=== PATIENT | male | born 1935 | race Caucasian/White ===

== ENCOUNTER → 2016-09-04 | Outpatient (CLI) | payer MEDICARE, BC ==
[2016-09-04 10:19] LABS: ALT 24 U/L (21-72); AST 21 U/L (17-59); Alkaline Phosphatase 86 U/L (38-126); Anion Gap 11 mmol/L; Blood Urea Nitrogen 22 mg/dL (9-20); Calcium 9.4 mg/dL (8.4-10.2); Carbon Dioxide 26 mmol/L (22-30); Chloride 104 mmol/L (98-107); Cholesterol 163 mg/dL (<200); Glucose 108 mg/dL (74-99); HDL Cholesterol 60 mg/dL (40-60); Non-African American GFR(MDRD) >60 (>60 ml/min/1.73 sqM); Sodium 141 mmol/L (137-145); Total Bilirubin 0.8 mg/dL (0.2-1.3); Triglycerides 82 mg/dL (<150)
== END | disposition home or self-care (01) ==
LOC: LABWHC1 09:41
PROVIDERS: ATTEND Internal Medicine Cardiovascular Disease
DX: I25.10 Atherosclerotic heart disease of native coronary artery without angina pectoris (principal); E78.5 Hyperlipidemia, unspecified
CPT/HCPCS: 36415; 80053; 80061

== ENCOUNTER → 2017-04-21 | Outpatient (CLI) | payer MEDICARE, BC ==
--- NOTE | 2017-04-21 15:05 | US ---
EXAMINATION TYPE: US duplex aorta DATE OF EXAM: 04/21/2017 COMPARISON: NONE CLINICAL HISTORY: Z87.891 HX OF NICOTINE USE,Z13.9 SCREENING. EXAM MEASUREMENTS: Abdominal Aorta: Proximal: 2.6cm Transverse Mid: 2.3cm Transverse Distal: 2.1cm Transverse Bifurcation: 1.4cm Transverse Right TARAN, and 1.4cm Transverse Left TARAN Exam is somewhat limitedly by overlying bowel gas at upper and mid aorta. Proximal abdominal aorta measures 2.4 x 2.6 cm transversely. Mid abdominal aorta measures 2.2 x 2.3 c m transversely. Distal abdominal aorta measures 2.1 x 2.1 cm transversely. Aorta is seen through comm on iliac bifurcation. IMPRESSION: Visualized portion of aorta shows no greater than 3 cm aneurysmal change on images saved.
== END | disposition home or self-care (01) ==
LOC: RADUSWWP 13:02
PROVIDERS: ATTEND Family Medicine
DX: Z09 Encounter for follow-up examination after completed treatment for conditions other than malignant neoplasm (principal); I71.4 Abdominal aortic aneurysm, without rupture; Z87.891 Personal history of nicotine dependence
CPT/HCPCS: 93979

== ENCOUNTER → 2017-06-30 | Outpatient (CLI) | payer MEDICARE, BC ==
[2017-06-30 15:56] LABS: HCT 40.3 % (39.0-53.0); HGB 12.8 gm/dL (13.0-17.5); MCH 30.2 pg (25.0-35.0); MCHC 31.9 g/dL (31.0-37.0); MCV 94.7 fL (80.0-100.0); Mean Platelet Volume 7.3; Platelet Count 176 k/uL (150-450); RBC 4.26 m/uL (4.30-5.90); WBC 6.3 k/uL (3.8-10.6)
[2017-06-30 16:07] LABS: Anion Gap 7 mmol/L; Blood Urea Nitrogen 30 mg/dL (9-20); Carbon Dioxide 27 mmol/L (22-30); Chloride 105 mmol/L (98-107); Potassium 4.8 mmol/L (3.5-5.1); Sodium 139 mmol/L (137-145)
== END | disposition home or self-care (01) ==
LOC: LABPAT 15:04
PROVIDERS: ATTEND Internal Medicine Cardiovascular Disease
DX: Z01.812 Encounter for preprocedural laboratory examination (principal); R00.1 Bradycardia, unspecified
CPT/HCPCS: 36415; 80051; 82565; 84520; 85027

== ENCOUNTER 2017-07-06 09:28 | Day surgery (SDC) | payer BC, MEDICARE ==
[2017-07-01 11:56] VITALS: BMI 28.7
[~2017-07-06 09:28] MED LIST: ceFAZolin 1,000 MG in SODIUM CHLORIDE 0.9% IRRIGATIO 250 ML IRRIGATION ONE; ceFAZolin IN SWFI 2 GM/20 ML SYRINGE IVP ONE
[2017-07-06] MEDS ORDERED: CITALOPRAM HYDROBROMIDE 20 MG TAB PO STA (09:55)
[2017-07-06] MEDS: SODIUM CHLORIDE 0.9% 1,000 ML IV SCH (09:55)
[2017-07-06 10:00] LABS: Glucose,Whole Blood 101 mg/dL (75-99)
[2017-07-06] MEDS ORDERED: SODIUM CHLORIDE 0.9% 250 ML IV ONE (11:51)
[2017-07-06] MEDS ORDERED: IOHEXOL 350 MG/ML 50ML BOTTLE INJ ONE (12:11)
[2017-07-06] MEDS ORDERED: MIDAZOLAM 2 MG/2 ML VIAL IVP ONE ×2 (12:15→12:26)
[2017-07-06] MEDS ORDERED: fentaNYL (PF) 50 MCG/ML 2 ML AMP IVP ONE (12:15)
[2017-07-06] MEDS ORDERED: ceFAZolin IN SWFI 2 GM/20 ML SYRINGE IVP ONE (12:15)
[2017-07-06] MEDS ORDERED: fentaNYL (PF) 50 MCG/ML 2 ML AMP ONE (12:19)
[2017-07-06] MEDS ORDERED: MIDAZOLAM 2 MG/2 ML VIAL ONE (12:19)
[2017-07-06] MEDS ORDERED: LIDOCAINE 2% INJ 20 MG/ML SQ ONE (12:25)
[2017-07-06] MEDS ORDERED: HYDROcodone/APAP 5-325MG 1 EACH TAB PO PRN (13:04)
[2017-07-06] MEDS ORDERED: ACETAMINOPHEN TAB 325 MG TAB PO PRN (13:04)
--- NOTE | 2017-07-06 13:12 | P.PCN ---
Date of Procedure: 07/06/17 Preoperative Diagnosis: Sick sinus syndrome, atrial fibrillation with a severe bradycardia and concomitant coronary artery disease Postoperative Diagnosis: The same Procedure(s) Performed: Single-chamber permanent pacemaker implantation, axillary venography Description of Procedure: HISTORY: This is a 82-year-old gentleman with history of ischemic heart disease and chronic atrial fibrillation. Patient has been having episodes of dizziness and severe bradycardia in spite of stopping beta blockers. Because of persistent bradycardia and need for beta adrian therapy, patient is advised to have permanent pacemaker implantation. CONSENT:I have discussed the risks, benefits and alternative therapies for the above-mentioned procedure and for both sedation/analgesia as well as necessary blood product administration, if indicated, as they pertain to this patient. The patient has indicated understanding and acceptance of the risks and procedures discussed. PROCEDURE: Patient was brought to the lab in a fasting state. Patient was prepped and draped in the usual fashion. Patient was given IV sedation with fentanyl and Versed. The skin below the right clavicle was infiltrated with lidocaine. An incision was made parallel to deltopectoral groove was deepened until the pectoral fascia was exposed. A pocket was created by blunt dissection and cautery. Axillary venography was performed to delineate the course of the axillary vein. 1 sticks was performed into extrathoracic portion of the axillary vein and one sheath was now he cannot walk sedation advanced over the guidewires and left in subclavian vein. Conscious Sedation: Versed 1 mg Fentanyl 50 g Duration 41 minutes LEADS: VENTRICULAR: This is manufactured by [employer]. Model number is [id number]. Serial number is [id number]. The ventricular lead is maneuvered l with help of a straight and curved stylets into the left ventricle apical region. Satisfactory position was obtained and threshold measurements were made. THRESHOLDS: VENTRICLE: The minimal patient threshold was 0.6 V at pulse width of 0.5 ms with impedance of 8 and 64 ohms R-wave:. 18 mV The leads and pulse generator remained in the pocket after it was washed with antibiotics. Pocket was closed in the usual fashion. The fascia was closed with 2-0 Prolene ,the subcutaneous tissue was closed with 3-0 Prolene and the skin was closed with 4-0 Prolene. PROGRAMMING: MODE: VVIR RATE: 60- 120 OUTPUT: Ventricle: 3.5 V at 0.5 ms FINAL IMPRESSION: #1. Successful implantation of single-chamber pacemaker #2. Axillary venography COMPLICATIONS: None PLAN: Patient will be monitored on the telemetry unit. Prophylactic antibiotic be continued. Chest x-ray will obtain tomorrow. If patient is stable, he'll be discharged home tomorrow morning.
[2017-07-06 17:25] LABS: Glucose,Whole Blood 137 mg/dL (75-99)
[2017-07-06 19:40] VITALS: RESP 18
[2017-07-06 20:25] LABS: Glucose,Whole Blood 135 mg/dL (75-99)
[2017-07-06] MEDS: ceFAZolin IN SWFI 2 GM/20 ML SYRINGE IVP SCH (21:41)
[2017-07-07] MEDS: ceFAZolin IN SWFI 2 GM/20 ML SYRINGE IVP SCH ×3 (03:40→16:24)
[2017-07-07] MEDS: SODIUM CHLORIDE 0.9% 1,000 ML IV SCH (05:45)
[2017-07-07 06:55] LABS: Glucose,Whole Blood 125 mg/dL (75-99)
[2017-07-07] MEDS ORDERED: CHOLECALCIFEROL 1,000 UNIT TAB PO SCH (09:00)
[2017-07-07] MEDS ORDERED: CITALOPRAM HYDROBROMIDE 20 MG TAB PO SCH (09:00)
--- NOTE | 2017-07-07 09:39 | P.DS ---
Providers Date of admission: 07/06/2017 Attending physician: Oscar Galo Primary care physician: Jw Ruby - Discharge Diagnosis(es) (1) Atrial fibrillation Current Visit: Yes Status: Acute (2) Symptomatic bradycardia Current Visit: Yes Status: Acute (3) CAD (coronary artery disease) Current Visit: Yes Status: Acute Hospital Course: This 82-year-old gentleman with history of coronary artery disease and chronic atrial fibrillation, has been having symptoms of fatigue and dizziness associated with severe bradycardia. Patient was taken off his beta adrian but continued to have severe bradycardia. Because of symptomatic bradycardia and also need for beta adrian therapy, patient is advised to have permanent pacemaker implantation. Patient was brought in for the procedure Yesterday, and a single-chamber pacemaker was inserted from the right subclavian vein approach. Patient tolerated the procedure well. He remained stable overnight. Pacemaker seems to function normally. Patient is feeling much better. His site looks normal without any hematoma. Patient complains of minimal discomfort. Chest x-ray showed proper lead position without any complications. Patient will be discharged home after the completion of the antibiotics and device check. Follow-up in the office in one week Patient Condition at Discharge: Good Plan - Discharge Summary Discharge Rx Participant: No New Discharge Prescriptions: New Cephalexin [Keflex] 500 mg PO Q8HR #10 cap HYDROcodone/APAP 5-325MG [[place] 5-325] 1 - 2 tab PO Q6HR PRN #10 tab PRN Reason: Pain Scale 1 To 5 No Action Citalopram Hydrobromide [CeleXA] 40 mg PO DAILY Apixaban [Eliquis] 5 mg PO BID Aspirin 325 mg PO DAILY metFORMIN HCL [Glucophage] 500 mg PO DAILY Cholecalciferol [Vitamin D3] 1,000 unit PO DAILY Discharge Medication List Citalopram Hydrobromide [CeleXA] 40 mg PO DAILY 03/14/16 [History] Apixaban [Eliquis] 5 mg PO BID 07/01/17 [History] Aspirin 325 mg PO DAILY 07/01/17 [History] Cholecalciferol [Vitamin D3] 1,000 unit PO DAILY 07/06/17 [History] metFORMIN HCL [Glucophage] 500 mg PO DAILY 07/06/17 [History] Cephalexin [Keflex] 500 mg PO Q8HR #10 cap 07/07/17 [Rx] HYDROcodone/APAP 5-325MG [[place] 5-325] 1 - 2 tab PO Q6HR PRN #10 tab 07/07/17 [ Rx] Follow up Appointment(s)/Referral(s): Oscar Galo MD [STAFF PHYSICIAN] - 1 Week
--- NOTE | 2017-07-07 11:12 | XR ---
EXAMINATION TYPE: XR chest 2V DATE OF EXAM: 07/07/2017 COMPARISON: Prior chest x-ray 03/14/2016 HISTORY: Lead placement check TECHNIQUE: Frontal and lateral views of the chest are obtained. FINDINGS: Interval placement of a generator in the right pectoral region, lead is present within the right ventricle. There is no focal air space opacity, pleural effusion, or pneumothorax seen. The c ardiac silhouette size is within normal limits. The osseous structures are intact. IMPRESSION: No acute cardiopulmonary process. No evident complication status post pacemaker placemen t.
[2017-07-07 12:01] LABS: Glucose,Whole Blood 106 mg/dL (75-99)
[2017-07-07 16:08] VITALS: BP 129/75; PULSE 63; TEMP 98.7
== END 2017-07-07 18:27 | disposition home or self-care (01) ==
LOC: CATHEP 09:28 → 3OBS 16:19 → CATHEP 07-07 18:27
PROVIDERS: ATTEND Internal Medicine Cardiovascular Disease
DX: I49.5 Sick sinus syndrome (principal); Z95.5 Presence of coronary angioplasty implant and graft; I48.2 Chronic atrial fibrillation; Z79.01 Long term (current) use of anticoagulants; I25.10 Atherosclerotic heart disease of native coronary artery without angina pectoris; I10 Essential (primary) hypertension; E78.5 Hyperlipidemia, unspecified; E11.9 Type 2 diabetes mellitus without complications; Z79.82 Long term (current) use of aspirin; Z87.891 Personal history of nicotine dependence; I25.2 Old myocardial infarction; Z79.84 Long term (current) use of oral hypoglycemic drugs; Z79.899 Other long term (current) drug therapy
CPT/HCPCS: 33207; 71046; C1786; C1898; J2001; J2250; J0690 ×3; J3010; Q9967

== ENCOUNTER 2018-01-05 12:35 | Inpatient (IN) | payer MEDICARE ==
[2018-01-05] MEDS ORDERED: ASPIRIN 81 MG PO STA (12:44)
[2018-01-05] MEDS ORDERED: NITROGLYCERIN OINT 1 INCH/GM PACKET TOPICAL STA (12:44)
--- NOTE | 2018-01-05 12:49 | ED ---
General Adult HPI - General Chief complaint: Shortness of Breath Stated complaint: Dyspnea Time Seen by Provider: 01/05/18 12:38 Source: patient, EMS, RN notes reviewed Mode of arrival: EMS Limitations: no limitations - History of Present Illness Initial comments: Patient is a pleasant 82-year-old male presenting to the emergency Department with chest discomfort. Patient states he did not actually have chest discomfort and was more shortness of breath. Patient does admit that his symptoms did resolve with 2 nitroglycerin. Patient states symptoms lasted less than an hour and a half. Patient was very sweaty with symptoms. No nausea. No history of similar symptoms previously. Patient states that this time he is near symptom-free. - Related Data Home Medications Medication Instructions Recorded Confirmed Citalopram Hydrobromide [CeleXA] 40 mg PO DAILY 03/14/16 01/05/18 Apixaban [Eliquis] 5 mg PO DAILY 07/01/17 01/05/18 Aspirin 325 mg PO DAILY 07/01/17 01/05/18 Cholecalciferol [Vitamin D3] 1,000 unit PO DAILY 07/06/17 01/05/18 metFORMIN HCL [Glucophage] 500 mg PO DAILY 07/06/17 01/05/18 Allergies Allergy/AdvReac Type Severity Reaction Status Date / Time codeine AdvReac Nausea & Verified 01/05/18 12:53 Vomiting Milk Containing Products AdvReac GI upset Verified 01/05/18 12:53 [Dairy] Review of Systems ROS Statement: Those systems with pertinent positive or pertinent negative responses have been documented in the HPI. ROS Other: All systems not noted in ROS Statement are negative. Constitutional: Denies: fever Eyes: Denies: eye pain ENT: Denies: ear pain Respiratory: Reports: dyspnea. Denies: cough Cardiovascular: Denies: palpitations Endocrine: Denies: fatigue Gastrointestinal: Denies: abdominal pain Genitourinary: Denies: dysuria Musculoskeletal: Denies: back pain Skin: Denies: rash Neurological: Denies: weakness Psychiatric: Reports: anxiety, depression Past Medical History Past Medical History: Diabetes Mellitus, Eye Disorder, Hypertension, Myocardial Infarction (MS) Additional Past Medical History / Comment(s): See Dr Galo's H&P. hx CATARACT rt eye, vertigo, diabetes-diet controlled, irregular heart rate Last Myocardial Infarction Date:: 2010 History of Any Multi-Drug Resistant Organisms: None Reported Past Surgical History: Heart Catheterization With Stent, Orthopedic Surgery Additional Past Surgical History / Comment(s): lt eye lens implant, rt shoulder rotator cuff repair Past Anesthesia/Blood Transfusion Reactions: Motion Sickness Date of Last Stent Placement:: 2010 Past Psychological History: Depression Smoking Status: Never smoker Past Alcohol Use History: Occasional, Rare Past Drug Use History: None Reported - Past Family History Father Family Medical History: Cancer Mother Family Medical History: Cancer Brother(s) Family Medical History: Cancer Sister(s) Family Medical History: Cancer General Exam Limitations: no limitations General appearance: alert, in no apparent distress Head exam: Present: atraumatic Eye exam: Present: normal appearance, PERRL ENT exam: Present: normal oropharynx Neck exam: Present: normal inspection Respiratory exam: Present: normal lung sounds bilaterally Cardiovascular Exam: Present: regular rate, normal rhythm Expanded Peripheral pulses: 2+: Radial (R), Radial (L), Posterior Tibialis (R), Posterior Tibialis (L) GI/Abdominal exam: Present: soft. Absent: tenderness Extremities exam: Present: normal inspection. Absent: pedal edema, calf tenderness Neurological exam: Present: alert Psychiatric exam: Present: normal affect, normal mood Skin exam: Present: normal color Course Vital Signs 01/05/18 12:38 Temperature 98 F Pulse Rate 57 L Respiratory 16 Rate Blood Pressure 128/70 O2 Sat by Pulse 99 Oximetry EKG Findings - EKG Comments: EKG Findings:: Ventricular paced rhythm with a rate of 60. QRS 152. QT 502. QTC 502. Left axis. Wide-complex QRS. Nonspecific ST-T. Medical Decision Making - Medical Decision Making Patient reevaluated and resting comfortably in bed. Patient and family updated on results and plan. Case was discussed with practitioner Ivanna, who will admit for Dr. Ruby. - Lab Data Result diagrams: 01/05/18 12:48 01/05/18 12:48 Lab Results 01/05/18 01/05/18 01/05/18 Range/Units 12:48 12:48 12:48 WBC 6.1 (3.8-10.6) k/uL RBC 4.13 L (4.30-5.90) m/uL Hgb 12.9 L (13.0-17.5) gm/dL Hct 38.0 L (39.0-53.0) % MCV 92.0 (80.0-100.0) fL MCH 31.3 (25.0-35.0) pg MCHC 34.1 (31.0-37.0) g/dL RDW 13.6 (11.5-15.5) % Plt Count 175 (150-450) k/uL Neutrophils % 74 % Lymphocytes % 17 % Monocytes % 6 % Eosinophils % 2 % Basophils % 0 % Neutrophils # 4.5 (1.3-7.7) k/uL Lymphocytes # 1.0 (1.0-4.8) k/uL Monocytes # 0.3 (0-1.0) k/uL Eosinophils # 0.1 (0-0.7) k/uL Basophils # 0.0 (0-0.2) k/uL PT (9.0-12.0) sec INR (<1.2) APTT (22.0-30.0) sec D-Dimer (<0.60) mg/L FEU Sodium 137 (137-145) mmol/L Potassium 5.4 H (3.5-5.1) mmol/L Chloride 106 (98-107) mmol/L Carbon Dioxide 23 (22-30) mmol/L Anion Gap 8 mmol/L BUN 20 (9-20) mg/dL Creatinine 1.00 (0.66-1.25) mg/dL Est GFR (CKD-EPI)AfAm 82 (>60 ml/min/1.73 sqM) Est GFR (CKD-EPI)NonAf 71 (>60 ml/min/1.73 sqM) Glucose 124 H (74-99) mg/dL Calcium 9.1 (8.4-10.2) mg/dL Magnesium 1.9 (1.6-2.3) mg/dL Total Bilirubin 0.7 (0.2-1.3) mg/dL AST 18 (17-59) U/L ALT 23 (21-72) U/L Alkaline Phosphatase 60 (38-126) U/L Total Creatine Kinase 41 L (55-170) U/L CK-MB (CK-2) 0.4 (0.0-2.4) ng/mL CK-MB (CK-2) Rel Index 1.0 Troponin I <0.012 (0.000-0.034) ng/mL NT-Pro-B Natriuret Pep pg/mL Total Protein 6.4 (6.3-8.2) g/dL Albumin 3.8 (3.5-5.0) g/dL 01/05/18 01/05/18 Range/Units 12:48 12:48 WBC (3.8-10.6) k/uL RBC (4.30-5.90) m/uL Hgb (13.0-17.5) gm/dL Hct (39.0-53.0) % MCV (80.0-100.0) fL MCH (25.0-35.0) pg MCHC (31.0-37.0) g/dL RDW (11.5-15.5) % Plt Count (150-450) k/uL Neutrophils % % Lymphocytes % % Monocytes % % Eosinophils % % Basophils % % Neutrophils # (1.3-7.7) k/uL Lymphocytes # (1.0-4.8) k/uL Monocytes # (0-1.0) k/uL Eosinophils # (0-0.7) k/uL Basophils # (0-0.2) k/uL PT 10.2 (9.0-12.0) sec INR 1.0 (<1.2) APTT 23.0 (22.0-30.0) sec D-Dimer 0.51 (<0.60) mg/L FEU Sodium (137-145) mmol/L Potassium (3.5-5.1) mmol/L Chloride (98-107) mmol/L Carbon Dioxide (22-30) mmol/L Anion Gap mmol/L BUN (9-20) mg/dL Creatinine (0.66-1.25) mg/dL Est GFR (CKD-EPI)AfAm (>60 ml/min/1.73 sqM) Est GFR (CKD-EPI)NonAf (>60 ml/min/1.73 sqM) Glucose (74-99) mg/dL Calcium (8.4-10.2) mg/dL Magnesium (1.6-2.3) mg/dL Total Bilirubin (0.2-1.3) mg/dL AST (17-59) U/L ALT (21-72) U/L Alkaline Phosphatase (38-126) U/L Total Creatine Kinase (55-170) U/L CK-MB (CK-2) (0.0-2.4) ng/mL CK-MB (CK-2) Rel Index Troponin I (0.000-0.034) ng/mL NT-Pro-B Natriuret Pep 919 pg/mL Total Protein (6.3-8.2) g/dL Albumin (3.5-5.0) g/dL - Radiology Data Radiology results: image reviewed (Chest x-ray shows no acute process) Disposition Clinical Impression: Dyspnea Disposition: ADMITTED IP TO THIS HOSP Is patient prescribed a controlled substance at d/c from ED?: No Referrals: Jw Ruby MD [Primary Care Provider] - 1-2 days Decision Time: 14:23
[2018-01-05 13:03] LABS: Basophils % (A) 0 %; Eosinophils # (A) 0.1 k/uL (0-0.7); Eosinophils % (A) 2 %; HGB 12.9 gm/dL (13.0-17.5); Lymphocytes % (A) 17 %; MCH 31.3 pg (25.0-35.0); MCHC 34.1 g/dL (31.0-37.0); Mean Platelet Volume 6.4; Monocytes # (A) 0.3 k/uL (0-1.0); Monocytes % (A) 6 %; Neutrophils # (A) 4.5 k/uL (1.3-7.7); Neutrophils % (A) 74 %; Platelet Count 175 k/uL (150-450); RBC 4.13 m/uL (4.30-5.90); RDW 13.6 % (11.5-15.5); WBC 6.1 k/uL (3.8-10.6)
--- NOTE | 2018-01-05 13:10 | XR ---
EXAMINATION TYPE: XR chest 2V DATE OF EXAM: 01/05/2018 COMPARISON: 07/07/2017 HISTORY: Chest pain and shortness of breath TECHNIQUE: Frontal and lateral views of the chest are obtained. FINDINGS: There is chronic right hemidiaphragm elevation and eventration. Chronic interstitial promi nence is also seen. Cardiac silhouette is again upper limits of normal with single lead right-sided c ardiac device. Postsurgical changes or posterior matter changes of the right acromioclavicular joint are seen with joint space widening. There is no new focal consolidation, pleural effusion or pneumoth orax. Multilevel moderate degenerative changes of the spine are noted. IMPRESSION: Chronic changes with no acute cardiopulmonary process.
[2018-01-05 13:16] LABS: Albumin 3.8 g/dL (3.5-5.0); Calcium 9.1 mg/dL (8.4-10.2); D-Dimer 0.51 mg/L FEU (<0.60); Magnesium 1.9 mg/dL (1.6-2.3); Potassium 5.4 mmol/L (3.5-5.1); Prothrombin Time 10.2 sec (9.0-12.0); Total Bilirubin 0.7 mg/dL (0.2-1.3); Total Protein 6.4 g/dL (6.3-8.2)
[2018-01-05 13:31] LABS: Creatine Kinase 41 U/L (55-170)
[2018-01-05 13:44] LABS: Creatine Kinase MB 0.4 ng/mL (0.0-2.4); Troponin I <0.012 ng/mL (0.000-0.034)
[2018-01-05] MEDS ORDERED: NITROGLYCERIN SL TABS 0.4 MG TAB SUBLINGUAL PRN (14:23)
[2018-01-05] MEDS: NITROGLYCERIN OINT 1 INCH/GM PACKET TOPICAL SCH ×2 (19:24→23:12)
[2018-01-05 20:02] LABS: Creatine Kinase 37 U/L (55-170)
[2018-01-05 20:16] LABS: Creatine Kinase MB 0.4 ng/mL (0.0-2.4); Troponin I <0.012 ng/mL (0.000-0.034)
[2018-01-05] MEDS ORDERED: ALPRAZolam 0.25 MG TAB PO PRN (21:58)
[2018-01-05] MEDS ORDERED: ACETAMINOPHEN TAB 500 MG TAB PO PRN (21:58)
--- NOTE | 2018-01-05 23:03 | HP ---
HISTORY AND PHYSICAL DATE OF SERVICE: 01/05/2018 I am covering for Dr. Ruby. CHIEF COMPLAINTS: Shortness of breath and light-headedness and dizziness. HISTORY OF PRESENT ILLNESS: This 82-year-old gentleman with a past medical history of multiple medical problems, including history of CAD, diabetes mellitus, hypertension, myocardial infarction, history of CAD, stent, history of pacemaker being followed by Dr. Jw Ruby and Dr. Galo in the outpatient setting, apparently felt sudden onset of shortness of breath, dizzy and some headache today and the patient came to [facility], admitted for further evaluation and treatment. The patient also had some chest pain per the records which resolved with 2 sublingual nitro. There is no history of any fever, rigors or chills at this time. PAST MEDICAL HISTORY: CAD, diabetes mellitus, hypertension, myocardial infarction, history of atrial fibrillation, CAD, stent. MEDICATIONS PRIOR TO ADMISSION: Home medications are: 1. Eliquis 5 mg p.o. daily. 2. Glucophage 500 mg daily. 3. Celexa 40 mg daily. 4. Vitamin D3 1000 daily. 5. Aspirin 320 mg daily. ALLERGIES: None. FAMILY HISTORY: History of cancer in the family. SOCIAL HISTORY: Previous history of smoking. No history of current smoking or alcohol intake. REVIEW OF SYSTEMS: ENT: No diminished hearing, diminished vision. CARDIOVASCULAR: As mentioned earlier. RESPIRATORY: As mentioned earlier. GI: No nausea or vomiting. : No dysuria. NERVOUS: No numbness or weakness. ALLERGY/IMMUNOLOGY: No asthma or hay fever. MUSCULOSKELETAL: As mentioned earlier. HEMATOLOGY/ONCOLOGY: No history of anemia. ENDOCRINE: As mentioned earlier. CONSTITUTIONAL: As mentioned earlier. DERMATOLOGY: Negative. RHEUMATOLOGY: Negative. PSYCHIATRY: As mentioned earlier. PHYSICAL EXAMINATION: The patient is alert and oriented x3. Pulse 61, blood pressure 136/75, respirations 18, temperature 98.4, pulse ox 98% on room air. HEENT: Conjunctivae normal. Oral mucosa moist. NECK: No jugular venous distention. No carotid bruits. No lymph node enlargement. CARDIOVASCULAR: S1, S2 muffled. RESPIRATORY: Breath sounds diminished in the bases. No rhonchi. No crackles. ABDOMEN: Soft, nontender. No mass palpable. LEGS: No edema. No swelling. NERVOUS SYSTEM: Higher functions as mentioned earlier. Moves all 4 limbs. No focal motor or sensory deficits. LYMPHATIC: No lymphadenopathy in neck or axillae. SKIN: No ulcer, rash or bleeding. LABS: WBC 6.2, hemoglobin is 12.9. Sodium 139, potassium 5.4. ASSESSMENT: 1. Light-headedness, dizziness and presyncope, rule out cardiac arrhythmia. 2. History of recent pacemaker implantation. 3. Coronary artery disease. 4. Diabetes mellitus type 2. 5. Hypertension. 6. History of myocardial infarction next. 7. History of coronary artery disease, stent. 8. History of depression. RECOMMENDATION AND DISCUSSION: In this 82-year-old gentleman who presented with multiple complex medical issues, will monitor the patient closely, continue the current medical management and symptomatic treatment. At this time, I recommend a cardiology consultation, orthostatic vitals, rule out myocardial infarction, resume the home medications, repeat labs. Guarded prognosis because of multiple complex medical issues. Further recommendations to follow. A copy of this dictation will be forwarded to Dr. Jw Ruby, who is the primary physician. MMADRY / HARRISN: [id number] /
[2018-01-06 01:35] LABS: Creatine Kinase 36 U/L (55-170)
[2018-01-06 01:49] LABS: Creatine Kinase MB 0.4 ng/mL (0.0-2.4); Troponin I <0.012 ng/mL (0.000-0.034)
[2018-01-06] MEDS: NITROGLYCERIN OINT 1 INCH/GM PACKET TOPICAL SCH ×3 (05:20→20:01)
[2018-01-06 07:03] LABS: Basophils % (A) 0 %; Eosinophils # (A) 0.1 k/uL (0-0.7); Eosinophils % (A) 3 %; HCT 36.9 % (39.0-53.0); HGB 12.3 gm/dL (13.0-17.5); Lymphocytes # (A) 1.3 k/uL (1.0-4.8); Lymphocytes % (A) 24 %; MCH 30.8 pg (25.0-35.0); MCHC 33.2 g/dL (31.0-37.0); MCV 92.8 fL (80.0-100.0); Mean Platelet Volume 6.9; Monocytes # (A) 0.3 k/uL (0-1.0); Monocytes % (A) 6 %; Neutrophils # (A) 3.5 k/uL (1.3-7.7); Neutrophils % (A) 65 %; Platelet Count 154 k/uL (150-450); RBC 3.98 m/uL (4.30-5.90); RDW 13.5 % (11.5-15.5); WBC 5.5 k/uL (3.8-10.6)
[2018-01-06 07:20] LABS: Glucose,Whole Blood 100 mg/dL (75-99)
[2018-01-06 07:32] LABS: Potassium 4.8 mmol/L (3.5-5.1)
[2018-01-06] MEDS ORDERED: metFORMIN 500 MG TAB PO SCH (09:00)
[2018-01-06] MEDS ORDERED: APIXABAN 5 MG TAB PO SCH (09:00)
[2018-01-06] MEDS ORDERED: ATORVASTATIN 80 MG TAB PO STA (09:49)
[2018-01-06] MEDS ORDERED: SODIUM CHLORIDE 0.9% 1,000 ML in EMPTY BAG 1 BAG IV ONE (09:49)
[2018-01-06] MEDS: INSULIN ASPART 100 UNIT/ML 1 ML 10 ML VIAL SQ SCH ×4 (10:21→20:07)
[2018-01-06] MEDS: ASPIRIN 325 MG TAB PO SCH (10:22)
[2018-01-06] MEDS: CHOLECALCIFEROL 1,000 UNIT TAB PO SCH (10:23)
[2018-01-06] MEDS: CITALOPRAM HYDROBROMIDE 20 MG TAB PO SCH (10:23)
--- NOTE | 2018-01-06 11:06 | ECHOF ---
Referral Reason:sob MEASUREMENTS -------- HEIGHT: 162.6 cm WEIGHT: 92.1 kg BP: 115/71 RVIDd: 2.9 cm (< 3.3) IVSd: 1.3 cm (0.6 - 1.1) LVIDd: 5.1 cm (3.9 - 5.3) LVPWd: 1.1 cm (0.6 - 1.1) IVSs: 1.5 cm LVIDs: 4.2 cm LVPWs: 1.7 cm LA Diam: 4.4 cm (2.7 - 3.8) LAESV Index (A-L): 50.04 ml/m Ao Diam: 3.4 cm (2.0 - 3.7) AV Cusp: 2.0 cm (1.5 - 2.6) LA Diam: 4.6 cm (2.7 - 3.8) MV EXCURSION: 18.807 mm (> 18.000) MV EF SLOPE: 108 mm/s (70 - 150) EPSS: 1.4 cm MV E Tacos: 0.73 m/s MV DecT: 194 ms MV A Tacos: 0.20 m/s MV E/A Ratio: 3.68 RAP: 5.00 mmHg RVSP: 25.11 mmHg FINDINGS -------- Paced rhythm. This was a technically adequate study. The left ventricular size is normal. There is mild concentric left ventricular hypertrophy. Overa ll left ventricular systolic function is low-normal with, an EF between 50 - 55 %. The right ventricle is normal in size. The left atrium is moderately dilated. LA is severely dilated >40 ml/m2 The right atrial size is normal. Trace to mild aortic regurgitation. Mild mitral annular calcification present. Mild mitral regurgitation is present. Mild tricuspid regurgitation present. There is no evidence of pulmonary hypertension. The right v entricular systolic pressure, as measured by Doppler, is 25.11mmHg. There is no pulmonic regurgitation present. The aortic root size is normal. Echo free space represents a pericardial fat pad. CONCLUSIONS -------- 1. The left ventricular size is normal. 2. There is mild concentric left ventricular hypertrophy. 3. Overall left ventricular systolic function is low-normal with, an EF between 50 - 55 %. 4. The right ventricle is normal in size. 5. The left atrium is moderately dilated. 6. LA is severely dilated >40 ml/m2 7. The right atrial size is normal. 8. Trace to mild aortic regurgitation. 9. Mild mitral annular calcification present. 10. Mild mitral regurgitation is present. 11. Mild tricuspid regurgitation present. 12. There is no evidence of pulmonary hypertension. 13. The right ventricular systolic pressure, as measured by Doppler, is 25.11mmHg. 14. There is no pulmonic regurgitation present. 15. The aortic root size is normal. 16. Echo free space represents a pericardial fat pad. [employer] EXECUTIVE: Baylee Son RDCS
--- NOTE | 2018-01-06 11:55 | P.CRDCN ---
History of Present Illness History of present illness: Mr. Ramirez is a pleasant 82-year-old male past medical history significant for coronary artery disease status post angioplasty of the mid LAD in 2013, hypertension, dyslipidemia, diabetes mellitus, chronic persistent atrial fibrillation on long-term anticoagulation and status post permanent pacemaker implantation. He follows with Dr. Galo in the office. We have been asked to see him in consultation for symptoms of shortness of breath. Patient states he was up yesterday morning and went out to let his chickens out in the yard and he started feeling short of breath. He said by the time he was done with his normal routine with his chickens lasting around 10 minutes he could barely make it back to the house he was so short of breath. He went in the house to sit down and shortness of breath seemed to get a little bit better but was still there. He proceeded to make breakfast for himself and his and shortness of breath again came back and became very intense. He was unable to complete making breakfast. He decided to take a sublingual nitroglycerin which had no effect on his symptoms. He took a second nitroglycerin and his symptoms started to decrease lower still mildly evident. He denies associated chest pain. He did feel lightheaded and diaphoretic. He denies nausea or vomiting. EKG reveals atrial fibrillation with controlled ventricular response. Heart rate 60. Incomplete intraventricular block. Chest x-ray negative for an acute cardiopulmonary process. Laboratory data reviewed, hemoglobin 12.3, platelets 154, d-dimer 0.51, sodium 138, potassium 4.8, creatinine 1.04, magnesium 1.9, cardiac enzymes negative 3 , LDL 81 and HDL 47. Current cardiac medications includes Eliquis 5 mg daily and aspirin 325 mg daily. He also takes Glucophage, Celexa and vitamin D. Review of Systems At the time of my exam: CONSTITUTIONAL: Denies fever. Denies chills. EYES: Denies blurred vision. Denies vision changes. Denies eye pain. EARS, NOSE, MOUTH & THROAT: Denies headache. Denies sore throat. Denies ear pain. CARDIOVASCULAR: Denies chest pain. Denies shortness of breath. Denies orthopnea. Denies PND. Denies palpitations. RESPIRATORY: Denies cough. GASTROINTESTINAL: Denies abdominal pain. Denies diarrhea. Denies constipation. Denies nausea. Denies vomiting. MUSCULOSKELETAL: Denies myalgias. INTEGUMENTARY: Denies pruitis. Denies rash. NEUROLOGIC: Denies numbness. Denies tingling. Denies weakness. PSYCHIATRIC: Denies anxiety. Denies depression. ENDOCRINE: Denies fatigue. Denies weight change. Denies polydipsia. Denies polyurina. GENITOURINARY: Denies burning, hematuria or urgency with micturation. HEMATOLOGIC: Denies history of anemia. Denies bleeding. Past Medical History Past Medical History: Coronary Artery Disease (CAD), Diabetes Mellitus, Eye Disorder, Hypertension, Myocardial Infarction ([place]) Additional Past Medical History / Comment(s): See Dr Galo's H&P. past cataracts, vertigo/balance issues. 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 Last Myocardial Infarction Date:: 2010 History of Any Multi-Drug Resistant Organisms: None Reported Past Surgical History: Heart Catheterization With Stent, Orthopedic Surgery, Pacemaker Additional Past Surgical History / Comment(s): lt eye lens implant, laser eye sx rt eye,rt shoulder rotator cuff repair Past Anesthesia/Blood Transfusion Reactions: Motion Sickness Date of Last Stent Placement:: 2010 Type of Cardiac Device: Permanent Pacemaker Device Placement Date:: 2017 Smoking Status: Former smoker - Past Family History Father Family Medical History: Cancer Mother Family Medical History: Cancer Brother(s) Family Medical History: Cancer Sister(s) Family Medical History: Cancer Medications and Allergies Home Medications Medication Instructions Recorded Confirmed Type Citalopram Hydrobromide [CeleXA] 40 mg PO DAILY 03/14/16 01/05/18 History Apixaban [Eliquis] 5 mg PO DAILY 07/01/17 01/05/18 History Aspirin 325 mg PO DAILY 07/01/17 01/05/18 History Cholecalciferol [Vitamin D3] 1,000 unit PO DAILY 07/06/17 01/05/18 History metFORMIN HCL [Glucophage] 500 mg PO DAILY 07/06/17 01/05/18 History Allergies Allergy/AdvReac Type Severity Reaction Status Date / Time No Known Allergies Allergy Verified 01/05/18 19:41 Physical Exam Vitals: Vital Signs Temp Pulse Pulse Pulse Pulse Pulse Resp 01/06/18 04:00 97.8 F 60 18 01/06/18 00:00 98.4 F 58 L 18 01/05/18 20:47 61 83 63 01/05/18 20:00 18 01/05/18 19:15 98.4 F 61 18 01/05/18 18:37 62 16 01/05/18 16:21 61 18 01/05/18 14:52 98 F 71 16 01/05/18 12:38 98 F 57 L 16 BP BP BP BP BP Pulse Ox 01/06/18 04:00 115/71 98 01/06/18 00:00 126/82 96 01/05/18 20:47 136/75 115/75 124/76 97 01/05/18 20:00 01/05/18 19:15 125/78 98 01/05/18 18:37 119/63 99 01/05/18 16:21 103/59 98 01/05/18 14:52 115/77 99 01/05/18 12:38 128/70 99 Intake and Output 01/05/18 01/06/18 01/06/18 22:59 06:59 14:59 Intake Total 100 Balance 100 Intake: Oral 100 Other: # Voids 1 Weight 92.4 kg Blood pressure 115/71 heart rate 60 afebrile maintaining oxygen saturation on room air GENERAL: This is a 82-year-old in no apparent distress at the time of my examination. HEENT: Head is atraumatic, normocephalic. Pupils are equal, round. Sclerae anicteric. Conjunctivae are clear. Mucous membranes of the mouth are moist. Neck is supple. There is no jugular venous distention. No carotid bruit is heard. LUNGS: Clear to auscultation no wheezes, rales or rhonchi. No chest wall tenderness is noted on palpation or with deep breathing. HEART: Irregular rate and rhythm without murmurs, rubs or gallops. S1 and S2 heard. ABDOMEN: Soft, nontender. Bowel sounds are heard. No organomegaly noted. EXTREMITIES: No evidence of peripheral edema and no calf tenderness noted. VASCULAR: Radial and dorsalis pedis pulses palpated, no evidence of clubbing. NEUROLOGIC: Patient is awake, alert and oriented x3. Results 01/06/18 06:23 01/06/18 06:23 Cardiac Enzymes 01/05/18 01/05/1818 Range/Units 12:48 12:48 19:25 AST 18 (17-59) U/L CK-MB (CK-2) 0.4 0.4 (0.0-2.4) ng/mL Troponin I <0.012 <0.012 (0.000-0.034) ng/mL 01/06/18 Range/Units 00:41 AST (17-59) U/L CK-MB (CK-2) 0.4 (0.0-2.4) ng/mL Troponin I <0.012 (0.000-0.034) ng/mL Coagulation 01/05/18 Range/Units 12:48 PT 10.2 (9.0-12.0) sec APTT 23.0 (22.0-30.0) sec Lipids 01/06/18 Range/Units 06:23 Triglycerides 77 (<150) mg/dL Cholesterol 143 (<200) mg/dL HDL Cholesterol 47 (40-60) mg/dL CBC 01/05/18 01/06/18 Range/Units 12:48 06:23 WBC 6.1 5.5 (3.8-10.6) k/uL RBC 4.13 L 3.98 L (4.30-5.90) m/uL Hgb 12.9 L 12.3 L (13.0-17.5) gm/dL Hct 38.0 L 36.9 L (39.0-53.0) % Plt Count 175 154 (150-450) k/uL Comprehensive Metabolic Panel 01/05/18 01/06/18 Range/Units 12:48 06:23 Sodium 137 138 (137-145) mmol/L Potassium 5.4 H 4.8 (3.5-5.1) mmol/L Chloride 106 106 (98-107) mmol/L Carbon Dioxide 23 26 (22-30) mmol/L BUN 20 22 H (9-20) mg/dL Creatinine 1.00 1.04 (0.66-1.25) mg/dL Glucose 124 H 95 (74-99) mg/dL Calcium 9.1 9.0 (8.4-10.2) mg/dL AST 18 (17-59) U/L ALT 23 (21-72) U/L Alkaline Phosphatase 60 (38-126) U/L Total Protein 6.4 (6.3-8.2) g/dL Albumin 3.8 (3.5-5.0) g/dL Current Medications Generic Name Dose Route Start Last Admin Trade Name Freq PRN Reason Stop Dose Admin Acetaminophen 500 mg 01/05/18 21:58 Tylenol Tab PO Q6HR PRN Fever and/ or Pain Alprazolam 0.25 mg 01/05/18 21:58 Xanax PO TID PRN Anxiety Apixaban 5 mg 01/06/18 09:00 Eliquis PO DAILY [facility] Aspirin 325 mg 01/06/18 09:00 Aspirin PO DAILY [facility] Cholecalciferol 1,000 unit 01/06/18 09:00 Vitamin D3 PO DAILY [facility] Citalopram Hydrobromide 40 mg 01/06/18 09:00 Celexa PO DAILY [facility] Insulin Aspart 0 unit 01/06/18 07:30 Novolog SQ ACHS [facility] Protocol Melatonin 3 mg 01/06/18 21:00 Melatonin PO HS [facility] Metformin HCl 500 mg 01/06/18 09:00 Glucophage PO DAILY [facility] Nitroglycerin 1 inch 01/05/18 18:00 01/06/18 05:20 Nitro-Bid Oint TOPICAL Not Given Q6HR [facility] Nitroglycerin 0.4 mg 01/05/18 14:23 Nitrostat SUBLINGUAL Q5M PRN Chest Pain Sodium Chloride 10 ml 01/05/18 21:00 01/05/18 23:11 Saline Flush IV 10 ml BID [facility] Administration Intake and Output 01/05/18 01/06/18 01/06/18 22:59 06:59 14:59 Intake Total 100 Balance 100 Intake: Oral 100 Other: # Voids 1 Weight 92.4 kg 01/06/18 06:23 01/06/18 06:23 Assessment and Plan Assessment: ASSESSMENT Unstable angina History of coronary artery disease s/p angioplasty mid-LAD 2012 Chronic permanent atrial fibrillation on custodial anticoagulation with eliquis Sick sinus syndrome s/p permanent pacemaker implantation Diabetes mellitus PLAN Obtain 2D echocardiogram and doppler study to assess cardiac structure and function. Symptoms are indicative of unstable angina and we recommend cardiac catheterization per his primary home service technician Dr. Galo. I have discussed the risks, benefits and alternative therapies for the above-mentioned procedure and for both sedation/analgesia as well as necessary blood product administration, if indicated, as they pertain to this patient. The patient has indicated understanding and acceptance of the risks and procedures discussed. He is agreeable to move forward with above stated procedure. Last dose of Eliquis was yesterday morning. We will continue to hold and hold metformin as well. Procedure scheduled for tomorrow morning. Thank you kindly for this consultation. The above impression and plan of care have been discussed and directed by the signing physician. Dana Rizvi, nurse practitioner, acting as scribe for signing physician.
[2018-01-06 12:11] LABS: Glucose,Whole Blood 93 mg/dL (75-99)
[2018-01-06 13:47] LABS: Hemoglobin A1C 5.2 % (4.0-6.0)
--- NOTE | 2018-01-06 15:52 | PN ---
PROGRESS NOTE DATE OF SERVICE: 01/06/2018 I am covering for Dr. Ruby. This 82-year-old gentleman who was admitted with light headedness, dizziness and some chest pains, was evaluated by Cardiology at this time. Cardiology is planning cardiac catheterization. No chest pain. No palpitations. No fever. PHYSICAL EXAM: Alert and oriented x3. Pulse is 64. Blood pressure 120/88, respirations 16, temperature 97.8, pulse ox 97% on room air. HEENT: Conjunctivae normal. Oral mucosa moist. Neck is no jugular venous distention. No carotid bruit. No lymph node enlargement. CARDIOVASCULAR: S1, S2 muffled. Respiratory: Breath sounds diminished in the bases. No rhonchi. No crackles. ABDOMEN: Soft, nontender. Legs: No edema. No swelling. Central nervous system: No focal deficits. LAB STUDIES: WBC 5.7, hemoglobin 12.3. Otherwise 2D echo showed ejection fraction about 50-55%. ASSESSMENT: 1. Lightheadedness, dizziness and chest pain. Presyncope, rule out coronary artery disease. 2. History of recent pacemaker implantation. 3. History of coronary artery disease. 4. Diabetes type 2. 5. Hypertension. 6. History of myocardial infarction. 7. History of coronary artery disease/stent. 8. History of depression. RECOMMENDATIONS AND DISCUSSION: Recommend to continue current medications, management and symptomatic treatment. Otherwise, repeat labs. Closely follow with Cardiology, cardiac cath. See orders for further details. Further recommendations to follow. MMODL / IJN: [id number] /
[2018-01-06 17:10] LABS: Glucose,Whole Blood 131 mg/dL (75-99)
[2018-01-06 20:07] LABS: Glucose,Whole Blood 110 mg/dL (75-99)
[2018-01-06] MEDS: MELATONIN 3 MG TABLET PO SCH (20:09)
[2018-01-07] MEDS: NITROGLYCERIN OINT 1 INCH/GM PACKET TOPICAL SCH ×2 (01:59→02:00)
[2018-01-07] MEDS: CITALOPRAM HYDROBROMIDE 20 MG TAB PO SCH (06:23)
[2018-01-07] MEDS: ASPIRIN 325 MG TAB PO SCH (06:23)
[2018-01-07] MEDS: CHOLECALCIFEROL 1,000 UNIT TAB PO SCH (06:23)
[2018-01-07 06:56] LABS: Glucose,Whole Blood 105 mg/dL (75-99)
[2018-01-07] MEDS ORDERED: IV FLUID CONTINUATION 1,000 ML IV ONE (07:20)
[2018-01-07] MEDS ORDERED: LIDOCAINE 1% INJ 10MG/ML (20 ML MDV) ONE (07:23)
[2018-01-07] MEDS ORDERED: fentaNYL (PF) 50 MCG/ML 2 ML AMP ONE (07:23)
[2018-01-07] MEDS ORDERED: MIDAZOLAM 2 MG/2 ML VIAL ONE (07:23)
[2018-01-07] MEDS ORDERED: MIDAZOLAM 2 MG/2 ML VIAL IV ONE (07:25)
[2018-01-07] MEDS: fentaNYL (PF) 50 MCG/ML 2 ML AMP IV ONE ×2 (07:25→08:15)
[2018-01-07] MEDS ORDERED: LIDOCAINE 1% INJ 10MG/ML (20 ML MDV) SQ ONE (07:29)
[2018-01-07 07:41] LABS: Basophils % (A) 0 %; Eosinophils # (A) 0.2 k/uL (0-0.7); Eosinophils % (A) 3 %; HCT 39.2 % (39.0-53.0); HGB 12.7 gm/dL (13.0-17.5); Lymphocytes # (A) 1.3 k/uL (1.0-4.8); Lymphocytes % (A) 22 %; MCH 30.4 pg (25.0-35.0); MCHC 32.4 g/dL (31.0-37.0); MCV 93.8 fL (80.0-100.0); Mean Platelet Volume 6.8; Monocytes # (A) 0.3 k/uL (0-1.0); Monocytes % (A) 6 %; Neutrophils # (A) 4.1 k/uL (1.3-7.7); Neutrophils % (A) 68 %; Platelet Count 168 k/uL (150-450); RBC 4.18 m/uL (4.30-5.90); RDW 13.4 % (11.5-15.5)
[2018-01-07] MEDS ORDERED: BIVALIRUDIN BOLUS 250 MG/50 ML IV ONE (07:50)
[2018-01-07] MEDS ORDERED: CLOPIDOGREL 75 MG TAB ONE (07:51)
[2018-01-07] MEDS ORDERED: BIVALIRUDIN 250 MG in SODIUM CHLORIDE 0.9% 50 ML IV ONE ×4 (07:53)
[2018-01-07 07:55] LABS: Calcium 9.3 mg/dL (8.4-10.2)
[2018-01-07] MEDS ORDERED: CLOPIDOGREL 75 MG TAB PO ONE (07:55)
--- NOTE | 2018-01-07 08:00 | P.CARDCATH ---
Date of Procedure: 01/07/18 Preoperative Diagnosis: Unstable angina.This is a 82-year-old gentleman with history of previous stent placement of the left anterior descending coronary artery who was admitted to the hospital with symptoms sized unstable angina. Patient is advised to have a cardiac catheterization for definitive diagnosis. Postoperative Diagnosis: The same Procedure(s) Performed: Left heart catheterization without left ventriculography Description of Procedure: HISTORY: This 82-year-old gentleman with history of previous stent placement of the LAD in the setting of acute myocardial infarction done about 5 years ago. He is admitted to the hospital with symptoms of unstable angina. Patient is advised to have cardiac catheterization. CONSENT:I have discussed the risks, benefits and alternative therapies for the above-mentioned procedure and for both sedation/analgesia as well as necessary blood product administration, if indicated, as they pertain to this patient. The patient has indicated understanding and acceptance of the risks and procedures discussed. [] PROCEDURE: Patient was brought to the lab in a fasting state. Patient was given some IV sedation. The right groin is infiltrated with lidocaine and right femoral artery was entered using Seldinger technique. A 6-Hebrew catheter was left in place and selective coronary arteriography was performed. Patient tolerated the procedure well. No immediate complications were noted . Patient was found to have critical lesion involving the mid LAD within the stented area. Patient is going to have stent placement by Dr. Garcia. Conscious Sedation: Versed 1mg Fentanyl 25 g Duration 15minutes HEMODYNAMICS: [] SELECTIVE CORONARY ARTERIOGRAPHY: LEFT MAIN: Long and patent. THE LEFT ANTERIOR DESCENDING CORONARY ARTERY: This is a good caliber vessel in the proximal portion with mild diffuse plaque. There is heavy calcification of the proximal LAD. There is a in-stent stenosis in the morning mid LAD with about 80-90% stenosis. The vessel appears is small in caliber in the distal distribution. There were 2 diagonal branches with mild to moderate disease. THE LEFT CIRCUMFLEX AND IS CORONARY ARTERY: This is a good caliber vessel, mainly consisting of OM branch. Free of any occlusive disease THE RIGHT CORONARY ARTERY: This is a dominant vessel giving rise to PDA and PLV branches. The large in caliber proximally but the distal vessels appeared to be small. There is mild plaque in the RCA without any significant focal lesions. LEFT VENTRICULOGRAPHY: Not performed FINAL IMPRESSION: There is critical stenosis of the mid LAD within the stented area. Rest of the vessel so calcification and diffuse plaque without any focal lesions. PLAN:Repeat Stent placement of the LAD PROGNOSIS: Fair
[2018-01-07] MEDS ORDERED: IOPAMIDOL-370 125ML BTL INJ ONE (08:10)
[2018-01-07] MEDS ORDERED: IOPAMIDOL-370 100ML BTL INJ ONE (08:19)
[2018-01-07] MEDS ORDERED: ONDANSETRON 4 MG/2 ML VIAL ONE (08:24)
[2018-01-07] MEDS ORDERED: ONDANSETRON 4 MG/2 ML VIAL IVP ONE (08:25)
[2018-01-07] MEDS ORDERED: ZOLPIDEM 5 MG TAB PO PRN (08:28)
[2018-01-07] MEDS ORDERED: MAG HYDROX/AL HYDROX/SIMETH 30 ML CUP PO PRN (08:28)
[2018-01-07] MEDS ORDERED: RX INFO: IV CONTRAST WAS GIVEN 1 EACH MISC MISCELLANE PRN (08:28)
[2018-01-07] MEDS ORDERED: NITROGLYCERIN SL TABS 0.4 MG TAB SUBLINGUAL PRN (08:28)
[2018-01-07] MEDS ORDERED: ATROPINE SULFATE 0.1 MG/ML 10ML SYRINGE IV PRN (08:28)
[2018-01-07] MEDS ORDERED: SODIUM CHLORIDE 0.9% 1,000 ML IV SCH (08:30)
--- NOTE | 2018-01-07 08:56 | PTCA ---
PERCUTANEOUSTRANS CORORONARY ANGIOGRAPHY Mr. Ramirez is an 82-year-old male with a known history of coronary artery disease, history of persistent chronic atrial fibrillation who presented with symptoms of unstable angina, underwent cardiac catheterization by Dr. Galo, was found to have significant stenosis involving the mid LAD with in-stent restenoses that was placed 5 years ago. In view of that, recommendation made regarding coronary angioplasty and stenting. The procedures, risks and complications were discussed with the patient who is in full understanding and agreement. PROCEDURE: A 6-Ukrainian FR4 guiding catheter introduced into the system, after cannulating the left main, a 0.014 balanced medium weight J-wire was advanced across the lesion, positioned distally. Then a 2.25 x 12 mm Trek balloon was advanced, one inflation at 10 atmospheres was done. Following that, the balloon was removed and a 2.25 x 18 mm Xience Alpine stent was deployed, postdilated at 16 atmospheres. After the last inflation, after appropriate wait, the balloon and the guidewire were withdrawn back in the guiding catheter. Images were obtained, repeated. Those images reveal stable successful stenting. At that point, the guiding catheter, the balloon and the guidewire were removed. The sheath was removed. Hemostasis was obtained with deployment of an Angio-Seal. There was no immediate complication. Patient is returned to his room in stable condition. Of note, patient had no chest discomfort or EKG changes with the inflations. He received Angiomax per protocol as well as oral loading dose of clopidogrel. RESULTS: Successful stenting of the mid LAD with reduction of stenosis from 80% to 0% in a heavily calcified vessel. RECOMMENDATION: Patient will be continued on aspirin, Plavix and statin. I will continue the aspirin for 6 weeks, then we will stop the aspirin. Continue on the Eliquis and the Plavix. Those findings and recommendation were discussed with the patient and his family who is in full understanding and agreement. Duration of the procedure is 20 minutes. MMODL / IJN: [id number] /
[2018-01-07 08:59] LABS: Glucose,Whole Blood 104 mg/dL (75-99)
[2018-01-07] MEDS: INSULIN ASPART 100 UNIT/ML 1 ML 10 ML VIAL SQ SCH ×4 (08:59→22:20)
[2018-01-07 10:50] VITALS: BMI 28.4
[2018-01-07 11:49] LABS: Glucose,Whole Blood 114 mg/dL (75-99)
[2018-01-07] MEDS: LISINOPRIL 5 MG TAB PO SCH (12:19)
[2018-01-07] MEDS: glipiZIDE 5 MG TAB PO SCH (12:19)
[2018-01-07] MEDS: ATORVASTATIN 40 MG TAB PO SCH (12:20)
--- NOTE | 2018-01-07 16:26 | PN ---
PROGRESS NOTE DATE OF SERVICE: 01/07/2018 I am covering for Dr. Ruby. This 82-year-old gentleman was admitted with multiple medical problems dizziness and chest pain, had a cardiac catheterization and LAD stenting today. No chest pain. No palpitations. No fever. EXAM: Alert and oriented x3. The pulse is 60, blood pressure is 120/82, respiration 20, temperature is normal, pulse ox 98% on room air. HEENT: Conjunctivae normal. NECK: No jugular venous distention. CARDIOVASCULAR: S1, S2. RESPIRATORY: Breath sounds diminished in the bases. No rhonchi, no crackles. ABDOMEN: Soft, nontender. LEGS: No edema. No swelling. NERVOUS SYSTEM: No focal deficits. LABS: WBC 6, hemoglobin 12.7. ASSESSMENT: 1. Coronary artery disease, status post cardiac catheterization and LAD stenting. 2. History of recent pacemaker implantation. 3. History of coronary artery disease. 4. Diabetes mellitus type 2. 5. Hypertension. 6. History of myocardial infarction. 7. History of depression. RECOMMENDATIONS AND DISCUSSION: I recommend to continue current management and symptomatic treatment. Continue with antiplatelet agents. Continue the rest of medications closely. Beta blockers. Closely follow with Cardiology. Further recommendations to follow. MMODL / IJN: [id number] /
[2018-01-07 16:49] LABS: Glucose,Whole Blood 87 mg/dL (75-99)
[2018-01-07] MEDS: MELATONIN 3 MG TABLET PO SCH (21:00)
[2018-01-07 21:09] LABS: Glucose,Whole Blood 96 mg/dL (75-99)
[2018-01-08 05:52] LABS: Glucose,Whole Blood 128 mg/dL (75-99)
[2018-01-08] MEDS: INSULIN ASPART 100 UNIT/ML 1 ML 10 ML VIAL SQ SCH ×2 (06:16→12:06)
[2018-01-08] MEDS: glipiZIDE 5 MG TAB PO SCH (06:29)
[2018-01-08 06:53] LABS: Basophils % (A) 0 %; Eosinophils # (A) 0.1 k/uL (0-0.7); Eosinophils % (A) 1 %; HCT 37.4 % (39.0-53.0); HGB 12.3 gm/dL (13.0-17.5); Lymphocytes # (A) 1.1 k/uL (1.0-4.8); Lymphocytes % (A) 14 %; MCH 30.5 pg (25.0-35.0); MCHC 32.9 g/dL (31.0-37.0); MCV 92.5 fL (80.0-100.0); Mean Platelet Volume 8.3; Monocytes # (A) 0.4 k/uL (0-1.0); Monocytes % (A) 5 %; Neutrophils # (A) 5.9 k/uL (1.3-7.7); Neutrophils % (A) 78 %; Platelet Count 155 k/uL (150-450); RBC 4.04 m/uL (4.30-5.90); RDW 13.2 % (11.5-15.5); WBC 7.5 k/uL (3.8-10.6)
[2018-01-08 07:13] LABS: Potassium 4.9 mmol/L (3.5-5.1)
[2018-01-08] MEDS: CHOLECALCIFEROL 1,000 UNIT TAB PO SCH (08:26)
[2018-01-08] MEDS: LISINOPRIL 5 MG TAB PO SCH (08:26)
[2018-01-08] MEDS: ATORVASTATIN 40 MG TAB PO SCH (08:26)
[2018-01-08] MEDS: CITALOPRAM HYDROBROMIDE 20 MG TAB PO SCH (08:26)
[2018-01-08] MEDS ORDERED: CLOPIDOGREL 75 MG TAB PO SCH (08:30)
[2018-01-08] MEDS ORDERED: ASPIRIN 81 MG PO SCH (09:00)
[2018-01-08 09:01] VITALS: RESP 20
--- NOTE | 2018-01-08 10:24 | PN ---
PROGRESS NOTE Mr. Ramirez is an 82-year-old male who presented with symptoms of chest pain, underwent cardiac catheterization, was found to have tight stenosis in the LAD, underwent stenting of that vessel. He is doing well this morning. He denies any chest pain. No dizziness. No palpitation. He is ambulating without difficulty. He continues to be on aspirin once a day, Plavix 75 mg daily, Lipitor 40 mg daily, glipizide, lisinopril 5 mg daily and . PHYSICAL EXAMINATION: Blood pressure 107/60 with a heart rate in the 60s. LUNGS: Clear. Heart irregularly irregular S1, S2. No S3. No rub. ABDOMEN: Soft, nontender. Right groin no hematoma. EKG revealed atrial fibrillation with paced rhythm. LAB DATA: BUN and creatinine 21 and 1. Hemoglobin of 12.3. IMPRESSION: 1. Status post stenting of the left anterior descending coronary artery. 2. Persistent atrial fibrillation with pacemaker. 3. Hypertension. 4. Hyperlipidemia. 5. Diabetes mellitus. RECOMMENDATIONS: Patient will be discharged home today. We will resume his Eliquis. I would recommend continue the aspirin for 4 weeks and then stop the aspirin. Continue Eliquis and Plavix. He will resume his metformin in 48 hours and follow up as an outpatient with Dr. Galo. MMODL / IJN: [id number] /
[2018-01-08 11:32] VITALS: BP 97/60; PULSE 62; TEMP 97.3
[2018-01-08 11:42] LABS: Glucose,Whole Blood 73 mg/dL (75-99)
--- NOTE | 2018-01-08 21:06 | DS ---
DISCHARGE SUMMARY DATE OF SERVICE: 01/09/2008 I am covering for Dr. Ruby. FINAL DIAGNOSES: 1. Coronary artery disease, status post cardiac catheterization/left anterior descending coronary artery stenting. 2. History of recent pacemaker implantation. 3. History of coronary artery disease. 4. Diabetes type 2. 5. Hypertension. 6. History of myocardial infarction. 7. History of depression. DISCHARGE DISPOSITION: The patient is being discharged in stable condition with guarded prognosis. HISTORY OF PRESENT ILLNESS: This 82-year-old gentleman with a past medical history of multiple medical problems as mentioned earlier, being followed by Dr. Ruby in the outpatient setting was admitted with chest pain. The patient had myocardial infarction ruled out. The patient underwent cardiac catheterization and LAD stenting by Cardiology. Patient improved significantly. Patient will be discharged in stable condition with guarded prognosis with the following advice and medications: DISCHARGE ADVICE AND MEDICATIONS: 1. Diet is cardiac diet. 2. Activity limited until followup. 3. Follow up with Dr. Jw Ruby. 4. Follow with the paint maker as advised. MEDICATIONS: Medications will be as follows: 1. Vitamin D 3000 daily. 2. Celexa 40 mg p.o. daily. 3. Metformin 500 mg p.o. daily per protocol, follow for protocol. 4. Eliquis 5 mg p.o. b.i.d. 5. Aspirin 81 mg p.o. daily. 6. Lipitor 40 mg p.o. daily. 7. Plavix 75 mg p.o. daily. 8. Zestril 5 mg p.o. daily. 9. Nitro 0.4 mg sublingual p.r.n. Once again, the patient is being discharged in stable condition with guarded prognosis. MMODL / IJN: [id number] /
== END 2018-01-08 12:33 | disposition home or self-care (01) | DRG 247 ==
LOC: EC 12:35 → INTOOBSV 14:42 → OBSVTOIN 14:42 → UNDOADMIN 14:42 → 3OBS 14:42 → 3SUR 01-06 18:52 → 3OBS 01-06 18:52 → 3SUR 01-06 18:59 → 6SEL 01-07 08:22 → UNDODISIN 01-08 12:33
PROVIDERS: ADMIT Family Medicine; ATTEND Family Medicine
PROC: B2111ZZ Fluoroscopy of Multiple Coronary Arteries using Low Osmolar Contrast (ICD-10-PCS; principal; 2018-01-07 07:30)
PROC: 4A023N7 Measurement of Cardiac Sampling and Pressure, Left Heart, Percutaneous Approach (ICD-10-PCS; principal; 2018-01-07 07:30)
PROC: 027034Z Dilation of Coronary Artery, One Artery with Drug-eluting Intraluminal Device, Percutaneous Approach (ICD-10-PCS; 2018-01-07 07:30)
DX: I25.110 Atherosclerotic heart disease of native coronary artery with unstable angina pectoris (principal); F33.9 Major depressive disorder, recurrent, unspecified; T82.855A Stenosis of coronary artery stent, initial encounter; E11.9 Type 2 diabetes mellitus without complications; E78.5 Hyperlipidemia, unspecified; I10 Essential (primary) hypertension; I25.2 Old myocardial infarction; I45.4 Nonspecific intraventricular block; I48.2 Chronic atrial fibrillation; Z79.01 Long term (current) use of anticoagulants; Z79.02 Long term (current) use of antithrombotics/antiplatelets; Z79.82 Long term (current) use of aspirin; Z79.84 Long term (current) use of oral hypoglycemic drugs; Z79.899 Other long term (current) drug therapy; Z80.9 Family history of malignant neoplasm, unspecified; Z87.891 Personal history of nicotine dependence; Z95.0 Presence of cardiac pacemaker; Z98.42 Cataract extraction status, left eye; Z96.1 Presence of intraocular lens; I25.84 Coronary atherosclerosis due to calcified coronary lesion
CPT/HCPCS: 36415; 71046; 80048; 80053; 80061; 82550; 82553; 83036; 83735; 83880; 84484; 85025; 85347; 85379; 85610; 85730; 93005; 93306; 93458; 99285

== ENCOUNTER 2018-01-27 12:28 | Observation (INO) | payer MEDICARE ==
--- NOTE | 2018-01-27 13:18 | XR ---
EXAMINATION TYPE: XR chest 2V DATE OF EXAM: 01/27/2018 COMPARISON: 01/05/2018 TECHNIQUE: PA and lateral views submitted. HISTORY: Difficulty breathing FINDINGS: The lungs are clear and there is no pneumothorax, pleural effusion, or focal pneumonia. Cardiac dev ice noted. Heart size stable. Atherosclerotic change aorta. Diffuse osteopenia and arthropathy of the shoulders. No overt failure. Hypertrophic and degenerative change of the spine. IMPRESSION: 1. No acute process.
--- NOTE | 2018-01-27 13:19 | ED ---
General Adult HPI - General Chief complaint: Shortness of Breath Stated complaint: ADDISON Time Seen by Provider: 01/27/18 12:48 Source: patient, RN notes reviewed, old records reviewed Mode of arrival: wheelchair Limitations: no limitations - History of Present Illness Initial comments: This is an 83-year-old male to the ER for evaluation. This male presents today for evaluation regarding chest pain or shortness of breath. Patient is calm. Medical recent medical history including heart catheterization stent placement. Patient coming in the ER for evaluation of continued fatigue weakness and shortness of breath. Patient states he was a little is activity causes of shortness of breath. He has history of pacemaker and again history of recent stent placement. No fevers no cough or congestion recent travel history no known sick contacts - Related Data Home Medications Medication Instructions Recorded Confirmed Citalopram Hydrobromide [CeleXA] 40 mg PO DAILY 03/14/16 01/27/18 Cholecalciferol [Vitamin D3] 2,000 unit PO DAILY 07/06/17 01/27/18 metFORMIN HCL [Glucophage] 500 mg PO DAILY 07/06/17 01/27/18 Calcium Carbonate [Calcium] 600 mg PO DAILY 01/27/18 01/27/18 Clopidogrel [Plavix] 75 mg PO BID 01/27/18 01/27/18 Glucosamine Sulfate 500 mg PO DAILY 01/27/18 01/27/18 Naproxen Sodium [Aleve] 440 mg PO Q12HR PRN 01/27/18 01/27/18 Previous Rx's Medication Instructions Recorded Apixaban [Eliquis] 5 mg PO BID #0 01/08/18 Aspirin 81 mg PO DAILY #0 01/08/18 Atorvastatin [Lipitor] 40 mg PO DAILY #90 tab 01/08/18 Lisinopril [Zestril] 5 mg PO DAILY #90 tab 01/08/18 Nitroglycerin Sl Tabs [Nitrostat] 0.4 mg SUBLINGUAL Q5M PRN #25 tab 01/08/18 Allergies Allergy/AdvReac Type Severity Reaction Status Date / Time No Known Allergies Allergy Verified 01/27/18 12:40 Review of Systems ROS Statement: Those systems with pertinent positive or pertinent negative responses have been documented in the HPI. ROS Other: All systems not noted in ROS Statement are negative. Past Medical History Past Medical History: Coronary Artery Disease (CAD), Diabetes Mellitus, Eye Disorder, Hypertension, Myocardial Infarction ([place]) Additional Past Medical History / Comment(s): See Dr Galo's H&P. past cataracts, vertigo/balance issues. 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 Last Myocardial Infarction Date:: 2010 History of Any Multi-Drug Resistant Organisms: None Reported Past Surgical History: Heart Catheterization With Stent, Orthopedic Surgery, Pacemaker Additional Past Surgical History / Comment(s): lt eye lens implant, laser eye sx rt eye,rt shoulder rotator cuff repair Past Anesthesia/Blood Transfusion Reactions: Motion Sickness Date of Last Stent Placement:: 2010 Type of Cardiac Device: Permanent Pacemaker Device Placement Date:: 2017 Past Psychological History: Depression Smoking Status: Former smoker Past Alcohol Use History: None Reported Past Drug Use History: None Reported - Past Family History Father Family Medical History: Cancer Mother Family Medical History: Cancer Brother(s) Family Medical History: Cancer Sister(s) Family Medical History: Cancer General Exam Limitations: no limitations General appearance: alert, anxious, in distress Head exam: Present: atraumatic, normocephalic, normal inspection Eye exam: Present: normal appearance, PERRL, EOMI. Absent: scleral icterus, conjunctival injection, periorbital swelling ENT exam: Present: normal exam, mucous membranes moist Neck exam: Present: normal inspection. Absent: tenderness, meningismus, lymphadenopathy Respiratory exam: Present: respiratory distress, accessory muscle use, decreased breath sounds, prolonged expiratory. Absent: wheezes, rales, rhonchi , stridor Cardiovascular Exam: Present: regular rate, normal rhythm, normal heart sounds. Absent: systolic murmur, diastolic murmur, rubs, gallop, clicks GI/Abdominal exam: Present: soft, normal bowel sounds. Absent: distended, tenderness, guarding, rebound, rigid Extremities exam: Present: normal inspection, full ROM, normal capillary refill. Absent: tenderness, pedal edema, joint swelling, calf tenderness Back exam: Present: normal inspection Neurological exam: Present: alert, oriented X3, CN II-XII intact Psychiatric exam: Present: normal affect, normal mood Skin exam: Present: warm, dry, intact, normal color. Absent: rash Course Vital Signs 01/27/18 01/27/18 01/27/18 12:38 13:27 14:49 Temperature 97.6 F Pulse Rate 62 61 59 L Respiratory 32 H 18 18 Rate Blood Pressure 100/65 104/73 120/75 O2 Sat by Pulse 100 100 100 Oximetry - Reevaluation(s) Reevaluation #1: 01/27/18 15:09 Medical record including prior heart catheterization is reviewed Reevaluation #2: 01/27/18 15:09 Patient has no significant chest pain currently EKG Findings - EKG Comments: EKG Findings:: EKG shows paced rhythm rate of 60, QRS 162, QTc 508 Medical Decision Making - Medical Decision Making 83 male the ER for evaluation. Patient resents today for evaluation regarding chest pain. Shortness of breath. Patient has worsening shortness of breath since heart surgery. Patient be admitted for cardiac observation - Lab Data Result diagrams: 01/27/18 13:07 01/27/18 13:07 Lab Results 01/27/18 01/27/18 01/27/18 Range/Units 13:07 13:07 13:07 WBC 6.3 (3.8-10.6) k/uL RBC 4.24 L (4.30-5.90) m/uL Hgb 13.2 (13.0-17.5) gm/dL Hct 37.7 L (39.0-53.0) % MCV 89.0 (80.0-100.0) fL MCH 31.1 (25.0-35.0) pg MCHC 35.0 (31.0-37.0) g/dL RDW 13.1 (11.5-15.5) % Plt Count 185 (150-450) k/uL Neutrophils % 69 % Lymphocytes % 22 % Monocytes % 5 % Eosinophils % 3 % Basophils % 0 % Neutrophils # 4.3 (1.3-7.7) k/uL Lymphocytes # 1.4 (1.0-4.8) k/uL Monocytes # 0.3 (0-1.0) k/uL Eosinophils # 0.2 (0-0.7) k/uL Basophils # 0.0 (0-0.2) k/uL PT (9.0-12.0) sec INR (<1.2) APTT (22.0-30.0) sec D-Dimer (<0.60) mg/L FEU Sodium 137 (137-145) mmol/L Potassium 4.8 (3.5-5.1) mmol/L Chloride 107 (98-107) mmol/L Carbon Dioxide 20 L (22-30) mmol/L Anion Gap 10 mmol/L BUN 25 H (9-20) mg/dL Creatinine 1.00 (0.66-1.25) mg/dL Est GFR (CKD-EPI)AfAm 81 (>60 ml/min/1.73 sqM) Est GFR (CKD-EPI)NonAf 70 (>60 ml/min/1.73 sqM) Glucose 97 (74-99) mg/dL Calcium 9.4 (8.4-10.2) mg/dL Magnesium 1.6 (1.6-2.3) mg/dL Total Bilirubin 1.1 (0.2-1.3) mg/dL AST 19 (17-59) U/L ALT 26 (21-72) U/L Alkaline Phosphatase 82 (38-126) U/L Total Creatine Kinase 46 L (55-170) U/L CK-MB (CK-2) 0.6 (0.0-2.4) ng/mL CK-MB (CK-2) Rel Index 1.3 Troponin I <0.012 (0.000-0.034) ng/mL NT-Pro-B Natriuret Pep pg/mL Total Protein 6.7 (6.3-8.2) g/dL Albumin 3.9 (3.5-5.0) g/dL 01/27/18 01/27/18 Range/Units 13:07 13:07 WBC (3.8-10.6) k/uL RBC (4.30-5.90) m/uL Hgb (13.0-17.5) gm/dL Hct (39.0-53.0) % MCV (80.0-100.0) fL MCH (25.0-35.0) pg MCHC (31.0-37.0) g/dL RDW (11.5-15.5) % Plt Count (150-450) k/uL Neutrophils % % Lymphocytes % % Monocytes % % Eosinophils % % Basophils % % Neutrophils # (1.3-7.7) k/uL Lymphocytes # (1.0-4.8) k/uL Monocytes # (0-1.0) k/uL Eosinophils # (0-0.7) k/uL Basophils # (0-0.2) k/uL PT 10.1 (9.0-12.0) sec INR 1.0 (<1.2) APTT 24.0 (22.0-30.0) sec D-Dimer 0.47 (<0.60) mg/L FEU Sodium (137-145) mmol/L Potassium (3.5-5.1) mmol/L Chloride (98-107) mmol/L Carbon Dioxide (22-30) mmol/L Anion Gap mmol/L BUN (9-20) mg/dL Creatinine (0.66-1.25) mg/dL Est GFR (CKD-EPI)AfAm (>60 ml/min/1.73 sqM) Est GFR (CKD-EPI)NonAf (>60 ml/min/1.73 sqM) Glucose (74-99) mg/dL Calcium (8.4-10.2) mg/dL Magnesium (1.6-2.3) mg/dL Total Bilirubin (0.2-1.3) mg/dL AST (17-59) U/L ALT (21-72) U/L Alkaline Phosphatase (38-126) U/L Total Creatine Kinase (55-170) U/L CK-MB (CK-2) (0.0-2.4) ng/mL CK-MB (CK-2) Rel Index Troponin I (0.000-0.034) ng/mL NT-Pro-B Natriuret Pep 1340 pg/mL Total Protein (6.3-8.2) g/dL Albumin (3.5-5.0) g/dL - Radiology Data Radiology results: report reviewed (Chest x-rays negative for acute disease), image reviewed Disposition Clinical Impression: Atrial fibrillation, Symptomatic bradycardia, Dyspnea Disposition: ADMITTED IP TO THIS HOSP Condition: Undetermined Is patient prescribed a controlled substance at d/c from ED?: No Referrals: Jw Ruby MD [Primary Care Provider] - 1-2 days
[2018-01-27 13:21] LABS: Basophils % (A) 0 %; Eosinophils # (A) 0.2 k/uL (0-0.7); Eosinophils % (A) 3 %; HCT 37.7 % (39.0-53.0); HGB 13.2 gm/dL (13.0-17.5); Lymphocytes # (A) 1.4 k/uL (1.0-4.8); Lymphocytes % (A) 22 %; MCH 31.1 pg (25.0-35.0); Mean Platelet Volume 6.9; Monocytes # (A) 0.3 k/uL (0-1.0); Monocytes % (A) 5 %; Neutrophils # (A) 4.3 k/uL (1.3-7.7); Neutrophils % (A) 69 %; Platelet Count 185 k/uL (150-450); RBC 4.24 m/uL (4.30-5.90); RDW 13.1 % (11.5-15.5); WBC 6.3 k/uL (3.8-10.6)
[2018-01-27 13:30] LABS: D-Dimer 0.47 mg/L FEU (<0.60); Prothrombin Time 10.1 sec (9.0-12.0)
[2018-01-27 13:33] LABS: Albumin 3.9 g/dL (3.5-5.0); Calcium 9.4 mg/dL (8.4-10.2); Magnesium 1.6 mg/dL (1.6-2.3); Potassium 4.8 mmol/L (3.5-5.1); Total Bilirubin 1.1 mg/dL (0.2-1.3); Total Protein 6.7 g/dL (6.3-8.2)
[2018-01-27 13:41] LABS: Creatine Kinase 46 U/L (55-170)
[2018-01-27 13:54] LABS: Creatine Kinase MB 0.6 ng/mL (0.0-2.4); Troponin I <0.012 ng/mL (0.000-0.034)
[2018-01-27] MEDS ORDERED: NITROGLYCERIN SL TABS 0.4 MG TAB SUBLINGUAL PRN (15:05)
[2018-01-27 17:31] LABS: Glucose,Whole Blood 127 mg/dL (75-99)
[2018-01-27] MEDS: NITROGLYCERIN OINT 1 INCH/GM PACKET TOPICAL SCH (18:26)
[2018-01-27 19:56] LABS: Creatine Kinase 46 U/L (55-170)
[2018-01-27 20:10] LABS: Creatine Kinase MB 0.7 ng/mL (0.0-2.4); Troponin I <0.012 ng/mL (0.000-0.034)
[2018-01-27 20:36] LABS: Glucose,Whole Blood 106 mg/dL (75-99)
[2018-01-28] MEDS ORDERED: NITROGLYCERIN SL TABS 0.4 MG TAB SUBLINGUAL PRN (00:30)
[2018-01-28] MEDS ORDERED: NAPROXEN 250 MG TAB PO PRN (00:30)
--- NOTE | 2018-01-28 00:34 | P.HPIM ---
History of Present Illness H&P Date: 01/27/18 Chief Complaint: Generalized weakness and shortness of breath and chest pain Patient is a 83-year-old male with a known history of coronary artery disease status post cardiac Catheterization and stent placement about 3 weeks ago, diabetes type 2, hypertension, atrial fibrillation on anticoagulation with eliquis came to ER with complaints of chest pain and shortness of breath.. Patient does have recent cardiac catheterization. Patient states that since he was discharged from the hospital, has been having shortness of breath and tired and not able to do anything at home. 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 Patient does have exertional shortness of breath. No orthopnea or PND otherwise. Patient does have a history of pacemaker placement due to bradycardia. Otherwise no cough or sputum production. No fever no chills. No sick contacts at home. No headache or dizziness or lightheadedness. EKG showed ventricular pacer rhythm Chest x-ray showed no acute cardio pulmonary process Troponin 1 negative Review of Systems Constitutional: Patient denies any fever or chills . Patient does have generalized weakness fatigue and tired. Abdomen: Patient denied nausea vomiting and diarrhea and abdominal pain. Cardiovascular: Patient denies any chest pain or short of breath no palpitations. Respiratory: patient denied any cough is from production. No shortness of breath Neurologic: Patient denied any numbness or tingling headache. Musculoskeletal: Patient denies any complaints of joint swelling or deformity. Skin: Negative Psychiatric: Negative Endocrine: No heat or cold intolerance. No recent weight gain. Genitourinary: No dysuria or hematuria. All other 14 point ROS negative except the above Past Medical History Past Medical History: Coronary Artery Disease (CAD), Diabetes Mellitus, Eye Disorder, Hypertension, Myocardial Infarction ([place]) Additional Past Medical History / Comment(s): See Dr Galo's H&P. past cataracts, vertigo/balance issues. 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 Last Myocardial Infarction Date:: 2010 History of Any Multi-Drug Resistant Organisms: None Reported Past Surgical History: Heart Catheterization With Stent, Orthopedic Surgery, Pacemaker Additional Past Surgical History / Comment(s): lt eye lens implant, laser eye sx rt eye,rt shoulder rotator cuff repair Past Anesthesia/Blood Transfusion Reactions: Motion Sickness Date of Last Stent Placement:: 2010 Type of Cardiac Device: Permanent Pacemaker Device Placement Date:: 2017 Past Psychological History: Depression Smoking Status: Former smoker Past Alcohol Use History: None Reported Past Drug Use History: None Reported - Past Family History Father Family Medical History: Cancer Mother Family Medical History: Cancer Brother(s) Family Medical History: Cancer Sister(s) Family Medical History: Cancer Medications and Allergies Home Medications Medication Instructions Recorded Confirmed Type Citalopram Hydrobromide [CeleXA] 40 mg PO DAILY 03/14/16 01/27/18 History Cholecalciferol [Vitamin D3] 2,000 unit PO DAILY 07/06/17 01/27/18 History metFORMIN HCL [Glucophage] 500 mg PO DAILY 07/06/17 01/27/18 History Apixaban [Eliquis] 5 mg PO BID #0 01/08/18 01/27/18 Rx Aspirin 81 mg PO DAILY #0 01/08/18 01/27/18 Rx Atorvastatin [Lipitor] 40 mg PO DAILY #90 tab 01/08/18 01/27/18 Rx Lisinopril [Zestril] 5 mg PO DAILY #90 tab 01/08/18 01/27/18 Rx Nitroglycerin Sl Tabs [Nitrostat] 0.4 mg SUBLINGUAL Q5M PRN #25 tab 01/08/18 Rx Calcium Carbonate [Calcium] 600 mg PO DAILY 01/27/18 01/27/18 History Clopidogrel [Plavix] 75 mg PO BID 01/27/18 01/27/18 History Glucosamine Sulfate 500 mg PO DAILY 01/27/18 01/27/18 History Naproxen Sodium [Aleve] 440 mg PO Q12HR PRN 01/27/18 01/27/18 History Allergies Allergy/AdvReac Type Severity Reaction Status Date / Time No Known Allergies Allergy Verified 01/27/18 12:40 Physical Exam Vitals: Vital Signs Temp Pulse Pulse Resp BP BP Pulse Ox 01/27/18 16:16 97.6 F 60 18 123/79 100 01/27/18 15:34 98.8 F 61 18 117/76 100 01/27/18 14:49 59 L 18 120/75 100 01/27/18 13:27 61 18 104/73 100 01/27/18 12:38 97.6 F 62 32 H 100/65 100 Intake and Output 01/27/18 01/27/18 01/27/18 06:59 14:59 22:59 Other: Weight 91.626 kg 91 kg PHYSICAL EXAMINATION: Patient is lying in the bed comfortably, no acute distress, awake alert and oriented.. HEENT: Normocephalic. Neck is supple. Pupils reactive. Nostrils clear. Oral cavity is moist. Ears reveal no drainage. Neck reveals no JVD, carotid bruits, or thyromegaly. CHEST EXAMINATION: Trachea is central. Symmetrical expansion. Lung muñoz clear to auscultation and percussion. CARDIAC: Normal S1, S2 with no gallops. No murmurs ABDOMEN: Soft. Bowel sounds normal. No organomegaly. No abdominal bruits. Extremities: reveal no edema. No clubbing or cyanosis Neurologically awake, alert, oriented x3 with well-coordinated movements. No focal deficits noted Skin: No rash or skin lesions. Psychiatric: Coperative. Nonsuicidal Musculoskeletal: No joint swelling or deformity. Normal range of motion. Results CBC & Chem 7: 01/27/18 13:07 01/27/18 13:07 Labs: Abnormal Lab Results - Last 24 Hours (Table) 01/27/18 01/27/18 01/27/18 Range/Units 13:07 13:07 13:07 RBC 4.24 L (4.30-5.90) m/uL Hct 37.7 L (39.0-53.0) % Carbon Dioxide 20 L (22-30) mmol/L BUN 25 H (9-20) mg/dL Total Creatine Kinase 46 L (55-170) U/L Assessment and Plan Assessment: Atypical chest pain with recent history of cardiac Catheterization stent placement Coronary artery disease with history of stent placement 3 weeks ago Diabetes type 2. [id number] Hypertension. Currently patient is hypotensive History of [place] Atrial fibrillation on anticoagulation Bradycardia status post pacemaker placement Depression Previous history of smoking Plan: Patient will be continued on telemetry monitoring. Initial EKG and troponins negative. Continue with aspirin Plavix statins and follow up closely. Cardiology was consulted and further recommendations based on the clinical course. Time with Patient: Greater than 30
[2018-01-28] MEDS: NITROGLYCERIN OINT 1 INCH/GM PACKET TOPICAL SCH ×5 (01:18→19:22)
[2018-01-28 02:07] LABS: Creatine Kinase 60 U/L (55-170)
[2018-01-28 02:20] LABS: Creatine Kinase MB 0.9 ng/mL (0.0-2.4); Troponin I <0.012 ng/mL (0.000-0.034)
[2018-01-28 02:48] LABS: Cholesterol 98 mg/dL (<200); HDL Cholesterol 42 mg/dL (40-60); LDL Cholesterol,Calculated 41 mg/dL (0-99); Triglycerides 75 mg/dL (<150)
[2018-01-28 07:47] LABS: Glucose,Whole Blood 107 mg/dL (75-99)
[2018-01-28] MEDS ORDERED: ASPIRIN 325 MG TAB PO SCH (09:00)
[2018-01-28] MEDS ORDERED: ENOXAPARIN 40 MG/0.4 ML SYRINGE SQ SCH (09:00)
[2018-01-28] MEDS ORDERED: APIXABAN 5 MG TAB PO SCH (09:00)
--- NOTE | 2018-01-28 09:05 | P.CRDCN ---
History of Present Illness Consult date: 01/28/18 History of present illness: This is a 83-year-old gentleman with history of ischemic heart disease status post stent placement of the mid LAD for in-stent stenosis done about 3 weeks ago. Patient presented at the time chest pain and shortness of breath. Patient comes back now with complaints of exertional shortness of breath. Activities like walking to the mailbox, We'll make him short of breath and also stress and make him short of breath. No orthopnea or paroxysmal nocturnal dyspnea. No pedal swelling. EKG did not reveal any acute changes. Cardiac enzymes are negative. The etiology of his symptoms are not clear. I'm going to get an echocardiogram and pulmonary evaluation. If no specific etiology is found, we'll may end up having cardiac catheterization to rule out any in-stent stenosis. Review of Systems REVIEW OF SYSTEMS: CONSTITUTIONAL:. Patient is doing well. No complaints of fever or chills EYES: Denies diplopia, blurring of vision EARS, NOSE, MOUTH, THROAT: Denies headaches, denies sore throat. CARDIOVASCULAR: As per HPI RESPIRATORY: Denies shortness of breath, denies cough. GASTROINTESTINAL: Denies change in appetite, denies abdominal pain, denies diarrhea GENITOURINARY: Denies hematuria, denies infections. MUSKULOSKELETAL: Denies pain, denies swelling. Denies any cramps or claudication INTEGUMENTARY: Denies rash, denies eczema. NEUROLOGICAL: Denies focal weakness, or visual disturbance. Denies any dizziness or syncope PSYCHIATRIC: Denies anxiety, denies depression. HEMATOLOGIC/LYMPHATIC: Denies any bleeding, denies enlarged lymph nodes. Past Medical History Past Medical History: Coronary Artery Disease (CAD), Diabetes Mellitus, Eye Disorder, Hypertension, Myocardial Infarction ([place]) Additional Past Medical History / Comment(s): See Dr Galo's H&P. past cataracts, vertigo/balance issues. 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 Last Myocardial Infarction Date:: 2010 History of Any Multi-Drug Resistant Organisms: None Reported Past Surgical History: Heart Catheterization With Stent, Orthopedic Surgery, Pacemaker Additional Past Surgical History / Comment(s): lt eye lens implant, laser eye sx rt eye,rt shoulder rotator cuff repair Past Anesthesia/Blood Transfusion Reactions: Motion Sickness Date of Last Stent Placement:: 2010 Type of Cardiac Device: Permanent Pacemaker Device Placement Date:: 2017 Past Psychological History: Depression Smoking Status: Former smoker Past Alcohol Use History: None Reported Past Drug Use History: None Reported - Past Family History Father Family Medical History: Cancer Mother Family Medical History: Cancer Brother(s) Family Medical History: Cancer Sister(s) Family Medical History: Cancer Medications and Allergies Home Medications Medication Instructions Recorded Confirmed Type Citalopram Hydrobromide [CeleXA] 40 mg PO DAILY 03/14/16 01/27/18 History Cholecalciferol [Vitamin D3] 2,000 unit PO DAILY 07/06/17 01/27/18 History metFORMIN HCL [Glucophage] 500 mg PO DAILY 07/06/17 01/27/18 History Apixaban [Eliquis] 5 mg PO BID #0 01/08/18 01/27/18 Rx Aspirin 81 mg PO DAILY #0 01/08/18 01/27/18 Rx Atorvastatin [Lipitor] 40 mg PO DAILY #90 tab 01/08/18 01/27/18 Rx Lisinopril [Zestril] 5 mg PO DAILY #90 tab 01/08/18 01/27/18 Rx Nitroglycerin Sl Tabs [Nitrostat] 0.4 mg SUBLINGUAL Q5M PRN #25 tab 01/08/18 Rx Calcium Carbonate [Calcium] 600 mg PO DAILY 01/27/18 01/27/18 History Clopidogrel [Plavix] 75 mg PO BID 01/27/18 01/27/18 History Glucosamine Sulfate 500 mg PO DAILY 01/27/18 01/27/18 History Naproxen Sodium [Aleve] 440 mg PO Q12HR PRN 01/27/18 01/27/18 History Allergies Allergy/AdvReac Type Severity Reaction Status Date / Time No Known Allergies Allergy Verified 01/27/18 12:40 Physical Exam Vitals: Vital Signs Temp Pulse Pulse Resp BP BP Pulse Ox 01/28/18 07:42 98.1 F 56 L 18 94/62 99 01/28/18 04:00 98.3 F 57 L 18 94/60 97 01/28/18 00:00 98.7 F 60 18 101/67 98 01/27/18 20:00 18 01/27/18 19:52 98.1 F 60 18 106/66 98 01/27/18 16:52 18 01/27/18 16:16 97.6 F 60 18 123/79 100 01/27/18 15:34 98.8 F 61 18 117/76 100 01/27/18 14:49 59 L 18 120/75 100 01/27/18 13:27 61 18 104/73 100 01/27/18 12:38 97.6 F 62 32 H 100/65 100 Intake and Output 01/27/18 01/28/18 01/28/18 22:59 06:59 14:59 Intake Total 420 Balance 420 Intake: Oral 420 Other: Voiding Method Toilet Toilet # Voids 1 Weight 91 kg GENERAL EXAM: Patient is alert and oriented and doesn't appear to be in any acute distress HEENT: Normocephalic. Normal reaction of pupils, equal size, normal range of extraocular motion. No erythema or exudates in the throat. NECK: No masses, no nuchal rigidity. CHEST: No chest wall deformity. LUNGS: Equal air entry with no crackles or wheeze. HEART: S1 and S2 normal with no audible mumurs or gallops. Regular rhythm, femorals equal on both sides.. ABDOMEN: No hepatosplenomegaly, normal bowel sounds, no guarding or rigidity. SKIN: No rashes CENTRAL NERVOUS SYSTEM: No focal deficits. EXTREMITIES: No cyanosis, clubbing or edema. Results 01/27/18 13:07 01/27/18 13:07 Cardiac Enzymes 01/27/18 01/27/18 01/27/18 Range/Units 13:07 13:07 19:09 AST 19 (17-59) U/L CK-MB (CK-2) 0.6 0.7 (0.0-2.4) ng/mL Troponin I <0.012 <0.012 (0.000-0.034) ng/mL 01/28/18 Range/Units 01:12 AST (17-59) U/L CK-MB (CK-2) 0.9 (0.0-2.4) ng/mL Troponin I <0.012 (0.000-0.034) ng/mL Coagulation 01/27/18 Range/Units 13:07 PT 10.1 (9.0-12.0) sec APTT 24.0 (22.0-30.0) sec Lipids 01/27/18 Range/Units 13:07 Triglycerides 75 (<150) mg/dL Cholesterol 98 (<200) mg/dL HDL Cholesterol 42 (40-60) mg/dL CBC 01/27/18 Range/Units 13:07 WBC 6.3 (3.8-10.6) k/uL RBC 4.24 L (4.30-5.90) m/uL Hgb 13.2 (13.0-17.5) gm/dL Hct 37.7 L (39.0-53.0) % Plt Count 185 (150-450) k/uL Comprehensive Metabolic Panel 01/27/18 Range/Units 13:07 Sodium 137 (137-145) mmol/L Potassium 4.8 (3.5-5.1) mmol/L Chloride 107 (98-107) mmol/L Carbon Dioxide 20 L (22-30) mmol/L BUN 25 H (9-20) mg/dL Creatinine 1.00 (0.66-1.25) mg/dL Glucose 97 (74-99) mg/dL Calcium 9.4 (8.4-10.2) mg/dL AST 19 (17-59) U/L ALT 26 (21-72) U/L Alkaline Phosphatase 82 (38-126) U/L Total Protein 6.7 (6.3-8.2) g/dL Albumin 3.9 (3.5-5.0) g/dL Current Medications Generic Name Dose Route Start Last Admin Trade Name Freq PRN Reason Stop Dose Admin Apixaban 5 mg 01/28/18 09:00 Eliquis PO BID [facility] Aspirin 81 mg 01/28/18 09:00 Aspirin PO DAILY [facility] Atorvastatin Calcium 40 mg 01/28/18 09:00 Lipitor PO DAILY [facility] Calcium Carbonate/Glycine 500 mg 01/28/18 12:00 Tums PO DAILY@1200 [facility] Cholecalciferol 2,000 unit 01/28/18 09:00 Vitamin D3 PO DAILY [facility] Citalopram Hydrobromide 40 mg 01/28/18 09:00 Celexa PO DAILY [facility] Clopidogrel Bisulfate 75 mg 01/28/18 09:00 Plavix PO BID [facility] Lisinopril 5 mg 01/28/18 09:00 Zestril PO DAILY [facility] Metformin HCl 500 mg 01/28/18 07:30 Glucophage PO W/BRKFST LEIF Naproxen 500 mg 01/28/18 00:30 Naprosyn PO Q12HR PRN Pain Nitroglycerin 1 inch 01/27/18 18:00 01/28/18 07:52 Nitro-Bid Oint TOPICAL Not Given Q6HR [facility] Nitroglycerin 0.4 mg 01/28/18 00:30 Nitrostat SUBLINGUAL Q5M PRN Chest Pain Non-Formulary Medication 500 mg 01/28/18 09:00 Glucosamine Sulfate PO DAILY LE[facility] Intake and Output 01/27/18 01/28/18 01/28/18 22:59 06:59 14:59 Intake Total 420 Balance 420 Intake: Oral 420 Other: Voiding Method Toilet Toilet # Voids 1 Weight 91 kg 01/27/18 13:07 01/27/18 13:07 EKG Interpretations (text) EKG did not show any acute changes Assessment and Plan (1) History of pacemaker Current Visit: Yes Status: Acute Code(s): Z95.0 - PRESENCE OF CARDIAC PACEMAKER SNOMED Code(s): 352625225 (2) Atrial fibrillation Current Visit: Yes Status: Acute Code(s): I48.91 - UNSPECIFIED ATRIAL FIBRILLATION SNOMED Code(s): 36202421 (3) Dyspnea Current Visit: Yes Status: Acute Code(s): R06.00 - DYSPNEA, UNSPECIFIED SNOMED Code(s): 782455095 (4) CAD (coronary artery disease) Current Visit: No Status: Acute Code(s): I25.10 - ATHSCL HEART DISEASE OF [place] CORONARY ARTERY W/O ANG PCTRS SNOMED Code(s): 13308846 Plan: We will hold [employer]. Get an echocardiogram and pulmonary evaluation. Possible cardiac catheterization within next 24-48 hours.
[2018-01-28] MEDS: metFORMIN 500 MG TAB PO SCH (10:40)
[2018-01-28] MEDS: CHOLECALCIFEROL 1,000 UNIT TAB PO SCH (10:44)
[2018-01-28] MEDS: CLOPIDOGREL 75 MG TAB PO SCH (10:44)
[2018-01-28] MEDS: ASPIRIN 81 MG PO SCH (10:45)
[2018-01-28] MEDS: LISINOPRIL 5 MG TAB PO SCH (10:45)
[2018-01-28] MEDS: ATORVASTATIN 40 MG TAB PO SCH (10:45)
[2018-01-28] MEDS: CITALOPRAM HYDROBROMIDE 20 MG TAB PO SCH (10:45)
--- NOTE | 2018-01-28 11:00 | P.CNPUL ---
History of Present Illness Consult date: 01/28/18 Reason for consult: dyspnea Chief complaint: Shortness of breath on exertion History of present illness: Pulmonary consult dated 01/28/2018 83-year-old male who states for the last 3 weeks or so, he's developed shortness of breath on exertion. He does not have shortness of breath at rest. He states that he recently had a cardiac catheterization with stent placement and never since that time, he's been short of breath with exertion. Again he denies any previous history of shortness of breath and denies any history of any lung disease. Specifically he denies emphysema chronic bronchitis asthma or any other pulmonary disease. He's essentially lifelong nonsmoker. Again he states that since he had the stent placement, he's been having any shortness of breath on exertion. He was seen in the emergency room and was known to have atrial fibrillation bradycardia and shortness of breath. He denies any cough wheezing phlegm production. Denies any hemoptysis. He denies any chest pain or pressure. His past medical history includes CAD diabetes hypertension myocardial infarction cataracts or vertigo atrial fibrillation status post pacemaker insertion previous cardiac catheterization with stent placement and some other minor surgical procedures. Review of Systems A 14 point review of system is positive for shortness of breath on exertion. He states that this was his only complaint coming into the emergency department on the . He denies any respiratory complaints including coughing wheezing phlegm production. Denies any chest pain or pressure. He does not get short of breath at rest. Past Medical History Past Medical History: Coronary Artery Disease (CAD), Diabetes Mellitus, Eye Disorder, Hypertension, Myocardial Infarction ([place]) Additional Past Medical History / Comment(s): See Dr Galo's H&P. past cataracts, vertigo/balance issues. 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 Last Myocardial Infarction Date:: 2010 History of Any Multi-Drug Resistant Organisms: None Reported Past Surgical History: Heart Catheterization With Stent, Orthopedic Surgery, Pacemaker Additional Past Surgical History / Comment(s): lt eye lens implant, laser eye sx rt eye,rt shoulder rotator cuff repair Past Anesthesia/Blood Transfusion Reactions: Motion Sickness Date of Last Stent Placement:: 2010 Type of Cardiac Device: Permanent Pacemaker Device Placement Date:: 2017 Past Psychological History: Depression Smoking Status: Former smoker Past Alcohol Use History: None Reported Past Drug Use History: None Reported - Past Family History Father Family Medical History: Cancer Mother Family Medical History: Cancer Brother(s) Family Medical History: Cancer Sister(s) Family Medical History: Cancer Medications and Allergies Home Medications Medication Instructions Recorded Confirmed Type Citalopram Hydrobromide [CeleXA] 40 mg PO DAILY 03/14/16 01/27/18 History Cholecalciferol [Vitamin D3] 2,000 unit PO DAILY 07/06/17 01/27/18 History metFORMIN HCL [Glucophage] 500 mg PO DAILY 07/06/17 01/27/18 History Apixaban [Eliquis] 5 mg PO BID #0 01/08/18 01/27/18 Rx Aspirin 81 mg PO DAILY #0 01/08/18 01/27/18 Rx Atorvastatin [Lipitor] 40 mg PO DAILY #90 tab 01/08/18 01/27/18 Rx Lisinopril [Zestril] 5 mg PO DAILY #90 tab 01/08/18 01/27/18 Rx Nitroglycerin Sl Tabs [Nitrostat] 0.4 mg SUBLINGUAL Q5M PRN #25 tab 01/08/18 Rx Calcium Carbonate [Calcium] 600 mg PO DAILY 01/27/18 01/27/18 History Clopidogrel [Plavix] 75 mg PO DAILY 01/27/18 01/28/18 History Glucosamine Sulfate 500 mg PO DAILY 01/27/18 01/27/18 History Naproxen Sodium [Aleve] 440 mg PO Q12HR PRN 01/27/18 01/27/18 History Allergies Allergy/AdvReac Type Severity Reaction Status Date / Time No Known Allergies Allergy Verified 01/27/18 12:40 Physical Exam Osteopathic Statement: *. No significant issues noted on an osteopathic structural exam other than those noted in the History and Physical/Consult. Vitals: Vital Signs Temp Pulse Pulse Resp BP BP Pulse Ox 01/28/18 07:42 98.1 F 56 L 18 94/62 99 01/28/18 04:00 98.3 F 57 L 18 94/60 97 01/28/18 00:00 98.7 F 60 18 101/67 98 01/27/18 20:00 18 08/17/18 19:52 98.1 F 60 18 106/66 98 01/27/18 16:52 18 01/27/18 16:16 97.6 F 60 18 123/79 100 01/27/18 15:34 98.8 F 61 18 117/76 100 01/27/18 14:49 59 L 18 120/75 100 01/27/18 13:27 61 18 104/73 100 01/27/18 12:38 97.6 F 62 32 H 100/65 100 Intake and Output 01/27/18 01/28/18 01/28/18 22:59 06:59 14:59 Intake Total 420 Balance 420 Intake: Oral 420 Other: Voiding Method Toilet Toilet # Voids 1 Weight 91 kg No acute distress, oriented 3. No supplemental oxygen noted HEENT examination is grossly unremarkable. Mucous membranes are moist. No oral lesions. Neck supple. Full range of motion. No adenopathy thyromegaly or neck vein distention. Cardiovascular examination reveals regular rhythm rate. S1-S2 normal. No S3 or S4. No discernible murmur noted. Lungs reveal clear breath sounds. Her sounds are equal bilaterally. No adventitious lung sounds including wheezes rhonchi or crackles. Abdomen soft bowel sounds are heard. No masses or tenderness. Extremities are intact. No cyanosis clubbing or edema. Skin is without rash or lesion. Neurologic examination is brief but nonfocal. Results - Laboratory Findings CBC and BMP: 01/27/18 13:07 01/27/18 13:07 PT/INR, D-dimer PT 10.1 sec (9.0-12.0) 01/27/18 13:07 INR 1.0 (<1.2) 01/27/18 13:07 D-Dimer 0.47 mg/L FEU (<0.60) 01/27/18 13:07 Abnormal lab findings: Abnormal Labs 01/27/18 01/27/18 01/27/18 13:07 13:07 13:07 RBC 4.24 L Hct 37.7 L Carbon Dioxide 20 L BUN 25 H POC Glucose (mg/dL) Total Creatine Kinase 46 L 01/27/18 01/27/18 01/27/18 17:16 19:09 20:12 RBC Hct Carbon Dioxide BUN POC Glucose (mg/dL) 127 H 106 H Total Creatine Kinase 46 L 01/28/18 07:29 RBC Hct Carbon Dioxide BUN POC Glucose (mg/dL) 107 H Total Creatine Kinase - Diagnostic Findings Chest x-ray: report reviewed (Chest x-ray labs and medications are reviewed), image reviewed Assessment and Plan Assessment: Assessment Dyspnea on exertion of unclear etiology, only present about 3 weeks. The patient does not appear to have intrinsic pulmonary disease. He is a lifelong nonsmoker denies COPD emphysema chronic bronchitis or asthma. History of CAD with previous stent placement History of diabetes mellitus History of cataracts History of hypertension Previous history of myocardial infarction History of atrial fibrillation, status post pacemaker insertion History of vertigo Plan: Plan dated 01/28/2018 The patient does not appear to have intrinsic pulmonary disease. He's only been short of breath on exertion for about 3 weeks. He seems to think that's the insertion of the recent stent have something to do with his dyspnea on exertion. The patient will need outpatient evaluation including a primary function test and/or methacholine challenge test and the pulmonary office. In addition, the patient be scheduled for a CT angiogram to rule out PE. Additional recommendations and suggestions are forthcoming. He should be evaluated for home oxygen prior to discharge. Time with Patient: Greater than 30
[2018-01-28] MEDS: NON-FORMULARY DRUG (Glucosamine Sulfate 500 MG) PO SCH (11:49)
[2018-01-28 12:01] LABS: Glucose,Whole Blood 155 mg/dL (75-99)
--- NOTE | 2018-01-28 12:13 | CT ---
EXAMINATION TYPE: CT angio chest DATE OF EXAM: 01/28/2018 12:04 PM COMPARISON: HISTORY: SOB, Chest pain CT DLP: 444.5 mGycm Automated exposure control for dose reduction was used. CONTRAST: CTA scan of the thorax is performed with IV Contrast, patient injected with 100 mL of Isovue 300, pul monary embolism protocol. . FINDINGS: There is focal bronchiectasis in the anterior portion of the left lower lobe. The lungs are otherwise clear. There is some shotty mediastinal adenopathy. There is no evidence of pulmonary embolus. The aorta is normal in caliber. There is no pleural or pericardial fluid. The heart is not enlarged. Within the abdomen, the gallbladder is been removed. There is evidence of old granulomatous disease i n the spleen. Both adrenal glands are normal. There is a 7.8 mm, partially calcified cyst in the mid polar region of the right kidney. Visualized p ortions of the left kidney are unremarkable. Pancreas is somewhat atrophic. There is hypertrophic spondylosis within the spine. IMPRESSION: 1. THIS EXAMINATION IS NEGATIVE FOR PULMONARY EMBOLUS. 2. FOCAL BRONCHIECTASIS IN THE ANTERIOR ASPECT OF THE LEFT LOWER LOBE. 3. PARTIALLY CALCIFIED 8 MM CYST IN THE MID POLAR REGION OF THE RIGHT KIDNEY.
[2018-01-28] MEDS: CALCIUM CARBONATE 500 MG CHEWABLE PO SCH (13:07)
[2018-01-28 17:09] LABS: Glucose,Whole Blood 124 mg/dL (75-99)
[2018-01-29] MEDS: NITROGLYCERIN OINT 1 INCH/GM PACKET TOPICAL SCH ×3 (05:49→17:25)
[2018-01-29 07:22] LABS: Glucose,Whole Blood 119 mg/dL (75-99)
[2018-01-29] MEDS: metFORMIN 500 MG TAB PO SCH (08:18)
--- NOTE | 2018-01-29 09:24 | ECHOF ---
Referral Reason:Chest pain and cardiomyopathy MEASUREMENTS -------- HEIGHT: 180.3 cm WEIGHT: 90.7 kg BP: 94/62 RVIDd: 3.3 cm (< 3.3) IVSd: 1.2 cm (0.6 - 1.1) LVIDd: 4.9 cm (3.9 - 5.3) LVPWd: 1.1 cm (0.6 - 1.1) IVSs: 1.6 cm LVIDs: 4.2 cm LVPWs: 1.6 cm LAESV Index (A-L): 62.40 ml/m Ao Diam: 3.3 cm (2.0 - 3.7) AV Cusp: 2.0 cm (1.5 - 2.6) LA Diam: 4.5 cm (2.7 - 3.8) MV E Tacos: 0.84 m/s MV DecT: 238 ms MV A Tacos: 0.01 m/s MV E/A Ratio: 102.71 RAP: 5.00 mmHg RVSP: 27.15 mmHg FINDINGS -------- Paced rhythm. This was a technically adequate study. The left ventricular size is normal. There is mild concentric left ventricular hypertrophy. Overa ll left ventricular systolic function is low-normal with, an EF between 50 - 55 %. The right ventricle is mildly enlarged. LA is severely dilated >40 ml/m2 The right atrium is markedly enlarged. Aortic valve is trileaflet and is mildly thickened. Trace to mild aortic regurgitation. There is no evidence of aortic stenosis. The mitral valve leaflets are mildly thickened. [id number] mitral regurgitation is present. Mild tricuspid regurgitation present. Right ventricular systolic pressure is normal at < 35 mmHg. There is no evidence of pulmonary hypertension. The pulmonic valve was not well visualized. The aortic root size is normal. Normal inferior vena cava with normal inspiratory collapse consistent with estimated right atrial pre ssure of 5 mmHg. There is no pericardial effusion. CONCLUSIONS -------- 1. Paced rhythm. 2. This was a technically adequate study. 3. The left ventricular size is normal. 4. There is mild concentric left ventricular hypertrophy. 5. Overall left ventricular systolic function is low-normal with, an EF between 50 - 55 %. 6. The right ventricle is mildly enlarged. 7. LA is severely dilated >40 ml/m2 8. The right atrium is markedly enlarged. 9. Aortic valve is trileaflet and is mildly thickened. 10. Trace to mild aortic regurgitation. 11. The mitral valve leaflets are mildly thickened. 12. [id number]-[id number] mitral regurgitation is present. 13. Mild tricuspid regurgitation present. 14. Right ventricular systolic pressure is normal at < 35 mmHg. 15. There is no evidence of pulmonary hypertension. 16. The pulmonic valve was not well visualized. 17. The aortic root size is normal. 18. There is no pericardial effusion. CORRAL BOSS: Gabriel Apodaca RDCS
[2018-01-29] MEDS: CLOPIDOGREL 75 MG TAB PO SCH (10:00)
[2018-01-29] MEDS: CHOLECALCIFEROL 1,000 UNIT TAB PO SCH (10:00)
[2018-01-29] MEDS: CITALOPRAM HYDROBROMIDE 20 MG TAB PO SCH (10:00)
[2018-01-29] MEDS: LISINOPRIL 5 MG TAB PO SCH (10:00)
[2018-01-29] MEDS ORDERED: ASPIRIN 325 MG TAB PO STA (11:13)
[2018-01-29] MEDS ORDERED: SODIUM CHLORIDE 0.9% 1,000 ML in EMPTY BAG 1 BAG IV ONE (11:13)
[2018-01-29] MEDS ORDERED: ALPRAZolam 0.5 MG TAB PO PRN (11:13)
[2018-01-29] MEDS ORDERED: ALPRAZolam 0.25 MG TAB PO PRN (11:13)
[2018-01-29] MEDS: ATORVASTATIN 40 MG TAB PO SCH (11:30)
[2018-01-29] MEDS: ASPIRIN 81 MG PO SCH (11:31)
[2018-01-29] MEDS: NON-FORMULARY DRUG (Glucosamine Sulfate 500 MG) PO SCH (11:32)
[2018-01-29] MEDS ORDERED: LIDOCAINE 1% INJ 10MG/ML (20 ML MDV) ONE (11:39)
--- NOTE | 2018-01-29 11:51 | P.PN ---
Subjective Progress Note Date: 01/29/18 Principal diagnosis: Dyspnea on exertion Progress note dated 01/29/2018 83-year-old male with complaints of shortness of breath on exertion for about 3 weeks. His shortness of breath seemed to develop occur for the first time right around the time he got a cardiac stent. He's going back to the catheterization laboratory today apparently according to his medical lead. Walking down the hallway makes him short of breath even getting up to use the bathroom makes him short of breath. He appears not to have any intrinsic pulmonary disease. He denies emphysema chronic bronchitis asthma or any other pulmonary problems. He has a history of CAD with recent stent placement diabetes hypertension myocardial infarction cataracts vertigo atrial fibrillation status post pacemaker insertion and some other minor medical problems. Objective - Vital Signs Vital signs: Vital Signs Temp 97.6 F 01/29/18 08:00 Pulse 58 L 01/29/18 08:00 Resp 16 01/29/18 08:00 BP 106/66 01/29/18 08:00 Pulse Ox 99 01/29/18 08:00 Intake & Output 01/28/18 01/29/18 01/29/18 18:59 06:59 18:59 Intake Total 800 Balance 800 Intake: Oral 600 Other 200 Other: Voiding Method Toilet Toilet Toilet # Voids 1 - Exam No acute distress, oriented 3. No supplemental oxygen noted HEENT examination is grossly unremarkable. Mucous membranes are moist. No oral lesions. Neck supple. Full range of motion. No adenopathy thyromegaly or neck vein distention. Cardiovascular examination reveals regular rhythm rate. S1-S2 normal. No S3 or S4. No discernible murmur noted. Lungs reveal clear breath sounds. Her sounds are equal bilaterally. No adventitious lung sounds including wheezes rhonchi or crackles. Abdomen soft bowel sounds are heard. No masses or tenderness. Extremities are intact. No cyanosis clubbing or edema. Skin is without rash or lesion. Neurologic examination is brief but nonfocal. - Labs CBC & Chem 7: 01/27/18 13:07 01/27/18 13:07 Labs: Abnormal Lab Results - Last 24 Hours (Table) 01/28/18 01/28/18 01/29/18 Range/Units 11:58 17:06 07:20 POC Glucose (mg/dL) 155 H 124 H 119 H (75-99) mg/dL Assessment and Plan Assessment: Assessment Dyspnea on exertion of unclear etiology, only present about 3 weeks. The patient does not appear to have intrinsic pulmonary disease. He is a lifelong nonsmoker denies COPD emphysema chronic bronchitis or asthma. History of CAD with previous stent placement History of diabetes mellitus History of cataracts History of hypertension Previous history of myocardial infarction History of atrial fibrillation, status post pacemaker insertion History of vertigo Plan: Plan dated 01/28/2018 The patient does not appear to have intrinsic pulmonary disease. He's only been short of breath on exertion for about 3 weeks. He seems to think that's the insertion of the recent stent have something to do with his dyspnea on exertion. The patient will need outpatient evaluation including a primary function test and/or methacholine challenge test and the pulmonary office. In addition, the patient be scheduled for a CT angiogram to rule out PE. Additional recommendations and suggestions are forthcoming. He should be evaluated for home oxygen prior to discharge. Plan dated 01/29/2018 The patient does not appear to have intrinsic pulmonary disease. He is a lifelong nonsmoker. He apparently is going back to the catheterization laboratory for evaluation. The CT angiogram was negative for pulmonary embolism. There was a cyst in the right kidney. There is some localized bronchiectasis in the anterior aspect of the left lower lobe, which is unlikely is causing his complaints at this time. Additional recommendations suggestions are forthcoming. She catheterization sheet turner okay, I would think a methacholine challenge test to rule out asthma would be appropriate. It is certainly possible that he has exercise-induced asthma developing recently. Time with Patient: Less than 30
[2018-01-29] MEDS ORDERED: IV FLUID CONTINUATION 925 ML IV ONE (11:56)
[2018-01-29] MEDS ORDERED: MIDAZOLAM 2 MG/2 ML VIAL ONE (12:05)
[2018-01-29] MEDS ORDERED: MIDAZOLAM 2 MG/2 ML VIAL IV ONE (12:08)
[2018-01-29] MEDS ORDERED: LIDOCAINE 1% INJ 10MG/ML (20 ML MDV) SQ ONE (12:12)
[2018-01-29] MEDS ORDERED: IOPAMIDOL-370 125ML BTL INJ ONE (12:23)
[2018-01-29] MEDS ORDERED: RX INFO: IV CONTRAST WAS GIVEN 1 EACH MISC MISCELLANE PRN (12:34)
--- NOTE | 2018-01-29 12:40 | P.PCN ---
Date of Procedure: 01/29/18 Preoperative Diagnosis: Recurrent episodes of shortness of breath, unexplained. History of recent stent placement of the LAD Postoperative Diagnosis: Patent stent in the LAD. Normal end-diastolic pressures of the left ventricle Description of Procedure: HISTORY: This is a 83-year-old gentleman with history of ischemic heart disease with multiple stent placement. Recently patient was admitted to the hospital with unstable angina and was found to have in-stent stenosis involving mid LAD. Patient had repeat stenting. Patient is admitted to the hospital now with increasing exertional shortness of breath and which are intermittent. As there is no explanation for these symptoms, patient is advised to have a cardiac cath to rule out any progression of ischemic heart disease especially in the restenosis of the stent. CONSENT:I have discussed the risks, benefits and alternative therapies for the above-mentioned procedure and for both sedation/analgesia as well as necessary blood product administration, if indicated, as they pertain to this patient. The patient has indicated understanding and acceptance of the risks and procedures discussed. PROCEDURE: Patient was brought to the lab in a fasting state. Patient was given some IV sedation. The right groin is infiltrated with lidocaine and left femoral artery was entered using Seldinger technique. A 6-Occitan catheter was left in place and selective coronary arteriography was performed. Patient tolerated the procedure well. Femoral angiogram was performed and Angio-Seal was applied for hemostasis. No immediate complications were noted and patient was transferred to [facility] in a stable condition Conscious Sedation: Versed 0.5mg Fentanyl 0 g Duration 14minutes HEMODYNAMICS: The aortic pressure was about 110/70. Left ventricular end- diastolic pressure is about 8-10. There was no gradient across the aortic valve SELECTIVE CORONARY ARTERIOGRAPHY: LEFT MAIN: Normal length and patent THE LEFT ANTERIOR DESCENDING CORONARY ARTERY: This is a good caliber vessel with patent stent in the proximal and also midportion. The diagonal branch. Circumflex and septal branch are patent. There is mild diffuse plaque in the LAD system without any significant focal lesion. THE LEFT CIRCUMFLEX AND IS CORONARY ARTERY: This is a good caliber vessel giving rise to good-sized OM branch. The circumflex coronary artery and branches are free of occlusive disease THE RIGHT CORONARY ARTERY: This is a moderate caliber vessel with mild diffuse disease and distally without any focal Sigmund occlusive disease LEFT VENTRICULOGRAPHY: Not performed .Left ventricle end-diastolic pressure was within normal limits FINAL IMPRESSION: Stable coronary artery disease with patent stents in the proximal and mid LAD. PLAN: Maximum medical therapy PROGNOSIS: Guarded
[2018-01-29 12:50] LABS: Glucose,Whole Blood 116 mg/dL (75-99)
[2018-01-29] MEDS: SODIUM CHLORIDE 0.9% 1,000 ML IV SCH (12:55)
[2018-01-29] MEDS: CALCIUM CARBONATE 500 MG CHEWABLE PO SCH (13:27)
[2018-01-29 15:46] VITALS: RESP 16
[2018-01-29 17:12] LABS: Glucose,Whole Blood 131 mg/dL (75-99)
[2018-01-29 20:52] LABS: Glucose,Whole Blood 170 mg/dL (75-99)
--- NOTE | 2018-01-29 22:32 | P.PN ---
Subjective Progress Note Date: 01/28/18 Principal diagnosis: Dyspnea Patient is a 83-year-old male with a known history of coronary artery disease status post cardiac Catheterization and stent placement about 3 weeks ago, diabetes type 2, hypertension, atrial fibrillation on anticoagulation with eliquis came to ER with complaints of chest pain and shortness of breath.. Patient does have recent cardiac catheterization. Patient states that since he was discharged from the hospital, has been having shortness of breath and tired and not able to do anything at home. Patient says that he went to [facility] mail from the [facility] for [facility], he could not make it and came back. Patient does have exertional shortness of breath. No orthopnea or PND otherwise. Patient does have a history of pacemaker placement due to bradycardia. Otherwise no cough or sputum production. No fever no chills. No sick contacts at home. No headache or dizziness or lightheadedness. EKG showed ventricular pacer rhythm Chest x-ray showed no acute cardio pulmonary process Troponin 1 negative 01/28/2018 Patient is still complaining of shortness of breath. Today patient went to take shower and had a panic attacks which made her pretty much worse. Otherwise patient is comfortable lying in the bed. Pulmonary was consulted for further evaluation of dyspnea for 3 weeks. Recommended outpatient workup with for asthma. Cardiology is planning for cardiac catheterization tomorrow. No commerce of chest pain. No fever no chills. No nausea vomiting or abdominal pain. No other acute overnight issues. Current medications reviewed Objective - Vital Signs Vital signs: Vital Signs Temp 98.2 F 01/28/18 11:20 Pulse 52 L 01/28/18 11:20 Resp 18 01/28/18 11:20 BP 109/71 01/28/18 11:20 Pulse Ox 97 01/28/18 11:20 Intake & Output 01/27/18 01/28/18 01/28/18 18:59 06:59 18:59 Intake Total 420 360 Balance 420 360 Weight 91 kg Intake: Oral 420 360 Other: Voiding Method Toilet Toilet # Voids 1 - Exam PHYSICAL EXAMINATION: Patient is lying in the bed comfortably, no acute distress, awake alert and oriented.. HEENT: Normocephalic. Neck is supple. Pupils reactive. Nostrils clear. Oral cavity is moist. Ears reveal no drainage. Neck reveals no JVD, carotid bruits, or thyromegaly. CHEST EXAMINATION: Trachea is central. Symmetrical expansion. Lung muñoz clear to auscultation and percussion. CARDIAC: Normal S1, S2 with no gallops. No murmurs ABDOMEN: Soft. Bowel sounds normal. No organomegaly. No abdominal bruits. Extremities: reveal no edema. No clubbing or cyanosis Neurologically awake, alert, oriented x3 with well-coordinated movements. No focal deficits noted Skin: No rash or skin lesions. Psychiatric: Coperative. Nonsuicidal Musculoskeletal: No joint swelling or deformity. Normal range of motion. - Labs CBC & Chem 7: 01/27/18 13:07 01/27/18 13:07 Labs: Abnormal Lab Results - Last 24 Hours (Table) 01/27/18 01/27/18 01/27/18 Range/Units 13:07 13:07 17:16 Carbon Dioxide 20 L (22-30) mmol/L BUN 25 H (9-20) mg/dL POC Glucose (mg/dL) 127 H (75-99) mg/dL Total Creatine Kinase 46 L (55-170) U/L 01/27/18 01/27/18 01/28/18 Range/Units 19:09 20:12 07:29 Carbon Dioxide (22-30) mmol/L BUN (9-20) mg/dL POC Glucose (mg/dL) 106 H 107 H (75-99) mg/dL Total Creatine Kinase 46 L (55-170) U/L 01/28/18 Range/Units 11:58 Carbon Dioxide (22-30) mmol/L BUN (9-20) mg/dL POC Glucose (mg/dL) 155 H (75-99) mg/dL Total Creatine Kinase (55-170) U/L Assessment and Plan Assessment: Atypical chest pain with recent history of cardiac Catheterization stent placement Dyspnea with unclear etiology. Further evaluation by pulmonary as an outpatient. Coronary artery disease with history of stent placement 3 weeks ago Diabetes type 2. [id number] Hypertension. Currently patient is hypotensive History of CA Atrial fibrillation on anticoagulation Bradycardia status post pacemaker placement Depression Previous history of smoking Plan: Patient will be continued on telemetry monitoring. Initial EKG and troponins negative. Continue with aspirin Plavix statins and follow up closely. Cardiology is planning for cardiac catheterization. Time with Patient: Greater than 30
--- NOTE | 2018-01-29 22:34 | P.PN ---
Subjective Progress Note Date: 01/29/18 Principal diagnosis: Dyspnea Patient is a 83-year-old male with a known history of coronary artery disease status post cardiac Catheterization and stent placement about 3 weeks ago, diabetes type 2, hypertension, atrial fibrillation on anticoagulation with eliquis came to ER with complaints of chest pain and shortness of breath.. Patient does have recent cardiac catheterization. Patient states that since he was discharged from the hospital, has been having shortness of breath and tired and not able to do anything at home. Patient says that he went to pickling solution maker mail from the box for intermediate, he could not make it and came back. Patient does have exertional shortness of breath. No orthopnea or PND otherwise. Patient does have a history of pacemaker placement due to bradycardia. Otherwise no cough or sputum production. No fever no chills. No sick contacts at home. No headache or dizziness or lightheadedness. EKG showed ventricular pacer rhythm Chest x-ray showed no acute cardio pulmonary process Troponin 1 negative 01/28/2018 Patient is still complaining of shortness of breath. Today patient went to take shower and had a panic attacks which made her pretty much worse. Otherwise patient is comfortable lying in the bed. Pulmonary was consulted for further evaluation of dyspnea for 3 weeks. Recommended outpatient workup with for asthma. Cardiology is planning for cardiac catheterization tomorrow. No commerce of chest pain. No fever no chills. No nausea vomiting or abdominal pain. No other acute overnight issues. 01/29/2018 Patient had cardiac catheterization today which showed patent stents. Otherwise patient denied any shortness of breath when lying in the bed. No chest pain. No other acute overnight issues. Continue the telemetry monitoring and outpatient follow up with pulmonary clinic for asthma evaluation. 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 All other review of systems negative except the above. Anticipate discharged tomorrow. Current medications reviewed Objective - Vital Signs Vital signs: Vital Signs Temp 97.6 F 01/29/18 16:00 Pulse 60 01/29/18 16:00 Resp 16 01/29/18 16:00 BP 107/68 01/29/18 16:00 Pulse Ox 98 01/29/18 16:00 Intake & Output 01/29/18 01/29/18 01/30/18 06:59 18:59 06:59 Intake Total 125 Balance 125 Intake: IV 125 Other: Voiding Method Toilet Toilet Urinal # Voids 1 - Exam PHYSICAL EXAMINATION: Patient is lying in the bed comfortably, no acute distress, awake alert and oriented.. HEENT: Normocephalic. Neck is supple. Pupils reactive. Nostrils clear. Oral cavity is moist. Ears reveal no drainage. Neck reveals no JVD, carotid bruits, or thyromegaly. CHEST EXAMINATION: Trachea is central. Symmetrical expansion. Lung muñoz clear to auscultation and percussion. CARDIAC: Normal S1, S2 with no gallops. No murmurs ABDOMEN: Soft. Bowel sounds normal. No organomegaly. No abdominal bruits. Extremities: reveal no edema. No clubbing or cyanosis Neurologically awake, alert, oriented x3 with well-coordinated movements. No focal deficits noted Skin: No rash or skin lesions. Psychiatric: Coperative. Nonsuicidal Musculoskeletal: No joint swelling or deformity. Normal range of motion. - Labs CBC & Chem 7: 01/27/18 13:07 01/27/18 13:07 Labs: Abnormal Lab Results - Last 24 Hours (Table) 01/29/18 01/29/18 01/29/18 Range/Units 07:20 12:48 17:10 POC Glucose (mg/dL) 119 H 116 H 131 H (75-99) mg/dL Assessment and Plan Assessment: Atypical chest pain with recent history of cardiac Catheterization stent placement Dyspnea with unclear etiology. Further evaluation by pulmonary as an outpatient. Coronary artery disease with history of stent placement 3 weeks ago Diabetes type 2. [id number] Hypertension. Currently patient is hypotensive History of RI Atrial fibrillation on anticoagulation Bradycardia status post pacemaker placement Depression Previous history of smoking Plan: Patient will be continued on telemetry monitoring. Initial EKG and troponins negative. Continue with aspirin Plavix statins and follow up closely. Patient is status post cardiac catheterization. Discussed with the patient and his at bedside in detail. Time with Patient: Greater than 30
[2018-01-30] MEDS: NITROGLYCERIN OINT 1 INCH/GM PACKET TOPICAL SCH ×3 (01:01→12:53)
[2018-01-30 06:40] LABS: Glucose,Whole Blood 120 mg/dL (75-99)
[2018-01-30] MEDS: SODIUM CHLORIDE 0.9% 1,000 ML IV SCH (07:03)
[2018-01-30] MEDS: metFORMIN 500 MG TAB PO SCH (08:49)
[2018-01-30] MEDS: LISINOPRIL 5 MG TAB PO SCH (10:03)
[2018-01-30] MEDS: CITALOPRAM HYDROBROMIDE 20 MG TAB PO SCH (10:03)
[2018-01-30] MEDS: ASPIRIN 81 MG PO SCH (10:03)
[2018-01-30] MEDS: ATORVASTATIN 40 MG TAB PO SCH (10:03)
[2018-01-30] MEDS: CHOLECALCIFEROL 1,000 UNIT TAB PO SCH (10:03)
[2018-01-30] MEDS: CLOPIDOGREL 75 MG TAB PO SCH (10:05)
[2018-01-30] MEDS: NON-FORMULARY DRUG (Glucosamine Sulfate 500 MG) PO SCH (10:06)
--- NOTE | 2018-01-30 10:07 | P.PN ---
Subjective Mr. Ramirez is a pleasant 83-year-old male past medical history significant for coronary artery disease s/p angioplasty with stent placement to the mid LAD with in-stent restenosis, diabetes mellius, hypertension and permanent pacemaker implantation. He follows with Dr. Galo in the office. He underwent cardiac catheterization yesterday which revealed stable coronary artery disease with patent stents in the proximal and mid LAD. He denies any further symptoms of shortness of breath, chest pain, dizziness or palpitations. Left groin is soft, nontender with no evidence of hematoma or ecchymosis. He has been up ambulating without difficulty. He states he feels generally weak. He states he did not sleep very well last night secondary to having to lay flat on his back through the day yesterday. Blood pressure 114/ 70 heart rate 87 afebrile maintaining oxygen saturation on room air. Objective - Vital Signs Vital signs: Vital Signs Temp 98.2 F 01/30/18 07:20 Pulse 87 01/30/18 07:20 Resp 16 01/30/18 07:20 BP 114/70 01/30/18 07:20 Pulse Ox 98 01/30/18 04:00 Intake & Output 01/29/18 01/30/18 01/30/18 18:59 06:59 18:59 Intake Total 125 120 Output Total 500 Balance 125 -500 120 Weight 91 kg Intake: IV 125 Oral 120 Output: Urine 500 Other: Voiding Method Toilet Toilet Toilet Urinal Urinal # Voids 1 - Exam GENERAL: Well-appearing, well-nourished and in no acute distress. NECK: Supple without JVD or thyromegaly. LUNGS: Breath sounds clear to auscultation bilaterally. Respiration equal and unlabored. No wheezes, rales or rhonchi. HEART: Regular rate and rhythm without murmurs, rubs or gallops. S1 and S2 heard. EXTREMITIES: Normal range of motion, no edema. No clubbing or cyanosis. Peripheral pulses intact. Left groin soft, nontender, no ecchymosis, no hematoma. - Labs CBC & Chem 7: 01/27/18 13:07 01/27/18 13:07 Labs: Abnormal Lab Results - Last 24 Hours (Table) 01/29/18 01/29/18 01/29/18 Range/Units 12:48 17:10 20:37 POC Glucose (mg/dL) 116 H 131 H 170 H (75-99) mg/dL 01/30/18 Range/Units 06:39 POC Glucose (mg/dL) 120 H (75-99) mg/dL Assessment and Plan Assessment: ASSESSMENT Shortness of breath. An acute coronary event has been ruled out with no EKG evidence of ischemia and negative cardiac enzymes. Cardiac catheterization performed yesterday revealed no progression of coronary artery disease. History of coronary artery disease status post angioplasty of the LAD Hypertension Paroxysmal atrial fibrillation on long-term anticoagulation Diabetes mellitus PLAN Stable from a cardiac perspective. Follow-up with Dr. Galo in one week. Nurse Practitioner note has been reviewed, I agree with a documented findings and plan of care. Patient was seen and examined.
[2018-01-30 11:39] VITALS: BP 99/64; PULSE 59; TEMP 98.1
[2018-01-30 12:09] LABS: Glucose,Whole Blood 103 mg/dL (75-99)
--- NOTE | 2018-01-30 12:46 | P.DS ---
Providers Date of admission: 01/27/18 15:05 Expected date of discharge: 01/30/18 Attending physician: Jw Ruby Consults: 01/27/18 15:05 Consult Physician Urgent Consulting Provider: Janusz Santos Consult Reason/Comments: sob,cp Do you want consulting provider notified?: Yes 01/28/18 08:58 Consult Physician Routine Consulting Provider: Merrill Vance Consult Reason/Comments: dyspnea Do you want consulting provider notified?: Yes Primary care physician: Jw Ruby Hospital Course: 83-year-old male was admitted to the emergency room. History of coronary disease with stent placement 3 weeks ago. History of diabetes hypertension and atrial fibrillation. Return to the emergency room with complaints of shortness of breath and fatigue. Patient had cardiac cath medical treatment only. Had consultation with pulmonology will follow-up for evaluation of asthma outpatient. Patient stable at this time cleared by cardiology for discharge Assessment Atypical chest pain with history of stent placement Dyspnea unclear etiology be further evaluated by pulmonology outpatient Diabetes type 2 Hypertension History of MD Atrial fibrillation Post pacemaker for bradycardia Depression Plan follow-up with family physician Dr. Jw Rbuy Follow-up with cardiology Follow-up with pulmonology for asthma workup Patient Condition at Discharge: Undetermined Plan - Discharge Summary Discharge Rx Participant: No New Discharge Prescriptions: Continue Citalopram Hydrobromide [CeleXA] 40 mg PO DAILY metFORMIN HCL [Glucophage] 500 mg PO DAILY Cholecalciferol [Vitamin D3] 2,000 unit PO DAILY Atorvastatin [Lipitor] 40 mg PO DAILY #90 tab Lisinopril [Zestril] 5 mg PO DAILY #90 tab Apixaban [Eliquis] 5 mg PO BID #0 Aspirin 81 mg PO DAILY #0 Glucosamine Sulfate 500 mg PO DAILY Calcium Carbonate [Calcium] 600 mg PO DAILY Clopidogrel [Plavix] 75 mg PO DAILY Discontinued Naproxen Sodium [Aleve] 440 mg PO Q12HR PRN PRN Reason: Pain No Action Nitroglycerin Sl Tabs [Nitrostat] 0.4 mg SUBLINGUAL Q5M PRN #25 tab PRN Reason: Chest Pain Discharge Medication List Citalopram Hydrobromide [CeleXA] 40 mg PO DAILY 03/14/16 [History] Cholecalciferol [Vitamin D3] 2,000 unit PO DAILY 07/06/17 [History] metFORMIN HCL [Glucophage] 500 mg PO DAILY 07/06/17 [History] Apixaban [Eliquis] 5 mg PO BID #0 01/08/18 [Rx] Aspirin 81 mg PO DAILY #0 01/08/18 [Rx] Atorvastatin [Lipitor] 40 mg PO DAILY #90 tab 01/08/18 [Rx] Lisinopril [Zestril] 5 mg PO DAILY #90 tab 01/08/18 [Rx] Nitroglycerin Sl Tabs [Nitrostat] 0.4 mg SUBLINGUAL Q5M PRN #25 tab 01/08/18 [Rx ] Calcium Carbonate [Calcium] 600 mg PO DAILY 01/27/18 [History] Clopidogrel [Plavix] 75 mg PO DAILY 01/27/18 [History] Glucosamine Sulfate 500 mg PO DAILY 01/27/18 [History] Follow up Appointment(s)/Referral(s): Jw Ruby MD [Primary Care Provider] - 1-2 days Deandre Arita DO [Doctor of Osteopathic Medicine] - 1 Week (Appointment made for February 09 @8:30am) Oscar Galo MD [STAFF PHYSICIAN] - 1 Week (Appointment made for the groin check on TuesdayFebruary 06 @ 4:00pm.) Patient Instructions/Handouts: Dyspnea (GEN)
[2018-01-30] MEDS: CALCIUM CARBONATE 500 MG CHEWABLE PO SCH (13:00)
--- NOTE | 2018-01-30 14:27 | P.PN ---
Subjective Progress Note Date: 01/30/18 Principal diagnosis: Pulmonary consult dated 01/28/2018 83-year-old male who states for the last 3 weeks or so, he's developed shortness of breath on exertion. He does not have shortness of breath at rest. He states that he recently had a cardiac catheterization with stent placement and never since that time, he's been short of breath with exertion. Again he denies any previous history of shortness of breath and denies any history of any lung disease. Specifically he denies emphysema chronic bronchitis asthma or any other pulmonary disease. He's essentially lifelong nonsmoker. Again he states that since he had the stent placement, he's been having any shortness of breath on exertion. He was seen in the emergency room and was known to have atrial fibrillation bradycardia and shortness of breath. He denies any cough wheezing phlegm production. Denies any hemoptysis. He denies any chest pain or pressure. His past medical history includes CAD diabetes hypertension myocardial infarction cataracts or vertigo atrial fibrillation status post pacemaker insertion previous cardiac catheterization with stent placement and some other minor surgical procedures. Progress note dated 01/29/2018 83-year-old male with complaints of shortness of breath on exertion for about 3 weeks. His shortness of breath seemed to develop occur for the first time right around the time he got a cardiac stent. He's going back to the catheterization laboratory today apparently according to his mannequin maker. Walking down the hallway makes him short of breath even getting up to use the bathroom makes him short of breath. He appears not to have any intrinsic pulmonary disease. He denies emphysema chronic bronchitis asthma or any other pulmonary problems. He has a history of CAD with recent stent placement diabetes hypertension myocardial infarction cataracts vertigo atrial fibrillation status post pacemaker insertion and some other minor medical problems. The patient is seen again today 01/30/2018 in follow-up in the observation unit. He is awake and alert in no acute distress. He had undergone repeat cardiac catheterization that did not reveal any evidence of in-stent restenosis. T angiogram is negative for pulmonary embolus. There is only mild focal bronchiectasis at the left lower lobe. Maintaining O2 saturations up to 100% on room air. He's been afebrile. Hemodynamically stable. Objective - Vital Signs Vital signs: Vital Signs Temp 98.1 F 01/30/18 11:15 Pulse 59 L 01/30/18 11:15 Resp 16 01/30/18 11:15 BP 99/64 01/30/18 11:15 Pulse Ox 100 01/30/18 11:15 Intake & Output 01/29/18 01/30/18 01/30/18 18:59 06:59 18:59 Intake Total 125 120 Output Total 500 Balance 125 -500 120 Weight 91 kg Intake: IV 125 Oral 120 Output: Urine 500 Other: Voiding Method Toilet Toilet Toilet Urinal Urinal # Voids 1 - Exam GENERAL EXAM: Alert, active, comfortable in no apparent distress. HEAD: Normocephalic. EYES: Normal reaction of pupils, equal size. NOSE: Clear with pink turbinates. THROAT: No erythema or exudates. NECK: No masses, no JVD. CHEST: No chest wall deformity. LUNGS: Equal air entry with no crackles, wheeze, rhonchi or dullness. CVS: S1 and S2 normal with no audible murmur, regular rhythm. ABDOMEN: No hepatosplenomegaly, normal bowel sounds, no guarding or rigidity. SPINE: No scoliosis or deformity SKIN: No rashes CENTRAL NERVOUS SYSTEM: No focal deficits, tone is normal in all 4 extremities. EXTREMITIES: There is no peripheral edema. No clubbing, no cyanosis. Peripheral pulses are intact. - Labs CBC & Chem 7: 01/27/18 13:07 01/27/18 13:07 Labs: Abnormal Lab Results - Last 24 Hours (Table) 01/29/18 01/29/18 01/30/18 Range/Units 17:10 20:37 06:39 POC Glucose (mg/dL) 131 H 170 H 120 H (75-99) mg/dL 01/30/18 Range/Units 12:04 POC Glucose (mg/dL) 103 H (75-99) mg/dL Assessment and Plan Assessment: Assessment Dyspnea on exertion of unclear etiology, only present about 3 weeks. The patient does not appear to have intrinsic pulmonary disease. He is a lifelong nonsmoker denies COPD emphysema chronic bronchitis or asthma. History of CAD with previous stent placement History of diabetes mellitus History of cataracts History of hypertension Previous history of myocardial infarction History of atrial fibrillation, status post pacemaker insertion History of vertigo Plan: She was seen and evaluated by Dr. Vance. No clear evidence of acute pulmonary disease. He is cleared for discharge from the pulmonary standpoint. He will be seen in our office in 1-2 weeks' time. We will obtain a pulmonary function testing to evaluate for any evidence of tonic pulmonary disease. The patient is agreeable to the plan. I, the cosigning physician, performed a history & physical examination of the patient. Lungs sounds are clear. Maintaining good O2 saturations in the 90s on room air. I discussed the assessment and plan of care with my nurse practitioner, Kalani Hua. I attest to the above note as dictated by her.
== END 2018-01-30 13:48 | disposition home or self-care (01) ==
LOC: EC 12:28 → 3OBS 15:05 → 3SUR 19:21 → 3OBS 01-30 07:00
PROVIDERS: ADMIT Family Medicine; ATTEND Family Medicine
DX: R06.09 Other forms of dyspnea (principal); R07.89 Other chest pain; R53.1 Weakness; I48.0 Paroxysmal atrial fibrillation; I25.10 Atherosclerotic heart disease of native coronary artery without angina pectoris; E11.9 Type 2 diabetes mellitus without complications; I10 Essential (primary) hypertension; I95.9 Hypotension, unspecified; F41.0 Panic disorder [episodic paroxysmal anxiety]; I25.2 Old myocardial infarction; F32.9 Major depressive disorder, single episode, unspecified; Z79.01 Long term (current) use of anticoagulants; Z79.899 Other long term (current) drug therapy; Z79.84 Long term (current) use of oral hypoglycemic drugs; Z79.82 Long term (current) use of aspirin; Z79.02 Long term (current) use of antithrombotics/antiplatelets; Z98.42 Cataract extraction status, left eye; Z98.41 Cataract extraction status, right eye; Z96.1 Presence of intraocular lens; Z95.5 Presence of coronary angioplasty implant and graft; Z95.0 Presence of cardiac pacemaker; Z87.891 Personal history of nicotine dependence; Z80.9 Family history of malignant neoplasm, unspecified
CPT/HCPCS: 36415; 71046; 71275; 80053; 80061; 82550; 82553; 83735; 83880; 84484; 85025; 85379; 85610; 85730; 93005; 93306; 93458; 99285

== ENCOUNTER → 2018-05-15 | Outpatient (CLI) | payer MEDICARE ==
--- NOTE | 2018-05-15 16:40 | CT ---
EXAMINATION TYPE: CT brain wo con DATE OF EXAM: 05/15/2018 COMPARISON: 03/14/2016 HISTORY: Pain CT DLP: 1106 mGycm Automated exposure control for dose reduction was used. FINDINGS: Intracranial atherosclerotic changes. Moderate generalized degenerative change. Periventricular low a ttenuation compatible with remote microvascular ischemia. No midline shift or mass effect. Calvarium intact. Changes of chronic sinusitis noted. Nasal septal deviation noted. Calvarium intact. Spina bif kristy occulta of C1. IMPRESSION: 1. DEGENERATIVE AND NONSPECIFIC FAINT WHITE MATTER CHANGES MOST TYPICAL REMOTE MICROVASCULAR ISCHEMIA . 2. NO DEFINITE ACUTE HEMORRHAGE.
== END | disposition home or self-care (01) ==
LOC: RADCTMAIN 15:13
PROVIDERS: ATTEND Family Medicine
DX: G31.9 Degenerative disease of nervous system, unspecified (principal); R90.89 Other abnormal findings on diagnostic imaging of central nervous system
CPT/HCPCS: 70450

== ENCOUNTER 2019-06-04 14:55 | Observation (INO) | payer MEDICARE ==
[2019-06-04 15:06] LABS: Glucose,Whole Blood 107 mg/dL (75-99)
[2019-06-04] MEDS ORDERED: SODIUM CHLORIDE 0.9% 500 ML 500 ML IV STA (15:14)
--- NOTE | 2019-06-04 15:19 | ED ---
General Adult HPI - General Chief complaint: Shortness of Breath Stated complaint: SOB Time Seen by Provider: 06/04/19 15:07 Source: family Mode of arrival: wheelchair Limitations: no limitations - History of Present Illness Initial comments: Dictation was produced using [employer] dictation software. please excuse any grammatical, word or spelling errors. Chief Complaint: 84-year-old male presenting acute dyspnea. History of Present Illness: 84 -year-old male presents with chief complaint dyspnea. Patient was on his way of the local grocery store when he became acutely dyspneic. Patient states that he was air hungry. Patient states she's never had an episode like this in the past. Patient has any lower extremity symptoms. Denies any history of blood clots. Denies any chest pain. Patient has any history of COPD. His remote history of smoking. The ROS documented in this emergency department record has been reviewed and confirmed by me. Those systems with pertinent positive or negative responses have been documented in the HPI. All other systems are other negative and/or noncontributory. PHYSICAL EXAM: General Impression: Alert and oriented x3, mild dyspneic, in good spirits, malodorous HEENT: Normocephalic atraumatic, extra-ocular movements intact, pupils equal and reactive to light bilaterally, mucous membranes moist. Cardiovascular: Heart regular rate and rhythm, S1&S2 audible, no murmurs, rubs or gallops Chest: Lungs clear to auscultation bilaterally, no rhonchi, no wheeze, no rales Abdomen: Bowel sounds present, abdomen soft, non-tender, non-distended, no organomegaly Musculoskeletal: Pulses present and equal in all extremities, no peripheral edema Motor: no focal deficits noted Neurological: CN II-XII grossly intact, no focal motor or sensory deficits noted Skin: Intact with no visualized rashes Psych: Normal affect and mood ED course: 84 yo M w chief complaint of dyspnea. All signs upon arrival within acceptable limits.Laboratory evaluation obtained. 16 unremarkable. Coag panel unremarkable. D-dimer 0.5. Metabolic panel shows mild non-gap acidosis. Cardiac enzymes negative. Prematurity peptide is 1000. Chest x-ray is nonacute. Patient observed in emergency Department with no significant changes of medical radiation. Or some concern that patient's shortness of breath is related to ACS. Patient will be admitted for serial tropoinins and cardiac consultation. EKG interpretation: Ventricular rate 60, paced rhythm, QRS 152, QTC 490. No MI prolongation, no QTC prolongation, no ST or T-wave changes noted. EKG compared to 01/27/2018 showing no changes. Overall, this EKG is unremarkable - Related Data Home Medications Medication Instructions Recorded Confirmed Citalopram Hydrobromide [CeleXA] 40 mg PO DAILY 03/14/16 01/27/18 Cholecalciferol [Vitamin D3 (25 2,000 unit PO DAILY 07/06/17 01/27/18 Mcg = 1000 Iu)] metFORMIN HCL [Glucophage] 500 mg PO DAILY 07/06/17 01/27/18 Calcium Carbonate [Calcium] 600 mg PO DAILY 01/27/18 01/27/18 Clopidogrel [Plavix] 75 mg PO DAILY 01/27/18 01/28/18 Glucosamine Sulfate 500 mg PO DAILY 01/27/18 01/27/18 Previous Rx's Medication Instructions Recorded Apixaban [Eliquis] 5 mg PO BID #0 01/08/18 Aspirin 81 mg PO DAILY #0 01/08/18 Atorvastatin [Lipitor] 40 mg PO DAILY #90 tab 01/08/18 Lisinopril [Zestril] 5 mg PO DAILY #90 tab 01/08/18 Nitroglycerin Sl Tabs [Nitrostat] 0.4 mg SUBLINGUAL Q5M PRN #25 tab 01/08/18 Allergies Allergy/AdvReac Type Severity Reaction Status Date / Time No Known Allergies Allergy Verified 06/04/19 14:59 Review of Systems ROS Statement: Those systems with pertinent positive or pertinent negative responses have been documented in the HPI. ROS Other: All systems not noted in ROS Statement are negative. Past Medical History Past Medical History: Coronary Artery Disease (CAD), Diabetes Mellitus, Eye Disorder, Hypertension, Myocardial Infarction ([place]) Additional Past Medical History / Comment(s): See Dr Galo's H&P. past cataracts, vertigo/balance issues. 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 Last Myocardial Infarction Date:: 2010 History of Any Multi-Drug Resistant Organisms: None Reported Past Surgical History: Heart Catheterization With Stent, Orthopedic Surgery, Pacemaker Additional Past Surgical History / Comment(s): lt eye lens implant, laser eye sx rt eye,rt shoulder rotator cuff repair Past Anesthesia/Blood Transfusion Reactions: Motion Sickness Date of Last Stent Placement:: 2010 Type of Cardiac Device: Permanent Pacemaker Device Placement Date:: 2017 Past Psychological History: Depression Smoking Status: Former smoker Past Alcohol Use History: None Reported Past Drug Use History: None Reported - Past Family History Father Family Medical History: Cancer Mother Family Medical History: Cancer Brother(s) Family Medical History: Cancer Sister(s) Family Medical History: Cancer General Exam Limitations: no limitations Course Vital Signs 06/04/19 14:55 Temperature 97.7 F Pulse Rate 69 Respiratory 24 Rate Blood Pressure 101/64 O2 Sat by Pulse 96 Oximetry Medical Decision Making - Lab Data Result diagrams: 06/04/19 15:27 06/04/19 15:27 Lab Results 06/04/19 06/04/19 06/04/19 Range/Units 15:04 15:27 15:27 WBC 7.3 (3.8-10.6) k/uL RBC 3.98 L (4.30-5.90) m/uL Hgb 12.8 L (13.0-17.5) gm/dL Hct 37.2 L (39.0-53.0) % MCV 93.4 (80.0-100.0) fL MCH 32.1 (25.0-35.0) pg MCHC 34.4 (31.0-37.0) g/dL RDW 13.1 (11.5-15.5) % Plt Count 209 (150-450) k/uL Neutrophils % 62 % Lymphocytes % 22 % Monocytes % 5 % Eosinophils % 8 % Basophils % 1 % Neutrophils # 4.5 (1.3-7.7) k/uL Lymphocytes # 1.6 (1.0-4.8) k/uL Monocytes # 0.4 (0-1.0) k/uL Eosinophils # 0.6 (0-0.7) k/uL Basophils # 0.0 (0-0.2) k/uL PT (9.0-12.0) sec INR (<1.2) APTT (22.0-30.0) sec D-Dimer (<0.60) mg/L FEU Sodium 137 (137-145) mmol/L Potassium 5.2 H (3.5-5.1) mmol/L Chloride 108 H (98-107) mmol/L Carbon Dioxide 19 L (22-30) mmol/L Anion Gap 10 mmol/L BUN 37 H (9-20) mg/dL Creatinine 1.36 H (0.66-1.25) mg/dL Est GFR (CKD-EPI)AfAm 56 (>60 ml/min/1.73 sqM) Est GFR (CKD-EPI)NonAf 48 (>60 ml/min/1.73 sqM) Glucose 100 H (74-99) mg/dL POC Glucose (mg/dL) 107 H (75-99) mg/dL POC Glu Process Design Chemical Engineer ID Beverley Nugent Calcium 9.6 (8.4-10.2) mg/dL Magnesium 1.6 (1.6-2.3) mg/dL Total Bilirubin 0.8 (0.2-1.3) mg/dL AST 25 (17-59) U/L ALT 12 (4-49) U/L Alkaline Phosphatase 72 (38-126) U/L Troponin I (0.000-0.034) ng/mL NT-Pro-B Natriuret Pep pg/mL Total Protein 6.7 (6.3-8.2) g/dL Albumin 4.0 (3.5-5.0) g/dL 06/04/19 06/04/19 06/04/19 Range/Units 15:27 15:27 15:27 WBC (3.8-10.6) k/uL RBC (4.30-5.90) m/uL Hgb (13.0-17.5) gm/dL Hct (39.0-53.0) % MCV (80.0-100.0) fL MCH (25.0-35.0) pg MCHC (31.0-37.0) g/dL RDW (11.5-15.5) % Plt Count (150-450) k/uL Neutrophils % % Lymphocytes % % Monocytes % % Eosinophils % % Basophils % % Neutrophils # (1.3-7.7) k/uL Lymphocytes # (1.0-4.8) k/uL Monocytes # (0-1.0) k/uL Eosinophils # (0-0.7) k/uL Basophils # (0-0.2) k/uL PT 10.2 (9.0-12.0) sec INR 0.9 (<1.2) APTT 24.5 (22.0-30.0) sec D-Dimer 0.50 (<0.60) mg/L FEU Sodium (137-145) mmol/L Potassium (3.5-5.1) mmol/L Chloride (98-107) mmol/L Carbon Dioxide (22-30) mmol/L Anion Gap mmol/L BUN (9-20) mg/dL Creatinine (0.66-1.25) mg/dL Est GFR (CKD-EPI)AfAm (>60 ml/min/1.73 sqM) Est GFR (CKD-EPI)NonAf (>60 ml/min/1.73 sqM) Glucose (74-99) mg/dL POC Glucose (mg/dL) (75-99) mg/dL POC Glu Process Design Chemical Engineer ID Calcium (8.4-10.2) mg/dL Magnesium (1.6-2.3) mg/dL Total Bilirubin (0.2-1.3) mg/dL AST (17-59) U/L ALT (4-49) U/L Alkaline Phosphatase (38-126) U/L Troponin I <0.012 (0.000-0.034) ng/mL NT-Pro-B Natriuret Pep 1220 pg/mL Total Protein (6.3-8.2) g/dL Albumin (3.5-5.0) g/dL Disposition Clinical Impression: Dyspnea Disposition: ADMITTED IP TO THIS HOSP Condition: Fair Referrals: Jw Ruby MD [Primary Care Provider] - 1-2 days Decision Time: 16:49
--- NOTE | 2019-06-04 15:30 | XR ---
EXAMINATION TYPE: XR chest 2V DATE OF EXAM: 06/04/2019 COMPARISON: Chest x-ray 01/27/2018 HISTORY: Dyspnea, shortness of breath TECHNIQUE: Frontal and lateral views of the chest are obtained. FINDINGS: There is a generator in the right pectoral region, lead courses to the right ventricle. Dis varsha right clavicle has been resected and is stable in appearance. There is no focal air space opacit y, pleural effusion, or pneumothorax seen. The cardiac silhouette size is within normal limits. The re is eventration of the right hemidiaphragm. Surgical clips are present in the right upper quadrant. Some probable scarring present in the left lower lung is unchanged in appearance. There are coronary artery calcifications. The osseous structures are intact. IMPRESSION: No acute cardiopulmonary process. Coronary artery disease.
[2019-06-04 15:46] LABS: Basophils % (A) 1 %; Eosinophils # (A) 0.6 k/uL (0-0.7); Eosinophils % (A) 8 %; HCT 37.2 % (39.0-53.0); HGB 12.8 gm/dL (13.0-17.5); Lymphocytes # (A) 1.6 k/uL (1.0-4.8); Lymphocytes % (A) 22 %; MCH 32.1 pg (25.0-35.0); MCHC 34.4 g/dL (31.0-37.0); MCV 93.4 fL (80.0-100.0); Mean Platelet Volume 7.1; Monocytes # (A) 0.4 k/uL (0-1.0); Monocytes % (A) 5 %; Neutrophils # (A) 4.5 k/uL (1.3-7.7); Neutrophils % (A) 62 %; Platelet Count 209 k/uL (150-450); RBC 3.98 m/uL (4.30-5.90); RDW 13.1 % (11.5-15.5); WBC 7.3 k/uL (3.8-10.6)
[2019-06-04 15:55] LABS: Calcium 9.6 mg/dL (8.4-10.2); Magnesium 1.6 mg/dL (1.6-2.3); Potassium 5.2 mmol/L (3.5-5.1); Total Bilirubin 0.8 mg/dL (0.2-1.3); Total Protein 6.7 g/dL (6.3-8.2)
[2019-06-04 15:57] LABS: D-Dimer 0.5 mg/L FEU (<0.60); INR 0.9 (<1.2); Partial Thromboplastin Time 24.5 sec (22.0-30.0); Prothrombin Time 10.2 sec (9.0-12.0)
[2019-06-04] MEDS ORDERED: FUROSEMIDE 10 MG/ML 4 ML VIAL IV STA (16:26)
[2019-06-04] MEDS ORDERED: ASPIRIN 81 MG PO STA (16:49)
--- NOTE | 2019-06-04 17:22 | P.HPIM ---
History of Present Illness 82-year-old pleasant male came in with complaints of a brief episode of acute dyspnea which started while he was shopping for groceries. Patient doesn't have any history of COPD patient was extensively evaluated in the past for COPD and as per pulmonology dictation patient doesn't have any intrinsic lung disease. Patient denied any fever chills denied any cough chest x-ray did not show any significant abnormality patient is not in heart failure doesn't have any elevated JVD BNP is not significantly elevated. Patient does have history of coronary disease patient had similar symptoms of shortness of breath in the past in which she was treated as angina Levaquin to and the patient understood stent at that time because of which patient is is concerned and came to the year patient doesn't have any symptoms of shortness of breath saturating 100% on 2 L may not require any oxygen at this time. Patient used to smoke in the past quit smoking years ago. Patient EKG showed intraventricular block without any significant acute ST-T wave changes troponin was done which was negative ER physician wanted me to admit the patient for monitoring for 2 more sets of troponins. Patient denied any chest pain my suspicion is low for pulmonary embolism as his shortness of breath is only brief and completely resolved at this time. Patient does have history of atrial fibrillation may have had an episode of A. fib which led to shortness of breath. She is presently sinus rhythm Review of Systems REVIEW OF SYSTEMS: CONSTITUTIONAL: No fever, no malaise, no fatigue. HEENT: No recent visual problems or hearing problems. Denied any sore throat. CARDIOVASCULAR: No chest pain, orthopnea, PND, no palpitations, no syncope. PULMONARY: no cough, no hemoptysis. GASTROINTESTINAL: No diarrhea, no nausea, no vomiting, no abdominal pain. NEUROLOGICAL: No headaches, no weakness, no numbness. HEMATOLOGICAL: Denies any bleeding or petechiae. GENITOURINARY: Denies any burning micturition, frequency, or urgency. MUSCULOSKELETAL/RHEUMATOLOGICAL: Denies any joint pain, swelling, or any muscle pain. ENDOCRINE: Denies any polyuria or polydipsia. The rest of the 14-point review of systems is negative. Past Medical History Past Medical History: Coronary Artery Disease (CAD), Diabetes Mellitus, Eye Disorder, Hypertension, Myocardial Infarction ([place]) Additional Past Medical History / Comment(s): See Dr Galo's H&P. past cataracts, vertigo/balance issues. 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 Last Myocardial Infarction Date:: 2010 History of Any Multi-Drug Resistant Organisms: None Reported Past Surgical History: Heart Catheterization With Stent, Orthopedic Surgery, Pacemaker Additional Past Surgical History / Comment(s): lt eye lens implant, laser eye sx rt eye,rt shoulder rotator cuff repair Past Anesthesia/Blood Transfusion Reactions: Motion Sickness Date of Last Stent Placement:: 2010 Type of Cardiac Device: Permanent Pacemaker Device Placement Date:: 2017 Past Psychological History: Depression Smoking Status: Former smoker Past Alcohol Use History: None Reported Past Drug Use History: None Reported - Past Family History Father Family Medical History: Cancer Mother Family Medical History: Cancer Brother(s) Family Medical History: Cancer Sister(s) Family Medical History: Cancer Medications and Allergies Home Medications Medication Instructions Recorded Confirmed Type Citalopram Hydrobromide [CeleXA] 40 mg PO DAILY 03/14/16 01/27/18 History Cholecalciferol [Vitamin D3 (25 2,000 unit PO DAILY 07/06/17 01/27/18 History Mcg = 1000 Iu)] metFORMIN HCL [Glucophage] 500 mg PO DAILY 07/06/17 01/27/18 History Apixaban [Eliquis] 5 mg PO BID #0 01/08/18 01/27/18 Rx Aspirin 81 mg PO DAILY #0 01/08/18 01/27/18 Rx Atorvastatin [Lipitor] 40 mg PO DAILY #90 tab 01/08/18 01/27/18 Rx Lisinopril [Zestril] 5 mg PO DAILY #90 tab 01/08/18 01/27/18 Rx Nitroglycerin Sl Tabs [Nitrostat] 0.4 mg SUBLINGUAL Q5M PRN #25 tab 01/08/18 01/27/18 Rx Calcium Carbonate [Calcium] 600 mg PO DAILY 01/27/18 01/27/18 History Clopidogrel [Plavix] 75 mg PO DAILY 01/27/18 01/28/18 History Glucosamine Sulfate 500 mg PO DAILY 01/27/18 01/27/18 History Allergies Allergy/AdvReac Type Severity Reaction Status Date / Time No Known Allergies Allergy Verified 06/04/19 16:55 Physical Exam Vitals: Vital Signs Temp Pulse Resp BP Pulse Ox 06/04/19 17:01 61 16 105/88 100 06/04/19 14:55 97.7 F 69 24 101/64 96 Intake and Output 06/04/19 06/04/19 06/04/19 06:59 14:59 22:59 Other: Weight 89.358 kg PHYSICAL EXAMINATION: GENERAL: The patient is alert and oriented x3, not in any acute distress. Well developed, well nourished. HEENT: Pupils are round and equally reacting to light. EOMI. No scleral icterus. No conjunctival pallor. Normocephalic, atraumatic. No pharyngeal erythema. No thyromegaly. CARDIOVASCULAR: S1 and S2 present. No murmurs, rubs, or gallops. PULMONARY: Chest is clear to auscultation, no wheezing or crackles. ABDOMEN: Soft, nontender, nondistended, normoactive bowel sounds. No palpable o rganomegaly. MUSCULOSKELETAL: No joint swelling or deformity. EXTREMITIES: No cyanosis, clubbing, or pedal edema. NEUROLOGICAL: Gross neurological examination did not reveal any focal deficits. SKIN: No rashes. Results CBC & Chem 7: 06/04/19 15:27 06/04/19 15:27 Labs: Abnormal Lab Results - Last 24 Hours (Table) 06/04/19 06/04/19 06/04/19 Range/Units 15:04 15:27 15:27 RBC 3.98 L (4.30-5.90) m/uL Hgb 12.8 L (13.0-17.5) gm/dL Hct 37.2 L (39.0-53.0) % Potassium 5.2 H (3.5-5.1) mmol/L Chloride 108 H (98-107) mmol/L Carbon Dioxide 19 L (22-30) mmol/L BUN 37 H (9-20) mg/dL Creatinine 1.36 H (0.66-1.25) mg/dL Glucose 100 H (74-99) mg/dL POC Glucose (mg/dL) 107 H (75-99) mg/dL Assessment and Plan Plan: - shortness of breath etiology is not clear may be an episode of atrial fibrillation which is not evident now. Patient the creatinine is elevated may be a bit volume depleted will be started on IV fluids and this intravascularly depletion may have contributed to an episode of A. fib. My suspicion is low that patient has an angina but will obtain 2 more sets of troponins and patient doesn't have any chest pain. -Coronary artery disease -History of A. fib on Eliquis which will be resumed his other medications are not verified yet was is admitted for start him back on his home medications which showed is appropriate. 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
[2019-06-04 20:06] LABS: Glucose,Whole Blood 176 mg/dL (75-99)
[2019-06-04] MEDS: APIXABAN 5 MG TAB PO SCH (21:00)
[2019-06-05 03:49] LABS: Calcium 9.3 mg/dL (8.4-10.2); Potassium 4.3 mmol/L (3.5-5.1)
[2019-06-05] MEDS: SODIUM CHLORIDE 0.9% 1,000 ML IV SCH ×2 (04:04→04:05)
[2019-06-05 06:47] LABS: Glucose,Whole Blood 117 mg/dL (75-99)
[2019-06-05 07:16] VITALS: RESP 18
[2019-06-05] MEDS ORDERED: AMINOPHYLLINE 500 MG/20 ML VIAL IV PRN (07:52)
[2019-06-05] MEDS ORDERED: CAFFEINE CITRATE 60 MG/3 ML VIAL IV PRN (07:52)
[2019-06-05] MEDS ORDERED: DIPYRIDAMOLE 51 MG in SODIUM CHLORIDE 0.9% 39.8 ML IV ONE (08:00)
[2019-06-05] MEDS ORDERED: ASPIRIN 81 MG PO SCH (09:00)
[2019-06-05] MEDS ORDERED: metFORMIN 500 MG TAB PO SCH (09:00)
[2019-06-05] MEDS ORDERED: CITALOPRAM HYDROBROMIDE 20 MG TAB PO SCH (09:00)
[2019-06-05] MEDS ORDERED: LISINOPRIL 5 MG TAB PO SCH (09:00)
[2019-06-05] MEDS ORDERED: ASPIRIN 325 MG TAB PO SCH (09:00)
--- NOTE | 2019-06-05 11:00 | ECHOF ---
Referral Reason: MEASUREMENTS -------- HEIGHT: 162.6 cm WEIGHT: 89.4 kg BP: RVIDd: 2.9 cm (< 3.3) IVSd: 1.4 cm (0.6 - 1.1) LVIDd: 4.6 cm (3.9 - 5.3) LVPWd: 1.5 cm (0.6 - 1.1) IVSs: 1.6 cm LVIDs: 3.9 cm LVPWs: 1.4 cm LA Diam: 4.7 cm (2.7 - 3.8) LAESV Index (A-L): 36.66 ml/m Ao Diam: 3.3 cm (2.0 - 3.7) AV Cusp: 1.7 cm (1.5 - 2.6) MV EXCURSION: 17.354 mm (> 18.000) MV EF SLOPE: 97 mm/s (70 - 150) EPSS: 0.7 cm MV E Tacos: 0.52 m/s MV DecT: 170 ms MV A Tacos: 0.23 m/s MV E/A Ratio: 2.24 AR PHT: 854 ms RAP: 5.00 mmHg RVSP: 24.45 mmHg FINDINGS -------- Paced rhythm. Pacerwire seen in RV and RA. This was a technically adequate study. The left ventricular size is normal. There is mild concentric left ventricular hypertrophy. Overa ll left ventricular systolic function is normal with, an EF between 55 - 60 %. The right ventricle is normal in size. LA is moderately dilated 34-39 ml/m2 The right atrial size is normal. The aortic valve is trileaflet and appears structurally normal. There is mild aortic regurgitation. The mitral valve is normal. Mild mitral regurgitation is present. Mild tricuspid regurgitation present. Right ventricular systolic pressure is normal at < 35 mmHg. There is no evidence of pulmonary hypertension. There is no pulmonic regurgitation present. The aortic root size is normal. There is no pericardial effusion. CONCLUSIONS -------- 1. Paced rhythm. 2. Pacerwire seen in RV and RA. 3. This was a technically adequate study. 4. The left ventricular size is normal. 5. There is mild concentric left ventricular hypertrophy. 6. Overall left ventricular systolic function is normal with, an EF between 55 - 60 %. 7. LA is moderately dilated 34-39 ml/m2 8. There is mild aortic regurgitation. 9. Mild mitral regurgitation is present. 10. Mild tricuspid regurgitation present. 11. Right ventricular systolic pressure is normal at < 35 mmHg. 12. There is no pulmonic regurgitation present. 13. The aortic root size is normal. 14. There is no pericardial effusion. CABLE TECHNICIAN: Baylee Son RDCS
[2019-06-05] MEDS: APIXABAN 5 MG TAB PO SCH (11:01)
--- NOTE | 2019-06-05 11:01 | CONS ---
CONSULTATION Mr. Ramirez is an 84-year-old male who is followed by Dr. Galo, has a known history of coronary artery disease as well as permanent pacemaker implantation and chronic persistent atrial fibrillation, who has been anticoagulated and presented with symptoms of dyspnea. According to him, he was walking yesterday when he became acutely dyspneic without any chest discomfort. He had a prior episode of dyspnea on and off in the past. His cardiac history is remarkable for history of coronary artery disease, status post percutaneous revascularization of his LAD done in 2018 and subsequent repeat cardiac catheterization in January of 2018 that revealed no evidence of restenosis. He denies any chest pain. He denies any dizziness or palpitation. He denies any nausea. He has no PND, orthopnea, or peripheral edema. His coronary risk factors are remarkable for history of hypertension and diabetes. He is a nonsmoker. MEDICATION: His medications include Eliquis 5 mg twice a day, Celexa 40 mg daily, lisinopril 5 mg daily, and metformin 500 mg daily. REVIEW OF SYSTEMS: RESPIRATORY SYSTEM: He has no documented history of recent wheezing or cough. He has mild asthma according to him. GI SYSTEM: No recent GI bleeding. No peptic ulcer disease. SYSTEM: No dysuria or hematuria. NERVOUS SYSTEM: No stroke or seizure. PHYSICAL EXAMINATION: An 84-year-old male, alert, in no apparent distress. Blood pressure 108/70 with the heart rate in the 60s. HEAD: Normocephalic. EYES: Sclerae anicteric. NECK: Good upstroke. No bruit. No jugular venous distention. LUNGS: Clear to auscultation. HEART: Regular rate and rhythm. S1, S2 with systolic murmur at the base. No diastolic murmur. No rub. ABDOMEN: Soft, nontender. Positive bowel sounds. No organomegaly. EXTREMITIES: No edema. Intact distal pulses. LAB DATA: EKG revealed atrial fibrillation with 100% ventricle pacing. Troponin less than 0.012. BUN creatinine 34 and 1.36, potassium 4.3. Cholesterol 151, LDL of 80. Hemoglobin of 12.8. Chest x-ray revealed no acute infiltrate. IMPRESSION: 1. Acute dyspnea of unclear etiology, no clear evidence to suggest acute coronary syndrome. 2. History of coronary artery disease, status post percutaneous revascularization. 3. History of hypertension. 4. Chronic persistent atrial fibrillation, anticoagulated. 5. Renal failure. 6. Diabetes mellitus. RECOMMENDATION: I will hold his lisinopril and metformin at this time. The patient will undergo an echocardiogram with Doppler as well as a myocardial perfusion imaging. If there is no evidence of inducible ischemia, then no further cardiac workup will be needed. Thank you for this consult. Will follow with you. MOLINA / JESSICA: [id number] /
[2019-06-05 11:13] VITALS: BP 95/63; PULSE 57; TEMP 97.5
[2019-06-05 11:30] LABS: Glucose,Whole Blood 120 mg/dL (75-99)
--- NOTE | 2019-06-05 11:37 | NM ---
EXAMINATION TYPE: NM stress persantine cardiolit DATE OF EXAM: 06/05/2019 COMPARISON: NONE HISTORY: History of tobacco use remotely, hypercholesterolemia, prior catheterization and two-vessel angioplasty, hypercholesterolemia, hypertension, diabetes, and prior TIA presents with chest pain and difficulty breathing for patient. TECHNIQUE: After the intravenous administration of 10.7 mCi Tc 99m Sestamibi - Cardiolite resting SP ECT images acquired 45 minutes post injection. The patient received 51 mg Persantine, 25.8 mCi Tc 99m Sestamibi - Stress images obtained 35 minutes post injection FINDINGS: Review of stress and rest SPECT images small area of defect on rest and stress images inferior left v entricular wall near apex. No reversible ischemia. Gated analysis shows normal wall motion with an e stimated left ventricular ejection fraction of 54 %. IMPRESSION: No scintigraphic evidence for reversible ischemia.
--- NOTE | 2019-06-05 12:46 | EST ---
EXERCISE STRESS DATE OF SERVICE: 06/05/2019 AGE: 84 SEX: Male HT: 71" WT: 197 pounds PROTOCOL: Persantine Cardiolite STAGE: DURATION OF EXERCISE: HEART RATE REST: 62 BLOOD PRESSURE REST: 119/81 MAXIMUM HEART RATE ACHIEVED: 67 MAXIMUM BLOOD PRESSURE: 121/65 85% MPHR: 117 100% MPHR: 138 METS: INDICATIONS: Chest pain. CLINICAL INFORMATION: Baseline rhythm is atrial fibrillation with 100% pacing, rate of 62. Baseline blood pressure 119/81 mmHg. Patient received infusion of dipyridamole. Electrocardiograph monitoring revealed rare PVCs. There was no evidence of diagnostic ischemic ST deviation. Cardiolite was injected per protocol. CONCLUSION: 1. Nondiagnostic electrocardiograph stress testing. 2. Nuclear images will be reported separately. MMODL / IJN: [id number] /
--- NOTE | 2019-06-05 16:47 | P.DS ---
Providers Date of admission: 06/04/19 16:49 Attending physician: Evy Roper Consults: 06/04/19 16:49 Consult Physician Urgent Consulting Provider: Rosendo Sin Consult Reason/Comments: dyspnea Do you want consulting provider notified?: Yes Primary care physician: Jw Ruby [facility] Hospital Course: 82-year-old pleasant male came in with complaints of a brief episode of acute dyspnea which started while he was shopping for groceries. Patient doesn't have any history of COPD patient was extensively evaluated in the past for COPD and as per pulmonology dictation patient doesn't have any intrinsic lung disease. Patient denied any fever chills denied any cough chest x-ray did not show any significant abnormality patient is not in heart failure doesn't have any elevated JVD BNP is not significantly elevated. Patient does have history of coronary disease patient had similar symptoms of shortness of breath in the past in which she was treated as angina Levaquin to and the patient understood stent at that time because of which patient is is concerned and came to the year patient doesn't have any symptoms of shortness of breath saturating 100% on 2 L may not require any oxygen at this time. Patient used to smoke in the past quit smoking years ago. Patient EKG showed intraventricular block without any significant acute ST-T wave changes troponin was done which was negative ER ph ysician wanted me to admit the patient for monitoring for 2 more sets of troponins. Patient denied any chest pain my suspicion is low for pulmonary embolism as his shortness of breath is only brief and completely resolved at this time. Patient does have history of atrial fibrillation may have had an episode of A. fib which led to shortness of breath. She is presently sinus rhythm 01/03/2019 Patient underwent stress test which was negative for any inducible ischemia and patient was cleared for discharge although patient's creatinine remains high as he received Lasix yesterday near them hoping it will improve because of elevated creatinine and this being acute and this can you lisinopril and blood patient's blood pressure is low in systolics of 90s although patient may require a 10 need ed down the line if he has proteinuria secondary to diabetic nephropathy. Patient's metformin will be discontinued as well patient blood sugars are within normal limits that this medication and counseling the patient is acute renal failure cannot continue this for now. Basic metabolic profile will be repeated and patient is expected date to have improved serum creatinine Avenue after which patient can be started on metformin if his creatinine doesn't improve patient probably can be started on Januvia at the time. His episode of shortness of breath is probably related to an anxiety episode are may be an episode of paroxysmal A. fib PHYSICAL EXAMINATION: GENERAL: The patient is alert and oriented x3, not in any acute distress. Well developed, well nourished. HEENT: Pupils are round and equally reacting to light. EOMI. No scleral icterus. No conjunctival pallor. Normocephalic, atraumatic. No pharyngeal erythema. No thyromegaly. CARDIOVASCULAR: S1 and S2 present. No murmurs, rubs, or gallops. PULMONARY: Chest is clear to auscultation, no wheezing or crackles. ABDOMEN: Soft, nontender, nondistended, normoactive bowel sounds. No palpable organomegaly. MUSCULOSKELETAL: No joint swelling or deformity. EXTREMITIES: No cyanosis, clubbing, or pedal edema. NEUROLOGICAL: Gross neurological examination did not reveal any focal deficits. SKIN: No rashes. For rest of the for chronic medical problems hospitalization course please refer to my HPI from yesterday Patient Condition at Discharge: Fair Plan - Discharge Summary Discharge Rx Participant: No New Discharge Prescriptions: Discontinued metFORMIN HCL [Glucophage] 500 mg PO DAILY Lisinopril [Zestril] 5 mg PO DAILY #90 tab No Action Citalopram Hydrobromide [CeleXA] 40 mg PO DAILY Apixaban [Eliquis] 5 mg PO BID #0 Discharge Medication List Citalopram Hydrobromide [CeleXA] 40 mg PO DAILY 03/14/16 [History] Apixaban [Eliquis] 5 mg PO BID #0 01/08/18 [Rx] Follow up Appointment(s)/Referral(s): Jw Ruby MD [Primary Care Provider] - 3 Days Ambulatory/Diagnostic Orders: Basic Metabolic Panel [LAB.AMB] Time Frame: 3 Days, Location: None Selected Discharge Disposition: HOME SELF-CARE
== END 2019-06-05 13:55 | disposition home or self-care (01) ==
LOC: EC 14:55 → 1SOBS 16:49
PROVIDERS: ADMIT Internal Medicine; ATTEND Internal Medicine
DX: R06.02 Shortness of breath (principal); N17.9 Acute kidney failure, unspecified; E87.2 Acidosis; E11.9 Type 2 diabetes mellitus without complications; E87.5 Hyperkalemia; T46.4X5A Adverse effect of angiotensin-converting-enzyme inhibitors, initial encounter; F32.9 Major depressive disorder, single episode, unspecified; I10 Essential (primary) hypertension; I25.10 Atherosclerotic heart disease of native coronary artery without angina pectoris; I25.2 Old myocardial infarction; I45.4 Nonspecific intraventricular block; I48.19 Other persistent atrial fibrillation; Z79.01 Long term (current) use of anticoagulants; Z79.02 Long term (current) use of antithrombotics/antiplatelets; Z79.82 Long term (current) use of aspirin; Z79.84 Long term (current) use of oral hypoglycemic drugs; Z79.899 Other long term (current) drug therapy; Z87.891 Personal history of nicotine dependence; Z95.0 Presence of cardiac pacemaker; Z95.5 Presence of coronary angioplasty implant and graft; Z80.9 Family history of malignant neoplasm, unspecified; Z98.42 Cataract extraction status, left eye; Z96.1 Presence of intraocular lens; Z98.890 Other specified postprocedural states
CPT/HCPCS: 93005 ×2; 96374; 99285; 36415; 93017; 93306; 85379; 83880; 80061; 80053; 80048; 83735; 84484 ×2; 85025; 85610; 85730; 71046; 78452; G0378 ×2; A9500; J1940; J1245

== ENCOUNTER 2019-07-27 09:26 | Day surgery (SDC) | payer MEDICARE ==
[~2019-07-27 09:26] MED LIST changes: +ALPRAZolam 0.25 MG TAB PO PRN; +ALPRAZolam 0.5 MG TAB PO PRN; +ASPIRIN 325 MG TAB PO STA; +ATORVASTATIN 80 MG TAB PO STA; +NITROGLYCERIN SL TABS 0.4 MG TAB SUBLINGUAL PRN; +SODIUM CHLORIDE 0.9% 1,000 ML in EMPTY BAG 1 BAG IV ONE; -ceFAZolin 1,000 MG in SODIUM CHLORIDE 0.9% IRRIGATIO 250 ML IRRIGATION ONE; -ceFAZolin IN SWFI 2 GM/20 ML SYRINGE IVP ONE
[2019-07-27] MEDS ORDERED: SODIUM CHLORIDE 0.9% 1,000 ML IV ONE (09:45)
[2019-07-27] MEDS ORDERED: LISINOPRIL 5 MG TAB PO STA (09:51)
[2019-07-27] MEDS ORDERED: VERAPAMIL 2.5 MG/ML 2 ML AMP ONE (10:43)
[2019-07-27] MEDS ORDERED: LIDOCAINE 1% INJ 10MG/ML (20 ML MDV) ONE (10:43)
[2019-07-27] MEDS ORDERED: IV FLUID CONTINUATION 900 ML IV ONE (10:44)
[2019-07-27] MEDS ORDERED: MIDAZOLAM 2 MG/2 ML VIAL IV ONE (11:05)
[2019-07-27] MEDS ORDERED: LIDOCAINE 1% INJ 10MG/ML (20 ML MDV) SQ ONE (11:12)
[2019-07-27] MEDS ORDERED: VERAPAMIL SYRINGE (5 MG/10 ML) INTRAARTER ONE (11:14)
[2019-07-27] MEDS ORDERED: HEPARIN SODIUM 1,000 UN/ML (10ML VL) ONE (11:15)
[2019-07-27] MEDS: HEPARIN SODIUM 1,000 UN/ML (10ML VL) IV ONE ×4 (11:16→12:46)
--- NOTE | 2019-07-27 11:44 | P.HPCAR ---
History of Present Illness H&P Date: 07/27/19 This is a 84-year-old gentleman with history of hypertension and hypercholesteremia ischemic heart disease with a previous stent placement of the left anterior descending coronary artery. Patient was recently seen in the office with complaints of exertional chest pain and shortness of breath. The s ymptoms are similar to what he had prior to the previous stent placement. Patient is advised to have a cardiac catheterization for definitive diagnosis. Patient fully understood the risks and benefits of the procedure Review of Systems As per the chart Physical Exam Vitals: Vital Signs Resp BP Pulse Ox 07/27/19 09:45 18 145/86 98 Intake and Output 07/26/19 07/27/19 07/27/19 22:59 06:59 14:59 Intake Total 200 Balance 200 Intake: IV 200 GENERAL EXAM: Patient is alert and oriented and doesn't appear to be in any acute distress HEENT: Normocephalic. Normal reaction of pupils, equal size, normal range of extraocular motion. No erythema or exudates in the throat. NECK: No masses, no nuchal rigidity. CHEST: No chest wall deformity. LUNGS: Equal air entry with no crackles or wheeze. HEART: S1 and S2 normal. Soft systolic murmur ABDOMEN: No hepatosplenomegaly, normal bowel sounds, no guarding or rigidity. SKIN: No rashes CENTRAL NERVOUS SYSTEM: No focal deficits. EXTREMITIES: No cyanosis, clubbing or edema. Past Medical History Past Medical History: Asthma, Coronary Artery Disease (CAD), Diabetes Mellitus, Eye Disorder, GERD/Reflux, Hypertension, Myocardial Infarction ([place]) Additional Past Medical History / Comment(s): See Dr Galo's H&P, vertigo/balance issues. past fall w/ rib fx. 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 "bad left knee", no rx for diabetes-contoled with wt loss/occ watches diet, Last Myocardial Infarction Date:: 2010 History of Any Multi-Drug Resistant Organisms: None Reported Past Surgical History: Heart Catheterization With Stent, Orthopedic Surgery, Pacemaker Additional Past Surgical History / Comment(s): lt eye lens implant, laser eye sx L eye,rt shoulder rotator cuff repair, 3 cardiac stents Past Anesthesia/Blood Transfusion Reactions: Motion Sickness Date of Last Stent Placement:: 05/2019 Type of Cardiac Device: Permanent Pacemaker Device Placement Date:: 2017 Smoking Status: Former smoker - Past Family History Father Family Medical History: Cancer Mother Family Medical History: Cancer Brother(s) Family Medical History: Cancer, Myocardial Infarction ([place]) Sister(s) Family Medical History: Cancer Physical Examination Vital Signs Resp BP Pulse Ox 07/27/19 09:45 18 145/86 98 Intake and Output 07/26/19 07/27/19 07/27/19 22:59 06:59 14:59 Intake Total 200 Balance 200 Intake: IV 200 Physical Exam: GENERAL EXAM: Patient is alert and oriented and doesn't appear to be in any acute distress HEENT: Normocephalic. Normal reaction of pupils, equal size, normal range of extraocular motion. No erythema or exudates in the throat. NECK: No masses, no nuchal rigidity. CHEST: No chest wall deformity. LUNGS: Equal air entry with no crackles or wheeze. HEART: S1 and S2 normal. Systolic murmur.. ABDOMEN: No hepatosplenomegaly, normal bowel sounds, no guarding or rigidity. SKIN: No rashes CENTRAL NERVOUS SYSTEM: No focal deficits. EXTREMITIES: No cyanosis, clubbing or edema. Results Current Medications Generic Name Dose Route Start Last Admin Trade Name Freq PRN Reason Stop Dose Admin Alprazolam 0.25 mg 07/26/19 06:25 Xanax PO Q6HR PRN Mild Anxiety Alprazolam 0.5 mg 07/26/19 06:25 Xanax PO Q6HR PRN Moderate Anxiety Nitroglycerin 0.4 mg 07/26/19 06:25 Nitrostat SUBLINGUAL Q5M PRN Chest Pain Intake and Output 07/26/19 07/27/19 07/27/19 22:59 06:59 14:59 Intake Total 200 Balance 200 Intake: IV 200 EKG Interpretations (text) Pacer rhythm Assessment and Plan (1) Exertional angina Current Visit: Yes Status: Acute Code(s): I20.8 - OTHER FORMS OF ANGINA PECTORIS SNOMED Code(s): 177537221 (2) Atrial fibrillation Current Visit: No Status: Acute Code(s): I48.91 - UNSPECIFIED ATRIAL FIBRILLATION SNOMED Code(s): 81418405 (3) CAD (coronary artery disease) Current Visit: No Status: Acute Code(s): I25.10 - ATHSCL HEART DISEASE OF [place] CORONARY ARTERY W/O ANG PCTRS SNOMED Code(s): 03498144 (4) History of pacemaker Current Visit: No Status: Acute Code(s): Z95.0 - PRESENCE OF CARDIAC PACEMAKER SNOMED Code(s): 428139584 Plan: We'll proceed with cardiac catheterization for definitive diagnosis. Further recommends will depend upon the cardiac catheterization
[2019-07-27] MEDS ORDERED: fentaNYL (PF) 50 MCG/ML 2 ML AMP ONE (11:48)
--- NOTE | 2019-07-27 11:49 | P.CARDCATH ---
Date of Procedure: 07/27/19 Preoperative Diagnosis: Exertional chest pain and shortness of breath Postoperative Diagnosis: Suspicious lesion with in-stent stenosis in the mid LAD Procedure(s) Performed: Left heart catheterization without left ventriculography Description of Procedure: HISTORY: This is a 84-year-old gentleman with history of chronic atrial fibrillation, permanent pacemaker implantation and also coronary artery disease with previous stent placement of the mid LAD. Patient was recently seen in the office with complaints of exertional chest pain and shortness of breath, chest similar to the symptoms had prior to the stent placement. Patient is advised to have cardiac catheterization for definitive diagnosis CONSENT:I have discussed the risks, benefits and alternative therapies for the above-mentioned procedure and for both sedation/analgesia as well as necessary blood product administration, if indicated, as they pertain to this patient. The patient has indicated understanding and acceptance of the risks and procedures discussed. [] PROCEDURE: Patient was brought to the lab in a fasting state. Patient was given some IV sedation. The right wrist is infiltrated with lidocaine and right radial artery was entered using Seldinger technique. A 6-Latvian catheter was left in place and selective coronary arteriography was performed. Patient tolerated the procedure well. Patient is found to have suspicion lesion in the mid LAD with in-stent stenosis. Dr. Garcia is going to evaluate and if necessary will do FFR. Conscious Sedation: Versed 1mg Fentanyl 0 g Duration 29minutes HEMODYNAMICS: The aortic pressure is about 144/85. Left ventricular end- diastolic pressure is about 5-10. There was no gradient across the aortic valve SELECTIVE CORONARY ARTERIOGRAPHY: LEFT MAIN: Heavily calcified vessels. No Sigmund obstructive disease THE LEFT ANTERIOR DESCENDING CORONARY ARTERY: Calcified vessel. There is suspicious in-stent stenosis involving mid LAD p robably in the range of 60-70% THE LEFT CIRCUMFLEX AND IS CORONARY ARTERY: Good caliber vessel and calcified free of any significant occlusive disease THE RIGHT CORONARY ARTERY:. He was treated dominant vessel free of any significant occlusive disease. There is mild obstructive disease involving the distal branches LEFT VENTRICULOGRAPHY:. Not performed FINAL IMPRESSION:. Suspicious lcritical lesion involving the mid LAD within the stent PLAN: Proceed with possible stenting of the mid LAD. May do FFR to assess the significance before stenting PROGNOSIS: Fair
[2019-07-27] MEDS ORDERED: fentaNYL (PF) 50 MCG/ML 2 ML AMP IVP ONE (11:50)
[2019-07-27] MEDS ORDERED: NITROGLYCERIN 1000MCG/10ML SYRINGE INTRACORON ONE (12:20)
[2019-07-27] MEDS ORDERED: IOPAMIDOL-370 125ML BTL INJ ONE (12:40)
[2019-07-27] MEDS ORDERED: IOPAMIDOL-370 100ML BTL INJ ONE (12:40)
[2019-07-27] MEDS ORDERED: CLOPIDOGREL 75 MG TAB ONE (12:42)
[2019-07-27] MEDS ORDERED: CLOPIDOGREL 75 MG TAB PO ONE (12:46)
[2019-07-27] MEDS ORDERED: RX INFO: IV CONTRAST WAS GIVEN 1 EACH MISC MISCELLANE PRN (12:51)
[2019-07-27] MEDS ORDERED: MAG HYDROX/AL HYDROX/SIMETH 30 ML CUP PO PRN (12:51)
[2019-07-27] MEDS ORDERED: NITROGLYCERIN SL TABS 0.4 MG TAB SUBLINGUAL PRN (12:51)
[2019-07-27] MEDS ORDERED: ZOLPIDEM 5 MG TAB PO PRN (12:51)
[2019-07-27] MEDS ORDERED: ATROPINE SULFATE 0.1 MG/ML 10ML SYRINGE IV PRN (12:51)
[2019-07-27] MEDS ORDERED: SODIUM CHLORIDE 0.9% 1,000 ML IV SCH (13:00)
--- NOTE | 2019-07-27 13:10 | PTCA ---
PERCUTANEOUSTRANS CORORONARY ANGIOGRAPHY Mr. Ramirez is an 84-year-old male with known history of atrial fibrillation, permanent pacemaker implantation, history of coronary artery disease who presented with progressive dyspnea, underwent cardiac catheterization by Dr. Galo, was found to have critical stenosis involving the mid LAD at the site of the prior stenting. In view of that, recommendation was made regarding angioplasty and stenting. The procedure as well as the risks and the complications were discussed with the patient who is in full understanding and agreement. PROCEDURE: Initially a 6-[place] EBU 3.75 and subsequently 6-[place] FL3.5 guiding catheter were used. After cannulating the left main a 0.014 balanced medium weight J-wire was advanced across the lesion positioned distally then a 2.5 x 12 mm Trek balloon was advanced and multiple inflations at maximum 14 atmospheres were done. Because of a poor backup, the guiding catheter was removed and a 6-[place] FR4 guiding catheter introduced in the system. After cannulating the left main, the BMW J wire was advanced, positioned distally. Subsequently a 2.5 x 15 mm Xience Diann stent was deployed post dilated at 18 atmospheres. After removing the balloon, a 2.5 x 12 NC Trek balloon was advanced and one inflation at 16 atmospheres was done. After the last inflation, after appropriate wait, the balloon and the guidewire were withdrawn back in the guiding catheter. Images were obtained repeated. Those images reveal stable successful stenting. At that point, the guiding catheter, the balloon and the guidewire were removed. The sheath was removed. Hemostasis was obtained with deployment of a TR band. There was no immediate complication. Patient was returned to his room in stable condition. Of note, the patient had no symptoms of chest discomfort. He received a total of 10,000 units of intravenous heparin as well as oral loading dose of clopidogrel. RESULTS: Successful stenting of the mid left anterior descending artery with reduction of stenosis from 80% to 0%. RECOMMENDATION: Patient be continued on aspirin, Plavix, beta adrian, ADINA inhibitor, statin. The importance of dual antiplatelet treatment were discussed with the patient and his family and they are in full understanding and agreement. His aspirin will be stopped in 4 weeks and he will be continued on Plavix and Eliquis. Duration of procedure is 43 minutes. MMODL / IJN: [id number] /
[2019-07-27 16:36] LABS: Glucose,Whole Blood 118 mg/dL (75-99)
[2019-07-27 20:26] LABS: Glucose,Whole Blood 103 mg/dL (75-99)
[2019-07-28 06:08] LABS: Glucose,Whole Blood 98 mg/dL (75-99)
[2019-07-28 06:52] LABS: Calcium 8.7 mg/dL (8.4-10.2); Potassium 4.7 mmol/L (3.5-5.1)
[2019-07-28 08:26] VITALS: BP 150/78; PULSE 60; RESP 18; TEMP 98.4
[2019-07-28] MEDS ORDERED: ATORVASTATIN 40 MG TAB PO SCH (09:00)
[2019-07-28] MEDS ORDERED: LISINOPRIL 5 MG TAB PO SCH (09:00)
[2019-07-28] MEDS ORDERED: ASPIRIN 81 MG PO SCH (09:00)
[2019-07-28] MEDS ORDERED: CITALOPRAM HYDROBROMIDE 20 MG TAB PO SCH (09:00)
[2019-07-28 10:19] VITALS: BMI 27.1
[2019-07-28 12:00] LABS: Glucose,Whole Blood 73 mg/dL (75-99)
[2019-07-28] MEDS ORDERED: CLOPIDOGREL 75 MG TAB PO SCH (12:52)
--- NOTE | 2019-07-28 14:22 | P.PN ---
Subjective Progress Note Date: 07/28/19 Principal diagnosis: CAD s/p LAD stenting PROGRESS NOTE 07/28/19 This is a 84-year-old gentleman with history of smoking history, HTN, hyperlipidemia, chronic atrial fib, PPM and CAD s/P mid LAD stenting who presented in the office with complaints of exertional chest pain and shortness of breath. Pt then underwent cardiac cath with additional mid LAD stenting in 07/27/2019. Patient here and doing well with no current complaints of chest pain, chest pressure, shortness of breath or palpitations. RIGHT RADIAL access site is clean dry intact with no bleeds or hematoma, bruising is noted. Right wrist has good pulse. Pt up and ambulated with ease. Patient anticipating discharge and states he feels well. Patient also has chronic atrial fibrilla tion/PPM and is anticoagulated with Eliquis 5 mg twice daily. Now taking ASA and plavix for stent protection. VSS, 98% on RA. Paced on tele monitors. PHYSICAL EXAMINATION: HEENT: Head is atraumatic, normocephalic. Pupils are equal, round. Sclerae anicteric. Conjunctivae are clear. Mucous membranes of the mouth are moist. Neck is supple. There is no jugular venous distention. No carotid bruit is heard. No thyromegaly. LUNGS: Clear to auscultation no wheezes, rales or rhonchi. No chest wall tenderness is noted on palpation or with deep breathing. HEART: Regular rate and rhythm without murmurs, rubs or gallops. S1 and S2 heard. ABDOMEN: Abdominal exam revealed normal bowel sounds. The abdomen was soft, non- tender, and without masses, organomegaly, or appreciable enlargement of the abdominal aorta. EXTREMITIES: Examination of the extremities revealed easily palpable radial, femoral and pedal pulses. There was no cyanosis, clubbing or edema. No calf tenderness noted. VASCULAR: Radial and dorsalis pedis pulses palpated, no evidence of clubbing. NEUROLOGIC: Patient is awake, alert and oriented x3. There were no obvious focal neurologic abnormalities. RIGHT RADIAL ACCESS SITE: CDI, no bleeds or hematoma. Bruising noted. Good pulse. LAB DATA: No new labs. Old labs WNL. FINAL IMPRESSION: 1. CAD s/p PCI to LAD 2. S/P PPM 3. Chronic Atrial fibrillation 4. Hypertension 5. Smoking History, none currently PLAN: Patient to continue same all medical/medication regime. Patient to continue with Eliquis 5 mg twice daily for anticoagulation for atrial fibrillation. Patient to also continue with Plavix and low-dose aspirin for PCI protection. Patient to follow-up in office within [address] Pali. FISHER for discharge from a cardiology standpoint. MT home. Advise bleed precautions. Objective - Vital Signs Vital signs: Vital Signs Temp 98.4 F 07/28/19 08:00 Pulse 60 07/28/19 08:00 Resp 18 07/28/19 08:00 BP 150/78 07/28/19 08:00 Pulse Ox 99 07/28/19 08:00 Intake & Output 07/27/19 07/28/19 07/28/19 18:59 06:59 18:59 Intake Total 800 1360 100 Balance 800 1360 100 Weight 87.997 kg 88.3 kg 88.3 kg Intake: IV 800 Intake, IV Titration 1000 Amount Sodium Chloride 0.9% 1, 1000 000 ml @ 100 mls/hr IV . Q[facility]H [facility] Rx#:[id number] Oral 360 100 Other: # Voids 3 - Labs CBC & Chem 7: 07/28/19 06:20 Labs: Abnormal Lab Results - Last 24 Hours (Table) 07/27/19 07/27/19 07/28/19 Range/Units 16:35 20:24 11:58 POC Glucose (mg/dL) 118 H 103 H 73 L (75-99) mg/dL
== END 2019-07-28 14:05 | disposition home or self-care (01) ==
LOC: CATHCVL 09:26 → 3SCARD 14:00 → CATHCVL 07-28 14:05
PROVIDERS: ATTEND Internal Medicine Cardiovascular Disease
DX: I25.118 Atherosclerotic heart disease of native coronary artery with other forms of angina pectoris (principal); I25.84 Coronary atherosclerosis due to calcified coronary lesion; T82.855A Stenosis of coronary artery stent, initial encounter; I11.9 Hypertensive heart disease without heart failure; E78.00 Pure hypercholesterolemia, unspecified; E78.5 Hyperlipidemia, unspecified; Z95.5 Presence of coronary angioplasty implant and graft; J45.909 Unspecified asthma, uncomplicated; Z95.0 Presence of cardiac pacemaker; E11.9 Type 2 diabetes mellitus without complications; K21.9 Gastro-esophageal reflux disease without esophagitis; I48.21 Permanent atrial fibrillation; Z91.81 History of falling; I25.2 Old myocardial infarction; Z87.891 Personal history of nicotine dependence; H57.9 Unspecified disorder of eye and adnexa; Z82.49 Family history of ischemic heart disease and other diseases of the circulatory system; Z79.02 Long term (current) use of antithrombotics/antiplatelets; Z79.82 Long term (current) use of aspirin; Z79.01 Long term (current) use of anticoagulants; Z79.899 Other long term (current) drug therapy
CPT/HCPCS: 93458; 85347; 80048; C9600; C1769 ×2; C1887 ×3; C1725 ×2; C1874; C1894; J2250; J2001; J3010; J1644; Q9967 ×2

== ENCOUNTER → 2020-07-03 | Outpatient (CLI) | payer MEDICARE ==
--- NOTE | 2020-07-03 12:23 | XR ---
EXAMINATION TYPE: XR knee complete bilateral DATE OF EXAM: 07/03/2020 COMPARISON: NONE HISTORY: Pain TECHNIQUE: Three views are submitted. FINDINGS: The patellofemoral joint and medial compartment of the knee joint bilaterally with mild to moderate c hanges on the right and severe changes on the left. Associated patellofemoral joint arthropathy. Hype rtrophic spurring noted. Vascular calcification seen. Osseous structures are intact. No acute fractu re seen. IMPRESSION: 1. 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
== END | disposition home or self-care (01) ==
LOC: RADXRMAIN 10:59
PROVIDERS: ATTEND Family Medicine
DX: M17.0 Bilateral primary osteoarthritis of knee (principal)

== ENCOUNTER 2020-10-06 15:30 | Emergency (ER) | payer MEDICARE ==
--- NOTE | 2020-10-06 16:30 | XR ---
EXAMINATION TYPE: XR ribs LT w pa chest xray DATE OF EXAM: 10/06/2020 CLINICAL HISTORY: Shortness of breath and chest pain after falling injury one week ago. TECHNIQUE: Single frontal view of the chest is obtained. A frontal and oblique images left-sided ribs . COMPARISON: Prior chest x-ray June 04, 2019. FINDINGS: There is chronic parenchymal changes bilaterally without suspicious new focal air space op acity, pleural effusion, or pneumothorax seen. The cardiac silhouette size is mildly enlarged with s tim lead right-sided pacemaker redemonstrated. Clinical clips right upper quadrant are redemonstrat ed. There is atherosclerotic and ectatic thoracic aorta. The osseous structures remaining intact. IMPRESSION: Chronic changes without new acute pulmonary process.
--- NOTE | 2020-10-06 17:06 | ED ---
Fall HPI - General Chief Complaint: Fall Stated Complaint: Needs XRAY Time Seen by Provider: 10/06/20 16:43 Source: patient Mode of arrival: ambulatory - History of Present Illness Initial Comments: Patient is an 85-year-old male with history of diabetes, heart disease, presenting to the emergency department for evaluation of left-sided rib pain after he fell one week ago. Patient states he woke up in the middle of the night and went to roll over but accidentally rolled right onto his hardwood floor ground. Patient states he got right back up and went back to bed. He sta eliseo over the past week he has been having increased soreness of his left lateral and anterior ribs. He states it hurts when he coughs or takes in a deep breath. He states it hurts to turn his upper body. He states he went to his PCPs office today for evaluation and they recommended coming into the ER for x-rays. He denies any fevers or chills. He denies any other injuries from this fall. He did not hit his head. He has no further complaints at this time. Upon arrival to the ER, his vital signs are stable. - Related Data Home Medications Medication Instructions Recorded Confirmed Aspirin [Adult Low Dose Aspirin EC] 81 mg PO DAILY 07/20/19 07/27/19 Citalopram Hydrobromide 40 mg PO DAILY 07/20/19 07/27/19 [Citalopram HBr] Iron(Dose Unknown) 1 tab PO DAILY 07/20/19 07/20/19 lisinopriL [Zestril] 5 mg PO DAILY 07/20/19 07/27/19 Previous Rx's Medication Instructions Recorded Apixaban [Eliquis] 5 mg PO BID #0 01/08/18 Clopidogrel [Plavix] 75 mg PO DAILY #90 tablet 07/28/19 Allergies Allergy/AdvReac Type Severity Reaction Status Date / Time No Known Allergies Allergy Verified 10/06/20 15:47 Review of Systems ROS Statement: Those systems with pertinent positive or pertinent negative responses have been documented in the HPI. ROS Other: All systems not noted in ROS Statement are negative. Past Medical History Past Medical History: Coronary Artery Disease (CAD), Diabetes Mellitus, Eye Disorder, Hypertension, Myocardial Infarction ([place]) Additional Past Medical History / Comment(s): See Dr Galo's H&P. past cataracts, vertigo/balance issues. past fall w/ rib fx. 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 Last Myocardial Infarction Date:: 2010 History of Any Multi-Drug Resistant Organisms: None Reported Past Surgical History: Heart Catheterization With Stent, Orthopedic Surgery, Pacemaker Additional Past Surgical History / Comment(s): lt eye lens implant, laser eye sx L eye,rt shoulder rotator cuff repair, 2 cardiac stents Past Anesthesia/Blood Transfusion Reactions: Motion Sickness Date of Last Stent Placement:: 2010 Type of Cardiac Device: Permanent Pacemaker Device Placement Date:: 2017 Past Psychological History: Depression Smoking Status: Former smoker Past Alcohol Use History: None Reported Past Drug Use History: None Reported - Past Family History Father Family Medical History: Cancer Mother Family Medical History: Cancer Brother(s) Family Medical History: Cancer, Myocardial Infarction ([place]) Sister(s) Family Medical History: Cancer General Exam - General Exam Comments Initial Comments: GENERAL: Patient is well-developed and well-nourished. Patient is nontoxic and in no acute distress. HEAD: Atraumatic, normocephalic. EYES: Pupils equal round and reactive to light, extraocular movements intact, sclera anicteric, conjunctiva are normal. Eyelids were unremarkable. ENT: Nares patent, oropharynx clear without exudates. Moist mucous membranes. NECK: Normal range of motion, supple without lymphadenopathy or JVD. No midline tenderness. LUNGS: Unlabored respirations. Breath sounds clear to auscultation bilaterally and equal. No wheezes rales or rhonchi. HEART: Regular rate and rhythm without murmurs, rubs or gallops. ABDOMEN: Soft, nontender, normoactive bowel sounds. No guarding, no rebound. No masses appreciated. : Deferred MUSCULOSKELETAL: Normal extremities with adequate strength and normal range of motion, no pitting or edema. No clubbing or cyanosis. Patient has pain with palpation of the left anterior middle ribs, also on the lateral aspect as well. There is no bruising to the area. He does have pain with deep inhalation. NEUROLOGICAL: Patient is alert and oriented x 3. Motor and sensory are also intact. Cranial nerves II through XII grossly intact. Symmetrical smile. Normal speech, normal gait. PSYCH: Normal mood, normal affect. SKIN: Warm, Dry, normal turgor, no rashes or lesions noted. Limitations: no limitations Course Vital Signs 10/06/20 15:41 Temperature 97.8 F Pulse Rate 65 Respiratory 22 Rate Blood Pressure 122/73 O2 Sat by Pulse 100 Oximetry Medical Decision Making - Medical Decision Making Patient is an 85-year-old male here for left anterior and lateral rib pain after he fell one week ago. He was sent in by his PCPs office for x-rays. X-rays today of the lungs show chronic changes, no acute process of the ribs. Patient does have significant pain with palpation of these ribs. I discussed with him this is most likely a bone contusion. We discussed deep breathing exercises throughout the day. He will take Tylenol or Motrin for any discomfort. He can also use ice to the area. He is in agreement with this plan of care. We'll for discharge. Return parameters were discussed with the patient and he verbalized understanding. He can follow up with his PCP. Case discussed with Dr. Hathaway. - EKG Data EKG Comments: Electronic ventricular pacemaker, no acute process. Ventricular rate 61, QRS duration 166, QT 506. Disposition Clinical Impression: Fall, Contusion of rib on left side Disposition: HOME SELF-CARE Condition: Stable Instructions (If sedation given, give patient instructions): Rib Contusion (ED) Additional Instructions: Please return to the Emergency Department if symptoms worsen or any other concerns. X-rays today show no acute fractures of the ribs. This is most likely a bone bruise. Please perform deep breathing exercises, 5 deep breaths, each hour during the day while you are awake, to help prevent pneumonia. Follow-up with your PCPs office. Is patient prescribed a controlled substance at d/c from ED?: No Referrals: Jw Ruby MD [Primary Care Provider] - 1-2 days Time of Disposition: 17:05
[2020-10-06 17:35] VITALS: BP 147/71; PULSE 63; RESP 18; TEMP 98
== END 2020-10-06 17:34 | disposition home or self-care (01) ==
LOC: EC 15:30
DX: S20.212A Contusion of left front wall of thorax, initial encounter (principal); I25.10 Atherosclerotic heart disease of native coronary artery without angina pectoris; E11.9 Type 2 diabetes mellitus without complications; I10 Essential (primary) hypertension; I25.2 Old myocardial infarction; F32.9 Major depressive disorder, single episode, unspecified; Z87.891 Personal history of nicotine dependence; W19.XXXA Unspecified fall, initial encounter
CPT/HCPCS: 93005; 99283

== ENCOUNTER 2020-11-14 17:30 | Observation (INO) | payer MEDICARE ==
[2020-11-14 18:05] LABS: Glucose,Whole Blood 94 mg/dL (75-99)
[2020-11-14] MEDS ORDERED: SODIUM CHLORIDE 0.9% 1,000 ML IV STA (18:13)
--- NOTE | 2020-11-14 18:13 | ED ---
General Adult HPI - General Chief complaint: Syncope Stated complaint: hypoglycemia, weakness Time Seen by Provider: 11/14/20 18:11 Source: patient, family Mode of arrival: wheelchair Limitations: no limitations - History of Present Illness Initial comments: Patient presents to the ED (sent from his PCP's clinic) with his for evaluation. Patient states that he has felt generally weak and very tired/sleepy for the past week or so. Patient also states that his blood glucose readings have been low over the past week or so. Patient denies taking any hypoglycemic medications, and he states that he has been eating as per usual. Patient reportedly had a syncopal episode while at his PCPs clinic today, and he also reportedly had one while in the ED triage area. Patient's states that he has had similar episodes multiple times this week. Patient denies having any pain, fever or chills, headache, focal numbness/weakness/neuro deficit, visual changes, chest pain or pressure, dyspnea, cough or cold symptoms, palpitations, abdominal pain, nausea/vomiting/diarrhea, bloody or melanotic stool, dysuria/hematuria/urinary /urinary symptoms, leg or calf swelling or pain, or any other symptoms or complaints. Patient states that he has been taking all of his medications as prescribed. - Related Data Home Medications Medication Instructions Recorded Confirmed Citalopram Hydrobromide 40 mg PO DAILY 07/20/19 11/14/20 [Citalopram HBr] lisinopriL [Zestril] 5 mg PO DAILY 07/20/19 11/14/20 Apixaban [Eliquis] 10 mg PO DAILY 11/14/20 11/14/20 Cholecalciferol [Vitamin D3 (25 25 mcg PO DAILY 11/14/20 11/14/20 Mcg = 1000 Iu)] Melatonin 5 mg PO HS PRN 11/14/20 11/14/20 Allergies Allergy/AdvReac Type Severity Reaction Status Date / Time No Known Allergies Allergy Verified 11/14/20 19:28 Review of Systems ROS Statement: Those systems with pertinent positive or pertinent negative responses have been documented in the HPI. ROS Other: All systems not noted in ROS Statement are negative. Past Medical History Past Medical History: Coronary Artery Disease (CAD), Diabetes Mellitus, Eye Disorder, Hypertension, Myocardial Infarction ([place]) Additional Past Medical History / Comment(s): See Dr Galo's H&P. past cataracts, vertigo/balance issues. past fall w/ rib fx. 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 Last Myocardial Infarction Date:: 2010 History of Any Multi-Drug Resistant Organisms: None Reported Past Surgical History: Heart Catheterization With Stent, Orthopedic Surgery, Pacemaker Additional Past Surgical History / Comment(s): lt eye lens implant, laser eye sx L eye,rt shoulder rotator cuff repair, 2 cardiac stents Past Anesthesia/Blood Transfusion Reactions: Motion Sickness Date of Last Stent Placement:: 2010 Type of Cardiac Device: Permanent Pacemaker Device Placement Date:: 2017 Past Psychological History: Depression Smoking Status: Former smoker Past Alcohol Use History: None Reported Past Drug Use History: None Reported - Past Family History Father Family Medical History: Cancer Mother Family Medical History: Cancer Brother(s) Family Medical History: Cancer, Myocardial Infarction ([place]) Sister(s) Family Medical History: Cancer General Exam Limitations: no limitations General appearance: alert, in no apparent distress Head exam: Present: atraumatic, normocephalic Eye exam: Present: normal appearance, PERRL, EOMI ENT exam: Present: mucous membranes moist Neck exam: Present: other (Trachea is in midline). Absent: tenderness Respiratory exam: Present: normal lung sounds bilaterally. Absent: respiratory distress, wheezes, rales, rhonchi, stridor Cardiovascular Exam: Present: regular rate, normal rhythm, normal heart sounds, other (Normal radial pulses bilaterally) GI/Abdominal exam: Present: soft. Absent: distended, tenderness, guarding Extremities exam: Absent: tenderness, pedal edema, calf tenderness Neurological exam: Present: alert, oriented X3, CN II-XII intact. Absent: motor sensory deficit Psychiatric exam: Present: normal affect, normal mood Skin exam: Present: warm, dry, intact, normal color Course Vital Signs 11/14/20 11/14/20 18:01 19:10 Temperature 97.9 F Pulse Rate 60 60 Respiratory 20 18 Rate Blood Pressure 88/56 119/74 O2 Sat by Pulse 98 97 Oximetry - Reevaluation(s) Reevaluation #1: 11/14/20 20:14 Patient denies development of any new symptoms while in the ED. Patient states that he feels "a whole lot better" now. Patient's blood pressure has now improved. Patient and family are aware the patient's test results, and they all agree with hospital admission at this time for further evaluation and monitoring. 11/14/20 20:23 Case, H&P, test results and ED management were discussed with Dr. Briscoe. He accepts hospital admission. He asks to have orthostatic vital signs documented. He also requests cardiology consultation. He has no further recommendation at this time. EKG Findings - EKG Comments: EKG Findings:: Ventricular paced rhythm, ventricular rate of 60 bpm, QRS du ration of 156 ms Medical Decision Making - Medical Decision Making Patient's blood she was borderline low on presentation to the ED, but his blood pressure has normalized with IV fluid hydration. Patient's labs and imaging studies are fairly unremarkable. Patient's troponin is negative. Patient's lactic acid level is normal. Patient's blood glucose level is normal. Given the patient's reported syncopal episodes, will admit the patient to the hospital for further evaluation and cardiac monitoring. Dr. Briscoe has accepted hospital admission. - Lab Data Result diagrams: 11/14/20 18:30 11/14/20 18:30 Lab Results 11/14/20 11/14/20 11/14/20 Range/Units 18:04 18:30 18:30 WBC 5.5 (3.8-10.6) k/uL RBC 4.15 L (4.30-5.90) m/uL Hgb 13.5 (13.0-17.5) gm/dL Hct 38.6 L (39.0-53.0) % MCV 92.9 (80.0-100.0) fL MCH 32.4 (25.0-35.0) pg MCHC 34.9 (31.0-37.0) g/dL RDW 12.8 (11.5-15.5) % Plt Count 182 (150-450) k/uL MPV 7.1 Neutrophils % 63 % Lymphocytes % 24 % Monocytes % 6 % Eosinophils % 4 % Basophils % 1 % Neutrophils # 3.5 (1.3-7.7) k/uL Lymphocytes # 1.3 (1.0-4.8) k/uL Monocytes # 0.3 (0-1.0) k/uL Eosinophils # 0.3 (0-0.7) k/uL Basophils # 0.0 (0-0.2) k/uL PT 10.3 (9.0-12.0) sec INR 1.0 (<1.2) APTT 24.0 (22.0-30.0) sec Sodium (137-145) mmol/L Potassium (3.5-5.1) mmol/L Chloride (98-107) mmol/L Carbon Dioxide (22-30) mmol/L Anion Gap mmol/L BUN (9-20) mg/dL Creatinine (0.66-1.25) mg/dL Est GFR (CKD-EPI)AfAm (>60 ml/min/1.73 sqM) Est GFR (CKD-EPI)NonAf (>60 ml/min/1.73 sqM) Glucose (74-99) mg/dL POC Glucose (mg/dL) 94 (75-99) mg/dL POC Glu Emergency Room Physician Assistant ID [facility] Plasma Lactic Acid Michael (0.7-2.0) mmol/L Calcium (8.4-10.2) mg/dL Magnesium (1.6-2.3) mg/dL Total Bilirubin (0.2-1.3) mg/dL AST (17-59) U/L ALT (4-49) U/L Alkaline Phosphatase (38-126) U/L Troponin I (0.000-0.034) ng/mL NT-Pro-B Natriuret Pep pg/mL Total Protein (6.3-8.2) g/dL Albumin (3.5-5.0) g/dL TSH (0.465-4.680) mIU/L 11/14/20 11/14/20 11/14/20 Range/Units 18:30 18:30 18:30 WBC (3.8-10.6) k/uL RBC (4.30-5.90) m/uL Hgb (13.0-17.5) gm/dL Hct (39.0-53.0) % MCV (80.0-100.0) fL MCH (25.0-35.0) pg MCHC (31.0-37.0) g/dL RDW (11.5-15.5) % Plt Count (150-450) k/uL MPV Neutrophils % % Lymphocytes % % Monocytes % % Eosinophils % % Basophils % % Neutrophils # (1.3-7.7) k/uL Lymphocytes # (1.0-4.8) k/uL Monocytes # (0-1.0) k/uL Eosinophils # (0-0.7) k/uL Basophils # (0-0.2) k/uL PT (9.0-12.0) sec INR (<1.2) APTT (22.0-30.0) sec Sodium 136 L (137-145) mmol/L Potassium 4.8 (3.5-5.1) mmol/L Chloride 104 (98-107) mmol/L Carbon Dioxide 27 (22-30) mmol/L Anion Gap 5 mmol/L BUN 31 H (9-20) mg/dL Creatinine 1.17 (0.66-1.25) mg/dL Est GFR (CKD-EPI)AfAm 66 (>60 ml/min/1.73 sqM) Est GFR (CKD-EPI)NonAf 57 (>60 ml/min/1.73 sqM) Glucose 91 (74-99) mg/dL POC Glucose (mg/dL) (75-99) mg/dL POC Glu Emergency Room Physician Assistant ID Plasma Lactic Acid Michael (0.7-2.0) mmol/L Calcium 9.6 (8.4-10.2) mg/dL Magnesium 1.8 (1.6-2.3) mg/dL Total Bilirubin 0.4 (0.2-1.3) mg/dL AST 19 (17-59) U/L ALT 8 (4-49) U/L Alkaline Phosphatase 86 (38-126) U/L Troponin I <0.012 (0.000-0.034) ng/mL NT-Pro-B Natriuret Pep 1220 pg/mL Total Protein 6.5 (6.3-8.2) g/dL Albumin 4.0 (3.5-5.0) g/dL TSH 1.260 (0.465-4.680) mIU/L 11/14/20 Range/Units 18:30 WBC (3.8-10.6) k/uL RBC (4.30-5.90) m/uL Hgb (13.0-17.5) gm/dL Hct (39.0-53.0) % MCV (80.0-100.0) fL MCH (25.0-35.0) pg MCHC (31.0-37.0) g/dL RDW (11.5-15.5) % Plt Count (150-450) k/uL MPV Neutrophils % % Lymphocytes % % Monocytes % % Eosinophils % % Basophils % % Neutrophils # (1.3-7.7) k/uL Lymphocytes # (1.0-4.8) k/uL Monocytes # (0-1.0) k/uL Eosinophils # (0-0.7) k/uL Basophils # (0-0.2) k/uL PT (9.0-12.0) sec INR (<1.2) APTT (22.0-30.0) sec Sodium (137-145) mmol/L Potassium (3.5-5.1) mmol/L Chloride (98-107) mmol/L Carbon Dioxide (22-30) mmol/L Anion Gap mmol/L BUN (9-20) mg/dL Creatinine (0.66-1.25) mg/dL Est GFR (CKD-EPI)AfAm (>60 ml/min/1.73 sqM) Est GFR (CKD-EPI)NonAf (>60 ml/min/1.73 sqM) Glucose (74-99) mg/dL POC Glucose (mg/dL) (75-99) mg/dL POC Glu Emergency Room Physician Assistant ID Plasma Lactic Acid Michael 0.8 (0.7-2.0) mmol/L Calcium (8.4-10.2) mg/dL Magnesium (1.6-2.3) mg/dL Total Bilirubin (0.2-1.3) mg/dL AST (17-59) U/L ALT (4-49) U/L Alkaline Phosphatase (38-126) U/L Troponin I (0.000-0.034) ng/mL NT-Pro-B Natriuret Pep pg/mL Total Protein (6.3-8.2) g/dL Albumin (3.5-5.0) g/dL TSH (0.465-4.680) mIU/L - Radiology Data Radiology results: report reviewed (Noncontrast head CT: Cerebral atrophy, no acute intracranial abnormality, no change; chest x-ray: Minimal pulmonary fibrotic changes, no significant change compared to old exam) Disposition Clinical Impression: Syncope, Fatigue Disposition: ADMITTED IP TO THIS HOSP Condition: Stable Is patient prescribed a controlled substance at d/c from ED?: No Referrals: Jw Ruby MD [Primary Care Provider] - 1-2 days Time of Disposition: 20:24
--- NOTE | 2020-11-14 18:44 | XR ---
EXAMINATION TYPE: XR chest 1V portable DATE OF EXAM: 11/14/2020 COMPARISON: 10/06/2020 HISTORY: Short of breath. Pain. TECHNIQUE: Single view FINDINGS: There is no heart failure nor confluent pneumonic infiltrate. Costophrenic angles are clear . There is right axillary pacemaker. There are chest leads. There is minimal scarring or subsegmental atelectasis left lung base. IMPRESSION: Minimal pulmonary fibrotic changes. No significant change compared to old exam.
[2020-11-14 18:45] LABS: Basophils % (A) 1 %; Eosinophils # (A) 0.3 k/uL (0-0.7); Eosinophils % (A) 4 %; HCT 38.6 % (39.0-53.0); HGB 13.5 gm/dL (13.0-17.5); Lymphocytes # (A) 1.3 k/uL (1.0-4.8); Lymphocytes % (A) 24 %; MCH 32.4 pg (25.0-35.0); MCHC 34.9 g/dL (31.0-37.0); MCV 92.9 fL (80.0-100.0); Mean Platelet Volume 7.1; Monocytes # (A) 0.3 k/uL (0-1.0); Monocytes % (A) 6 %; Neutrophils # (A) 3.5 k/uL (1.3-7.7); Neutrophils % (A) 63 %; Platelet Count 182 k/uL (150-450); RBC 4.15 m/uL (4.30-5.90); RDW 12.8 % (11.5-15.5); WBC 5.5 k/uL (3.8-10.6)
[2020-11-14 18:58] LABS: Calcium 9.6 mg/dL (8.4-10.2); Magnesium 1.8 mg/dL (1.6-2.3); Potassium 4.8 mmol/L (3.5-5.1); Prothrombin Time 10.3 sec (9.0-12.0); Total Bilirubin 0.4 mg/dL (0.2-1.3); Total Protein 6.5 g/dL (6.3-8.2)
--- NOTE | 2020-11-14 19:12 | CT ---
EXAMINATION TYPE: CT brain wo con DATE OF EXAM: 11/14/2020 COMPARISON: 05/15/2018 HISTORY: Syncope and weakness. CT DLP: 1078.4 mGycm Automated exposure control for dose reduction was used. There is cerebral atrophy. There is no mass effect nor midline shift. There is no sign of intracrania l hemorrhage. Calvarium is intact. IMPRESSION: Cerebral atrophy. No acute intracranial abnormality. No change.
[2020-11-14] MEDS ORDERED: SODIUM CHLORIDE 0.9% 1,000 ML IV SCH (20:30)
[2020-11-14 20:56] LABS: Glucose,Whole Blood 73 mg/dL (75-99)
[2020-11-14 21:31] LABS: Glucose,Whole Blood 85 mg/dL (75-99)
[2020-11-14 23:00] LABS: Amorphous Sediment,Urine Rare /hpf; Appearance,Urine Cloudy (Clear); Bacteria,Urine Occasional /hpf; Bilirubin,Urine Negative (Negative); Blood,Urine Negative (Negative); Color,Urine Light Yellow; Glucose,Urine (UA) Negative (Negative); Hyaline Casts,Urine 7 /lpf (0-2); Ketones,Urine Negative (Negative); Leukocyte Esterase,Urine Large (Negative); Mucus,Urine Rare /hpf; Nitrite,Urine Negative (Negative); Protein,Urine Negative (Negative); RBC,Urine 1 /hpf (0-5); Specific Gravity,Urine 1.018 (1.001-1.035); Squamous Epithelial Cell,Urine 6 /hpf (0-4); Urobilinogen,Urine <2.0 mg/dL (<2.0); WBC,Urine 52 /hpf (0-5)
[2020-11-14] MEDS ORDERED: MELATONIN 5 MG TABLET PO PRN (23:22)
[2020-11-15 02:59] VITALS: RESP 18
[2020-11-15 06:49] LABS: ALT 6 U/L (4-49); AST 18 U/L (17-59); African American GFR (CKD) 68 (>60 ml/min/1.73 sqM); Albumin 3.3 g/dL (3.5-5.0); Albumin/Globulin Ratio 1.4; Alkaline Phosphatase 70 U/L (38-126); Anion Gap 2 mmol/L; Bilirubin,Unconjugated 0.5 mg/dL (0.0-1.1); Blood Urea Nitrogen 29 mg/dL (9-20); Calcium 8.7 mg/dL (8.4-10.2); Carbon Dioxide 28 mmol/L (22-30); Chloride 107 mmol/L (98-107); Globulin 2.4 g/dL; Glucose 83 mg/dL (74-99); Magnesium 1.7 mg/dL (1.6-2.3); Non-African American GFR(CKD) 59 (>60 ml/min/1.73 sqM); Potassium 4.5 mmol/L (3.5-5.1); Sodium 137 mmol/L (137-145); Total Bilirubin 0.4 mg/dL (0.2-1.3); Total Protein 5.7 g/dL (6.3-8.2)
[2020-11-15] MEDS ORDERED: APIXABAN 5 MG TAB PO SCH (09:00)
[2020-11-15] MEDS ORDERED: FAMOTIDINE 20 MG/2 ML VIAL IV SCH (09:00)
[2020-11-15] MEDS ORDERED: CITALOPRAM HYDROBROMIDE 20 MG TAB PO SCH (09:00)
[2020-11-15 09:19] LABS: Basophils # (A) 0.03 X 10*3/uL (0.00-0.10); Basophils % (A) 0.6 %; Eosinophils # (A) 0.27 X 10*3/uL (0.04-0.35); Eosinophils % (A) 5.1 %; HCT 34.6 % (39.6-50.0); HGB 11.2 g/dL (13.0-17.0); Lymphocytes # (A) 1.76 X 10*3/uL (0.90-5.00); Lymphocytes % (A) 33.3 %; MCH 30.7 pg (27.0-32.0); MCHC 32.4 g/dL (32.0-37.0); MCV 94.8 fL (80.0-97.0); Mean Platelet Volume 10.1 fL (9.5-12.2); Monocytes # (A) 0.46 X 10*3/uL (0.20-1.00); Monocytes % (A) 8.7 %; Neutrophils # (A) 2.73 X 10*3/uL (1.80-7.70); Neutrophils % (A) 51.7 %; Platelet Count 151 X 10*3/uL (140-440); RBC 3.65 X 10*6/uL (4.40-5.60); RDW 12.8 % (11.5-14.5); WBC 5.28 X 10*3/uL (4.50-10.00)
--- NOTE | 2020-11-15 14:46 | P.HPIM ---
History of Present Illness 85-year-old male came in with compensative generalized weakness and low blood pressure. Patient had a syncopal episode. Patient is found to have low blood pressure patient is also on lisinopril at home 5 mg daily. Patient did lose weight. Patient blood sugars are low normal at this time. Patient denied any fever chills. Patient denied any seizure-like activity loss of bowel or bladder continence. Patient does have history of coronary artery disease with stents in the past. Patient had an echocardiogram in 2019 which showed normal ejection fraction without any significant valvular abnormalities the time. Patient does have a pacer which is being interrogated at this time. Patient received IV fluids overnight after which patient is doing much better at this time. Review of Systems REVIEW OF SYSTEMS: CONSTITUTIONAL: As mentioned in HPI HEENT: No recent visual problems or hearing problems. Denied any sore throat. CARDIOVASCULAR: No chest pain, orthopnea, PND, no palpitations. PULMONARY: No shortness of breath, no cough, no hemoptysis. GASTROINTESTINAL: No diarrhea, no nausea, no vomiting, no abdominal pain. NEUROLOGICAL: No headaches, no weakness, no numbness. HEMATOLOGICAL: Denies any bleeding or petechiae. GENITOURINARY: Denies any burning micturition, frequency, or urgency. MUSCULOSKELETAL/RHEUMATOLOGICAL: Denies any joint pain, swelling, or any muscle pain. ENDOCRINE: Denies any polyuria or polydipsia. The rest of the 14-point review of systems is negative. Past Medical History Past Medical History: Coronary Artery Disease (CAD), Diabetes Mellitus, Eye Disorder, Hypertension, Myocardial Infarction ([place]) Additional Past Medical History / Comment(s): See Dr Galo's H&P. past cataracts, vertigo/balance issues. past fall w/ rib fx. 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 Last Myocardial Infarction Date:: 2010 History of Any Multi-Drug Resistant Organisms: None Reported Past Surgical History: Heart Catheterization With Stent, Orthopedic Surgery, Pacemaker Additional Past Surgical History / Comment(s): lt eye lens implant, laser eye sx L eye,rt shoulder rotator cuff repair, 2 cardiac stents Past Anesthesia/Blood Transfusion Reactions: Motion Sickness Date of Last Stent Placement:: 2010 Type of Cardiac Device: Permanent Pacemaker Device Placement Date:: 2017 Past Psychological History: Depression Smoking Status: Former smoker Past Alcohol Use History: None Reported Additional Past Alcohol Use History / Comment(s): chewed tobacco quit 34 years ago, smoked cigar occas quit 20 years ago Past Drug Use History: None Reported - Past Family History Father Family Medical History: Cancer Mother Family Medical History: Cancer Brother(s) Family Medical History: Cancer, Myocardial Infarction ([place]) Sister(s) Family Medical History: Cancer Medications and Allergies Home Medications Medication Instructions Recorded Confirmed Type Citalopram Hydrobromide 40 mg PO DAILY 07/20/19 11/14/20 History [Citalopram HBr] Apixaban [Eliquis] 10 mg PO DAILY 11/14/20 11/14/20 History Cholecalciferol [Vitamin D3 (25 25 mcg PO DAILY 11/14/20 11/14/20 History Mcg = 1000 Iu)] Melatonin 5 mg PO HS PRN 11/14/20 11/14/20 History Allergies Allergy/AdvReac Type Severity Reaction Status Date / Time No Known Allergies Allergy Verified 11/14/20 19:28 Physical Exam Vitals: Vital Signs Temp Pulse Pulse Pulse Pulse Resp BP 11/15/20 08:00 97.7 F 68 65 64 18 11/15/20 02:00 98.2 F 65 18 11/15/20 01:55 54 L 16 11/14/20 23:43 98.0 F 54 L 16 11/14/20 22:21 60 18 105/67 11/14/20 21:27 11/14/20 21:01 11/14/20 19:10 60 18 119/74 11/14/20 18:01 97.9 F 60 20 88/56 BP BP BP BP Pulse Ox 11/15/20 08:00 104/70 105/60 103/55 98 11/15/20 02:00 121/72 98 11/15/20 01:55 11/14/20 23:43 125/72 94 L 11/14/20 22:21 98 11/14/20 21:27 119/83 105/67 137/86 11/14/20 21:01 97 11/14/20 19:10 97 11/14/20 18:01 98 Intake and Output 11/14/20 11/15/20 11/15/20 22:59 06:59 14:59 Other: Voiding Method Toilet Toilet # Voids 2 Weight 81.647 kg 81.647 kg PHYSICAL EXAMINATION: GENERAL: The patient is alert and oriented x3, not in any acute distress. Well developed, well nourished. HEENT: Pupils are round and equally reacting to light. EOMI. No scleral icterus. No conjunctival pallor. Normocephalic, atraumatic. No pharyngeal erythema. No thyromegaly. CARDIOVASCULAR: S1 and S2 present. No murmurs, rubs, or gallops. PULMONARY: Chest is clear to auscultation, no wheezing or crackles. ABDOMEN: Soft, nontender, nondistended, normoactive bowel sounds. No palpable organomegaly. MUSCULOSKELETAL: No joint swelling or deformity. EXTREMITIES: No cyanosis, clubbing, or pedal edema. NEUROLOGICAL: Gross neurological examination did not reveal any focal deficits. SKIN: No rashes. Results CBC & Chem 7: 11/15/20 05:45 11/15/20 05:45 Labs: Abnormal Lab Results - Last 24 Hours (Table) 11/14/20 11/14/20 11/14/20 Range/Units 18:30 18:30 20:54 RBC 4.15 L (4.30-5.90) m/uL Hgb (13.0-17.0) g/dL Hct 38.6 L (39.0-53.0) % Sodium 136 L (137-145) mmol/L BUN 31 H (9-20) mg/dL POC Glucose (mg/dL) 73 L (75-99) mg/dL Total Protein (6.3-8.2) g/dL Albumin (3.5-5.0) g/dL Ur Leukocyte Esterase (Negative) Urine WBC (0-5) /hpf Urine WBC Clumps (None) /hpf Ur Squamous Epith Cells (0-4) /hpf Amorphous Sediment (None) /hpf Urine Bacteria (None) /hpf Hyaline Casts (0-2) /lpf Urine Mucus (None) /hpf 11/14/20 11/15/20 11/15/20 Range/Units 22:28 05:45 05:45 RBC 3.65 L (4.30-5.90) m/uL Hgb 11.2 L (13.0-17.0) g/dL Hct 34.6 L (39.0-53.0) % Sodium (137-145) mmol/L BUN 29 H (9-20) mg/dL POC Glucose (mg/dL) (75-99) mg/dL Total Protein 5.7 L (6.3-8.2) g/dL Albumin 3.3 L (3.5-5.0) g/dL Ur Leukocyte Esterase Large H (Negative) Urine WBC 52 H (0-5) /hpf Urine WBC Clumps Few H (None) /hpf Ur Squamous Epith Cells 6 H (0-4) /hpf Amorphous Sediment Rare H (None) /hpf Urine Bacteria Occasional H (None) /hpf Hyaline Casts 7 H (0-2) /lpf Urine Mucus Rare H (None) /hpf Microbiology - Last 24 Hours (Table) 11/14/20 22:28 Urine Culture - Preliminary Urine,Voided Thrombosis Risk Factor Assmnt - Choose All That Apply Each Factor Represents 1 point: Acute MD, Obesity (BMI >25) Each Risk Factor Represents 3 Points: Age 75 years or older Other congenital or acquired thrombophilia - If yes, enter type in comment: No Thrombosis Risk Factor Assessment Total Risk Factor Score: 5 Thrombosis Risk Factor Assessment Level: High Risk Assessment and Plan Plan: -Syncope: Secondary to low blood pressure patient may have a competent of deh ydration as well as patient received IV fluids with significant improvement in his a dizziness. Patient was hypotensive on admission patient is feeling better. Cardiology is according echo echocardiogram if echocardiogram is is within normal limits patient will be discharged today. I discontinued lisinopril -Episodes of hypoglycemia: Patient actually doesn't have hypoglycemia patient blood sugars are low normal patient was asked to eat frequent meals. This is basically because of his a significant weight loss recently -Weight loss: Further evaluation as an outpatient -Coronary artery disease -Type 2 diabetes mellitus -Hypertension Patient most probably will be discharged today syncope is secondary to hypotension lisinopril is being discontinued
--- NOTE | 2020-11-15 14:47 | P.DS ---
Providers Date of admission: 11/14/20 20:26 Attending physician: Lb Briscoe MD Consults: 11/14/20 20:25 Consult Physician Urgent Consulting Provider: Nelson Del Valle Consult Reason/Comments: syncope Do you want consulting provider notified?: Yes Primary care physician: Jw Ruby Hospital Course: Please refer to my history of present illness for further details Patient Condition at Discharge: Stable Plan - Discharge Summary Discharge Rx Participant: No New Discharge Prescriptions: Discontinued lisinopriL [Zestril] 5 mg PO DAILY No Action Citalopram Hydrobromide [Citalopram HBr] 40 mg PO DAILY Apixaban [Eliquis] 10 mg PO DAILY Melatonin 5 mg PO HS PRN PRN Reason: Insomnia Cholecalciferol [Vitamin D3 (25 Mcg = 1000 Iu)] 25 mcg PO DAILY Discharge Medication List Citalopram Hydrobromide [Citalopram HBr] 40 mg PO DAILY 07/20/19 [History] Apixaban [Eliquis] 10 mg PO DAILY 11/14/20 [History] Cholecalciferol [Vitamin D3 (25 Mcg = 1000 Iu)] 25 mcg PO DAILY 11/14/20 [History] Melatonin 5 mg PO HS PRN 11/14/20 [History] Follow up Appointment(s)/Referral(s): Jw Ruby MD [Primary Care Provider] - 3 Days Discharge Disposition: HOME SELF-CARE
[2020-11-15 15:14] VITALS: BP 107/64; PULSE 60; TEMP 97.6
--- NOTE | 2020-11-15 15:41 | P.CRDCN ---
History of Present Illness Consult date: 11/15/20 Requesting physician: Lb E Sheet Reason for Consult (text): syncope Chief complaint: weakness, fatigue, dizziness, syncope History of present illness: This is a pleasant 85-year-old gentleman with a past medical history of CAD status post stenting to the LAD 2, chronic atrial fibrillation with tachybradycardia syndrome status post permanent pacemaker. Presented to the emergency department as advised by his primary care physician for syncope. According to the patient over the last week or so he's been quite tired and sleeping a significant amount of time. He is apparently been having episodes of significant dizziness upon standing where he is falling. He does not recall losing consciousness however it was reported by the apparently that he did in fact lose consciousness. She said he's been very sleepy and falling asleep during conversations over the past week. He denies a change in his diet or fluid intake. Upon presentation blood pressure was low at 88 systolic. EKG showed atrial fibrillation with ventricular paced rhythm. Troponin negative 1 and NT proBNP of 1220. Chest x-ray showed mild pulmonary fibrotic changes. EKG and rhythm strip shows pacemaker functioning appropriately and this was last interrogated about 3 or 4 months ago according to the patient. Patient was given IV fluids in the ER and continues to have 0.9 normal saline going at 60 miles an hour. Patient does admit to weight loss over the last couple of years, unintentional. Home medications currently include Eliquis 10 mg daily, melatonin 5 mg by mouth daily at bedtime, citalopram 40 mg by mouth daily and vitamin D3. Coronavirus PCR was negative. Upon examination patient is resting comfortably in bed. He feels a bit better today. Blood pressure is better. Past Medical History Past Medical History: Coronary Artery Disease (CAD), Diabetes Mellitus, Eye Disorder, Hypertension, Myocardial Infarction ([place]) Additional Past Medical History / Comment(s): See Dr Galo's H&P. past cataracts, vertigo/balance issues. past fall w/ rib fx. 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 Last Myocardial Infarction Date:: 2010 History of Any Multi-Drug Resistant Organisms: None Reported Past Surgical History: Heart Catheterization With Stent, Orthopedic Surgery, Pacemaker Additional Past Surgical History / Comment(s): lt eye lens implant, laser eye sx L eye,rt shoulder rotator cuff repair, 2 cardiac stents Past Anesthesia/Blood Transfusion Reactions: Motion Sickness Date of Last Stent Placement:: 2010 Type of Cardiac Device: Permanent Pacemaker Device Placement Date:: 2017 Past Psychological History: Depression Smoking Status: Former smoker Past Alcohol Use History: None Reported Additional Past Alcohol Use History / Comment(s): chewed tobacco quit 34 years ago, smoked cigar occas quit 20 years ago Past Drug Use History: None Reported - Past Family History Father Family Medical History: Cancer Mother Family Medical History: Cancer Brother(s) Family Medical History: Cancer, Myocardial Infarction ([place]) Sister(s) Family Medical History: Cancer Medications and Allergies Home Medications Medication Instructions Recorded Confirmed Type Citalopram Hydrobromide 40 mg PO DAILY 07/20/19 11/14/20 History [Citalopram HBr] Apixaban [Eliquis] 10 mg PO DAILY 11/14/20 11/14/20 History Cholecalciferol [Vitamin D3 (25 25 mcg PO DAILY 11/14/20 11/14/20 History Mcg = 1000 Iu)] Melatonin 5 mg PO HS PRN 11/14/20 11/14/20 History Allergies Allergy/AdvReac Type Severity Reaction Status Date / Time No Known Allergies Allergy Verified 11/14/20 19:28 Physical Exam Vitals: Vital Signs Temp Pulse Pulse Pulse Pulse Resp BP 11/15/20 08:00 97.7 F 68 65 64 18 11/15/20 02:00 98.2 F 65 18 11/15/20 01:55 54 L 16 11/14/20 23:43 98.0 F 54 L 16 11/14/20 22:21 60 18 105/67 11/14/20 21:27 11/14/20 21:01 11/14/20 19:10 60 18 119/74 11/14/20 18:01 97.9 F 60 20 88/56 BP BP BP BP Pulse Ox 11/15/20 08:00 104/70 105/60 103/55 98 11/15/20 02:00 121/72 98 11/15/20 01:55 11/14/20 23:43 125/72 94 L 11/14/20 22:21 98 11/14/20 21:27 119/83 105/67 137/86 11/14/20 21:01 97 11/14/20 19:10 97 11/14/20 18:01 98 Intake and Output 11/14/20 11/15/20 11/15/20 22:59 06:59 14:59 Other: Voiding Method Toilet Toilet # Voids 2 Weight 81.647 kg 81.647 kg PHYSICAL EXAMINATION: This is a 85-year-old male in no apparent distress at the time of my examination. VITAL SIGNS: Blood pressure 103/55, heart rate 64, respirations 18, temp 97.7F. Patient is 98 % on room air. HEENT: Head is atraumatic, normocephalic. Pupils are equal, round. Sclerae anicteric. Conjunctivae are clear. Mucous membranes of the mouth are moist. Neck is supple. There is no elevated jugular venous pressure. No carotid bruit is heard. CHEST EXAMINATION: Clear to auscultation bilaterally. No wheezes rales or rhonc hi. Respirations even and nonlabored. HEART EXAMINATION: Heart regular, positive S1 and S2. No S3. No S4. With a systolic murmur. ABDOMEN: Soft, nontender. Bowel sounds are heard. No organomegaly noted. EXTREMITIES: 2+ peripheral pulses with no evidence of peripheral edema and no calf tenderness noted. NEUROLOGIC EXAMINATION: Patient is awake, alert and oriented x3. Short-term memory loss. Results 11/15/20 05:45 11/15/20 05:45 Cardiac Enzymes 11/14/20 11/14/20 11/15/20 Range/Units 18:30 18:30 05:45 AST 19 18 (17-59) U/L Troponin I <0.012 (0.000-0.034) ng/mL Coagulation 11/14/20 Range/Units 18:30 PT 10.3 (9.0-12.0) sec APTT 24.0 (22.0-30.0) sec CBC 11/14/20 11/15/20 Range/Units 18:30 05:45 WBC 5.5 5.28 (3.8-10.6) k/uL RBC 4.15 L 3.65 L (4.30-5.90) m/uL Hgb 13.5 11.2 L (13.0-17.5) gm/dL Hct 38.6 L 34.6 L (39.0-53.0) % Plt Count 182 151 (150-450) k/uL Comprehensive Metabolic Panel 11/14/20 11/15/20 Range/Units 18:30 05:45 Sodium 136 L 137 (137-145) mmol/L Potassium 4.8 4.5 (3.5-5.1) mmol/L Chloride 104 107 (98-107) mmol/L Carbon Dioxide 27 28 (22-30) mmol/L BUN 31 H 29 H (9-20) mg/dL Creatinine 1.17 1.15 (0.66-1.25) mg/dL Glucose 91 83 (74-99) mg/dL Calcium 9.6 8.7 (8.4-10.2) mg/dL Unconjugated Bilirubin 0.5 (0.0-1.1) mg/dL AST 19 18 (17-59) U/L ALT 8 6 (4-49) U/L Alkaline Phosphatase 86 70 (38-126) U/L Total Protein 6.5 5.7 L (6.3-8.2) g/dL Albumin 4.0 3.3 L (3.5-5.0) g/dL Current Medications Generic Name Dose Route Start Last Admin Trade Name Freq PRN Reason Stop Dose Admin Apixaban 5 mg 11/15/20 09:00 Apixaban 5 Mg Tab PO BID LEIF Citalopram Hydrobromide 40 mg 11/15/20 09:00 Citalopram Hydrobromide 20 Mg Tab PO DAILY LEIF Famotidine 20 mg 11/15/20 09:00 Famotidine 20 Mg/2 Ml Vial IV Q12HR LEIF Sodium Chloride 1,000 mls @ 60 mls/hr 11/14/20 20:30 11/14/20 22:20 Saline 0.9% IV 60 mls/hr .[id number] LEIF Administration Melatonin 5 mg 11/14/20 23:22 Melatonin 5 Mg Tablet PO HS PRN Insomnia Intake and Output 11/14/20 11/15/20 11/15/20 22:59 06:59 14:59 Other: Voiding Method Toilet Toilet # Voids 2 Weight 81.647 kg 81.647 kg 11/15/20 05:45 11/15/20 05:45 EKG Interpretations (text) Atrial fibrillation with ventricular paced rhythm Assessment and Plan Assessment: #1 syncope #2 CAD with prior stenting of the LAD 2 #3 hypotension #4 atrial fibrillation, chronic, anticoagulated #5 history of tachybradycardia syndrome, status post permanent pacemaker impl antation Plan: From cardiology perspective we'll obtain a 2-D echo with Doppler to assess cardiac structure and function. We will interrogate pacemaker to ensure there is no malfunction although there does not appear to be. Syncope likely related to hypotension secondary to UTI. From our standpoint if pacemaker interrogation shows no significant abnormalities and echocardiogram is stable patient may be discharged home and follow-up with Dr. Galo in the office. FEATURES EDITOR note has been reviewed, I agree with a documented findings and plan of care. Patient was seen and examined.
[2020-11-15 15:50] LABS: Glucose,Whole Blood 123 mg/dL (75-99)
--- NOTE | 2020-11-15 16:37 | ECHOF ---
Referral Reason:syncope MEASUREMENTS -------- HEIGHT: 177.8 cm WEIGHT: 81.6 kg BP: 103/55 RVIDd: 3.2 cm (< 3.3) IVSd: 1.4 cm (0.6 - 1.1) LVIDd: 4.8 cm (3.9 - 5.3) LVPWd: 1.4 cm (0.6 - 1.1) IVSs: 2.0 cm LVIDs: 2.8 cm LVPWs: 1.9 cm LA Diam: 4.5 cm (2.7 - 3.8) LAESV Index (A-L): 37.09 ml/m Ao Diam: 3.3 cm (2.0 - 3.7) AV Cusp: 2.0 cm (1.5 - 2.6) MV EXCURSION: 23.601 mm (> 18.000) MV EF SLOPE: 101 mm/s (70 - 150) EPSS: 0.6 cm AR PHT: 830 ms RAP: 5.00 mmHg RVSP: 24.03 mmHg FINDINGS -------- Pacerwire seen in RV and RA. This was a technically adequate study. The left ventricular size is normal. There is moderate concentric left ventricular hypertrophy. O verall left ventricular systolic function is low-normal with, an EF between 50 - 55 %. The right ventricle is normal in size. LA is moderately dilated 34-39 ml/m2 The right atrial size is normal. Interatrial and interventricular septum intact. There is mild aortic valve sclerosis. There is mild aortic regurgitation. Mild mitral annular calcification present. Mild mitral regurgitation is present. Mild tricuspid regurgitation present. Right ventricular systolic pressure is normal at < 35 mmHg. Trace/mild (physiologic) pulmonic regurgitation. The aortic root size is normal. IVC Not well visulized. There is no pericardial effusion. CONCLUSIONS -------- 1. Pacerwire seen in RV and RA. 2. There is moderate concentric left ventricular hypertrophy. 3. Overall left ventricular systolic function is low-normal with, an EF between 50 - 55 %. 4. LA is moderately dilated 34-39 ml/m2 5. There is mild aortic valve sclerosis. 6. There is mild aortic regurgitation. 7. Mild mitral regurgitation is present. 8. Mild tricuspid regurgitation present. 9. Trace/mild (physiologic) pulmonic regurgitation. 10. There is no pericardial effusion. ASSOCIATE PUBLISHER: Eden Jacob RDCS
[2020-11-15] MEDS ORDERED: FAMOTIDINE 20 MG TAB PO SCH (21:00)
== END 2020-11-15 16:53 | disposition home or self-care (01) ==
LOC: EC 17:30 → 6NMEDSUR 20:26
PROVIDERS: ADMIT Internal Medicine; ATTEND Internal Medicine
DX: I95.9 Hypotension, unspecified (principal); I25.10 Atherosclerotic heart disease of native coronary artery without angina pectoris; I10 Essential (primary) hypertension; R63.4 Abnormal weight loss; E11.9 Type 2 diabetes mellitus without complications; Z20.822 Contact with and (suspected) exposure to COVID-19; I48.20 Chronic atrial fibrillation, unspecified; I49.5 Sick sinus syndrome; I25.2 Old myocardial infarction; F32.9 Major depressive disorder, single episode, unspecified; H26.9 Unspecified cataract; Z79.01 Long term (current) use of anticoagulants; Z79.4 Long term (current) use of insulin; Z79.899 Other long term (current) drug therapy; Z95.0 Presence of cardiac pacemaker; Z95.5 Presence of coronary angioplasty implant and graft; Z91.81 History of falling; Z87.891 Personal history of nicotine dependence; Z82.49 Family history of ischemic heart disease and other diseases of the circulatory system; Z80.9 Family history of malignant neoplasm, unspecified
CPT/HCPCS: 96374; 96361; 99285; 36415; 94760; 93005; 93306; 83880; 80053; 80048; 80076; 83605; 83735 ×2; 84443; 84484; 85025 ×2; 85610; 85730; 81001; 87086; 87635; 71045; 70450; G0378 ×2

== ENCOUNTER 2021-12-11 03:27 | Observation (INO) | payer MEDICARE ==
[2021-12-11] MEDS ORDERED: SODIUM CHLORIDE 0.9% 1,000 ML IV STA ×3 (03:33→04:36)
[2021-12-11] MEDS ORDERED: ONDANSETRON 4 MG/2 ML VIAL IVP STA (03:33)
[2021-12-11] MEDS ORDERED: PANTOPRAZOLE 40 MG/10 ML VIAL IVP STA (03:34)
--- NOTE | 2021-12-11 03:35 | ED ---
Weakness HPI - General Stated complaint: Fall, dehydration Time Seen by Provider: 12/11/21 03:32 Source: patient, RN notes reviewed, old records reviewed Mode of arrival: EMS Limitations: no limitations - History of Present Illness MD Complaint: generalized weakness, lack of energy, difficulty walking -: days(s) Location: generalized Severity: severe Severity scale (1-10): 9 Consistency: constant Improves with: none Worsens with: none Context: recent illness, history of similar Associated Symptoms: confusion, diaphoresis, loss of appetite, nausea/vomiting, shortness of breath - Related Data Home Medications Medication Instructions Recorded Confirmed Citalopram Hydrobromide 40 mg PO DAILY 07/20/19 11/14/20 [Citalopram HBr] Apixaban [Eliquis] 10 mg PO DAILY 11/14/20 11/14/20 Cholecalciferol [Vitamin D3 (25 25 mcg PO DAILY 11/14/20 11/14/20 Mcg = 1000 Iu)] Melatonin 5 mg PO HS PRN 11/14/20 11/14/20 Allergies Allergy/AdvReac Type Severity Reaction Status Date / Time No Known Allergies Allergy Verified 12/11/21 03:28 Review of Systems ROS Statement: Those systems with pertinent positive or pertinent negative responses have been documented in the HPI. ROS Other: All systems not noted in ROS Statement are negative. Past Medical History Past Medical History: Coronary Artery Disease (CAD), Diabetes Mellitus, Eye Disorder, Hypertension, Myocardial Infarction ([place]) Additional Past Medical History / Comment(s): See Dr Galo's H&P. past cataracts, vertigo/balance issues. past fall w/ rib fx. 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 Last Myocardial Infarction Date:: 2010 History of Any Multi-Drug Resistant Organisms: None Reported Past Surgical History: Heart Catheterization With Stent, Orthopedic Surgery, Pacemaker Additional Past Surgical History / Comment(s): lt eye lens implant, laser eye sx L eye,rt shoulder rotator cuff repair, 2 cardiac stents Past Anesthesia/Blood Transfusion Reactions: Motion Sickness Date of Last Stent Placement:: 2010 Type of Cardiac Device: Permanent Pacemaker Device Placement Date:: 2017 Past Psychological History: Depression Smoking Status: Former smoker Past Alcohol Use History: None Reported Past Drug Use History: None Reported - Past Family History Father Family Medical History: Cancer Mother Family Medical History: Cancer Brother(s) Family Medical History: Cancer, Myocardial Infarction ([place]) Sister(s) Family Medical History: Cancer General Exam Limitations: no limitations General appearance: alert, in no apparent distress Head exam: Present: atraumatic, normocephalic, normal inspection Eye exam: Present: normal appearance, PERRL, EOMI. Absent: scleral icterus, conjunctival injection, periorbital swelling ENT exam: Present: normal exam, mucous membranes moist Neck exam: Present: normal inspection. Absent: tenderness, meningismus, lymphadenopathy Respiratory exam: Present: normal lung sounds bilaterally. Absent: respiratory distress, wheezes, rales, rhonchi, stridor Cardiovascular Exam: Present: regular rate, normal rhythm, normal heart sounds. Absent: systolic murmur, diastolic murmur, rubs, gallop, clicks GI/Abdominal exam: Present: soft, normal bowel sounds. Absent: distended, tenderness, guarding, rebound, rigid Extremities exam: Present: normal inspection, full ROM, normal capillary refill. Absent: tenderness, pedal edema, joint swelling, calf tenderness Back exam: Present: normal inspection Neurological exam: Present: alert, oriented X3, CN II-XII intact Psychiatric exam: Present: normal affect, normal mood Skin exam: Present: warm, dry, intact, normal color. Absent: rash Course Vital Signs 12/11/21 12/11/21 03:28 05:00 Temperature 98.1 F Pulse Rate 62 67 Respiratory 16 16 Rate Blood Pressure 119/71 108/63 O2 Sat by Pulse 98 Oximetry EKG Findings - EKG Comments: EKG Findings:: EKG shows sinus rhythm 59 QRS 90 QTC 478 Medical Decision Making - Lab Data Result diagrams: 12/11/21 03:54 12/11/21 03:54 Lab Results 12/11/21 12/11/21 12/11/21 Range/Units 03:54 03:54 03:54 WBC 8.3 (3.8-10.6) k/uL RBC 4.01 L (4.30-5.90) m/uL Hgb 12.9 L (13.0-17.5) gm/dL Hct 38.3 L (39.0-53.0) % MCV 95.3 (80.0-100.0) fL MCH 32.0 (25.0-35.0) pg MCHC 33.6 (31.0-37.0) g/dL RDW 12.6 (11.5-15.5) % Plt Count 147 L (150-450) k/uL MPV 7.9 Neutrophils % 87 % Lymphocytes % 8 % Monocytes % 4 % Eosinophils % 0 % Basophils % 0 % Neutrophils # 7.2 (1.3-7.7) k/uL Lymphocytes # 0.6 L (1.0-4.8) k/uL Monocytes # 0.4 (0-1.0) k/uL Eosinophils # 0.0 (0-0.7) k/uL Basophils # 0.0 (0-0.2) k/uL PT 10.5 (9.0-12.0) sec INR 1.0 (<1.2) APTT 23.6 (22.0-30.0) sec VBG pH (7.31-7.41) VBG pCO2 (37-51) mmHg VBG HCO3 (24-28) mmol/L Sodium 132 L (137-145) mmol/L Potassium 4.2 (3.5-5.1) mmol/L Chloride 102 (98-107) mmol/L Carbon Dioxide 22 (22-30) mmol/L Anion Gap 8 mmol/L BUN 25 H (9-20) mg/dL Creatinine 1.14 (0.66-1.25) mg/dL Est GFR (CKD-EPI)AfAm 68 (>60 ml/min/1.73 sqM) Est GFR (CKD-EPI)NonAf 59 (>60 ml/min/1.73 sqM) Glucose 140 H (74-99) mg/dL Plasma Lactic Acid Michael (0.7-2.0) mmol/L Calcium 8.3 L (8.4-10.2) mg/dL Phosphorus 3.3 (2.5-4.5) mg/dL Magnesium 1.5 L (1.6-2.3) mg/dL Total Bilirubin 0.8 (0.2-1.3) mg/dL AST 20 (17-59) U/L ALT 9 (4-49) U/L Alkaline Phosphatase 70 (38-126) U/L Troponin I (0.000-0.034) ng/mL Total Protein 6.3 (6.3-8.2) g/dL Albumin 3.6 (3.5-5.0) g/dL Lipase 29 (23-300) U/L Acetone, Qual Negative (Negative) 12/11/21 12/11/21 12/11/21 Range/Units 03:54 03:54 03:54 WBC (3.8-10.6) k/uL RBC (4.30-5.90) m/uL Hgb (13.0-17.5) gm/dL Hct (39.0-53.0) % MCV (80.0-100.0) fL MCH (25.0-35.0) pg MCHC (31.0-37.0) g/dL RDW (11.5-15.5) % Plt Count (150-450) k/uL MPV Neutrophils % % Lymphocytes % % Monocytes % % Eosinophils % % Basophils % % Neutrophils # (1.3-7.7) k/uL Lymphocytes # (1.0-4.8) k/uL Monocytes # (0-1.0) k/uL Eosinophils # (0-0.7) k/uL Basophils # (0-0.2) k/uL PT (9.0-12.0) sec INR (<1.2) APTT (22.0-30.0) sec VBG pH 7.44 H (7.31-7.41) VBG pCO2 34 L (37-51) mmHg VBG HCO3 23 L (24-28) mmol/L Sodium (137-145) mmol/L Potassium (3.5-5.1) mmol/L Chloride (98-107) mmol/L Carbon Dioxide (22-30) mmol/L Anion Gap mmol/L BUN (9-20) mg/dL Creatinine (0.66-1.25) mg/dL Est GFR (CKD-EPI)AfAm (>60 ml/min/1.73 sqM) Est GFR (CKD-EPI)NonAf (>60 ml/min/1.73 sqM) Glucose (74-99) mg/dL Plasma Lactic Acid Michael 1.9 (0.7-2.0) mmol/L Calcium (8.4-10.2) mg/dL Phosphorus (2.5-4.5) mg/dL Magnesium (1.6-2.3) mg/dL Total Bilirubin (0.2-1.3) mg/dL AST (17-59) U/L ALT (4-49) U/L Alkaline Phosphatase (38-126) U/L Troponin I <0.012 (0.000-0.034) ng/mL Total Protein (6.3-8.2) g/dL Albumin (3.5-5.0) g/dL Lipase (23-300) U/L Acetone, Qual (Negative) Disposition Clinical Impression: Dehydration, Hypomagnesemia, Nausea & vomiting, Weakness Disposition: ADMITTED IP TO THIS HOSP Condition: Good Is patient prescribed a controlled substance at d/c from ED?: No Referrals: Jw Ruby MD [Primary Care Provider] - 1-2 days
[2021-12-11] MEDS ORDERED: MORPHINE SULFATE 2 MG/ML SYRINGE IVP STA (03:40)
[2021-12-11 04:07] LABS: Basophils % (A) 0 %; Eosinophils % (A) 0 %; HCT 38.3 % (39.0-53.0); HGB 12.9 gm/dL (13.0-17.5); Lymphocytes # (A) 0.6 k/uL (1.0-4.8); Lymphocytes % (A) 8 %; MCHC 33.6 g/dL (31.0-37.0); MCV 95.3 fL (80.0-100.0); Mean Platelet Volume 7.9; Monocytes # (A) 0.4 k/uL (0-1.0); Monocytes % (A) 4 %; Neutrophils # (A) 7.2 k/uL (1.3-7.7); Neutrophils % (A) 87 %; Platelet Count 147 k/uL (150-450); RBC 4.01 m/uL (4.30-5.90); RDW 12.6 % (11.5-15.5); VBG PH 7.44 (7.31-7.41); WBC 8.3 k/uL (3.8-10.6)
[2021-12-11 04:16] LABS: Partial Thromboplastin Time 23.6 sec (22.0-30.0); Prothrombin Time 10.5 sec (9.0-12.0)
[2021-12-11 04:23] LABS: ALT 9 U/L (4-49); AST 20 U/L (17-59); African American GFR (CKD) 68 (>60 ml/min/1.73 sqM); Albumin 3.6 g/dL (3.5-5.0); Alkaline Phosphatase 70 U/L (38-126); Anion Gap 8 mmol/L; Blood Urea Nitrogen 25 mg/dL (9-20); Calcium 8.3 mg/dL (8.4-10.2); Carbon Dioxide 22 mmol/L (22-30); Chloride 102 mmol/L (98-107); Glucose 140 mg/dL (74-99); Lipase 29 U/L (23-300); Magnesium 1.5 mg/dL (1.6-2.3); Non-African American GFR(CKD) 59 (>60 ml/min/1.73 sqM); Phosphorus 3.3 mg/dL (2.5-4.5); Potassium 4.2 mmol/L (3.5-5.1); Sodium 132 mmol/L (137-145); Total Bilirubin 0.8 mg/dL (0.2-1.3); Total Protein 6.3 g/dL (6.3-8.2)
[2021-12-11] MEDS ORDERED: ONDANSETRON 4 MG/2 ML VIAL IVP PRN (05:42)
[2021-12-11] MEDS ORDERED: MAGNESIUM OXIDE 400 MG TAB PO STA (05:43)
[2021-12-11 06:06] LABS: Appearance,Urine Clear (Clear); Bilirubin,Urine Negative (Negative); Blood,Urine Negative (Negative); Color,Urine Yellow; Glucose,Urine (UA) Negative (Negative); Ketones,Urine Negative (Negative); Leukocyte Esterase,Urine Large (Negative); Mucus,Urine Rare /hpf; Nitrite,Urine Negative (Negative); PH, Urine 5.5 (5.0-8.0); Protein,Urine Trace (Negative); RBC,Urine 2 /hpf (0-5); Specific Gravity,Urine 1.026 (1.001-1.035); Squamous Epithelial Cell,Urine 1 /hpf (0-4); Urobilinogen,Urine <2.0 mg/dL (<2.0); WBC,Urine 20 /hpf (0-5)
--- NOTE | 2021-12-11 07:23 | XR ---
EXAM: XR Chest, 1 View CLINICAL HISTORY: ITS.REASON XR Reason: fall TECHNIQUE: Frontal view of the chest. COMPARISON: No relevant prior studies available. FINDINGS: Lungs: Unremarkable. No consolidation. Pleural space: Unremarkable. No pneumothorax. Heart: Right-sided chest port in place. Mild cardiomegaly. Mediastinum: Unremarkable. Cholecystectomy clips in the right upper quadrant. Bones/joints: Unremarkable. IMPRESSION: Normal chest x-ray.
--- NOTE | 2021-12-11 07:25 | XR ---
EXAM: XR Pelvis, 1 or 2 Views CLINICAL HISTORY: ITS.REASON XR Reason: fall TECHNIQUE: Frontal view of the pelvis. COMPARISON: No relevant prior studies available. FINDINGS: Bones/joints: Severe degenerative changes of the right hip. Mild degenerative changes of the left hip. No acute fracture. No dislocation. Soft tissues: Unremarkable. IMPRESSION: 1. No acute pelvic fractures. 2. 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
[2021-12-11] MEDS: MAGNESIUM OXIDE 400 MG TAB PO SCH ×2 (10:08→21:23)
[2021-12-11] MEDS: CITALOPRAM HYDROBROMIDE 20 MG TAB PO SCH (11:37)
[2021-12-11] MEDS: APIXABAN 5 MG TAB PO SCH ×2 (11:38→21:23)
--- NOTE | 2021-12-11 13:58 | CT ---
EXAMINATION TYPE: CT brain wo con DATE OF EXAM: 12/11/2021 COMPARISON: 11/14/2020 INDICATION: Weakness, nausea and vomiting, possible stroke DLP: 1075.3 mGycm, Automated exposure control for dose reduction was used. CONTRAST: None CT of the brain is performed utilizing 3 mm thick sections through the posterior fossa and 3 mm thick sections through the remaining calvarium. Study is performed within 24 hours of arrival to the hosp ital. No abnormal hyperdensity is present to suggest an acute intracranial hemorrhage. No mass lesion is evident. No acute infarcts are evident. There is mild periventricular white matter hypodensity which is nonspe cific but could be related to chronic white matter ischemic changes. Note is made of vascular calcifi cation carotid arteries. MRI can be performed as clinically indicated. Ventricles and sulci are prominent for the patient age. Results thickening is the ethmoid air cell region. Remaining paranasal sinuses and mastoid air cells are clear. There is right septal and septal spurring. IMPRESSIONS: 1. Mild periventricular white matter hypodensity which is nonspecific but could be related to micro vascular ischemic change. 2. Atrophy. 3. Exam appears stable 11/14/2020. 4. Follow-up MRI can be performed as clinically indicated.
--- NOTE | 2021-12-11 19:00 | HP ---
HISTORY AND PHYSICAL CHIEF COMPLAINTS: Nausea, vomiting, dehydration and weakness. HISTORY OF PRESENT ILLNESS: This 86-year-old gentleman with a past medical history of CAD, diabetes, hypertension, multiple medical problems, was taken to the ER with generalized weakness, nausea, vomiting and diarrhea as well as dehydration. The patient was unable to provide any history. Most of the history taken from my discussion with staff and review of the chart. PAST MEDICAL HISTORY: Diabetes type 2, hypertension. HOME MEDICATIONS: Reviewed and include: Zestril. Dose and rest of medications reviewed. ALLERGIES: None. Family history, social history and review of systems could not be taken. PHYSICAL EXAMINATION: Pulse is 62, blood pressure 118/70, respirations 16. HEENT: Conjunctivae pale. Oral mucosa is dry. NECK: No JVD. CARDIOVASCULAR: S1, S2 muffled. RESPIRATORY: A few scattered rhonchi. ABDOMEN: Soft, nontender. NERVOUS SYSTEM: Diffusely weak. SKIN: No ulcer, no rash and no bleeding. JOINTS: No active deforming arthropathy. LABS: WBC 19.2, hemoglobin 12.9, sodium 132 UAW 20. ASSESSMENT: 1. Nausea and diarrhea, dehydration. 2. Acute urinary tract infection, present on admission. 3. Dementia. 4. History of coronary artery disease. 5. Diabetes mellitus, type 2. 6. Multiple medical issues. RECOMMENDATIONS AND DISCUSSION: This 86-year-old gentleman who presented with multiple complex medical issues, we will monitor the patient closely. I would recommend empiric antibiotics. Resume the home medications. IV hydration. Also recommend a CT scan of the brain to complete the workup. See orders for details. Prognosis guarded. Further recommendations to follow. MMODL / IJN: [id number] /
[2021-12-11] MEDS: PANTOPRAZOLE 40 MG/10 ML VIAL IV SCH (21:23)
[2021-12-12] MEDS ORDERED: ACETAMINOPHEN TAB 325 MG TAB PO PRN (02:18)
[2021-12-12 07:55] VITALS: RESP 18
[2021-12-12] MEDS: PANTOPRAZOLE 40 MG/10 ML VIAL IV SCH (08:08)
[2021-12-12] MEDS: MAGNESIUM OXIDE 400 MG TAB PO SCH (08:09)
[2021-12-12] MEDS: APIXABAN 5 MG TAB PO SCH (08:09)
[2021-12-12] MEDS: CITALOPRAM HYDROBROMIDE 20 MG TAB PO SCH (08:09)
[2021-12-12 09:00] LABS: HCT 32.5 % (39.6-50.0); HGB 10.5 g/dL (13.0-17.0); MCH 30.5 pg (27.0-32.0); MCHC 32.3 g/dL (32.0-37.0); MCV 94.5 fL (80.0-97.0); Mean Platelet Volume 9.9 fL (9.5-12.2); NRBC Per 100 WBC 0 /100 WBCS (0.0-0.0); Platelet Count 112 X 10*3/uL (140-440); RBC 3.44 X 10*6/uL (4.40-5.60); RDW 12.6 % (11.5-14.5); WBC 4.08 X 10*3/uL (4.50-10.00)
[2021-12-12 09:11] LABS: African American GFR (CKD) 71.1 (60.0-200.0); Anion Gap 11.3 mmol/L (10.00-18.00); BUN/Creat Ratio 15.09 Ratio (12.00-20.00); Blood Urea Nitrogen 16.6 mg/dL (9.0-27.0); Calcium 8.1 mg/dL (8.7-10.3); Carbon Dioxide 21.7 mmol/L (20.0-27.5); Non-African American GFR(CKD) 61.3 (60.0-200.0); Potassium 3.6 mmol/L (3.5-5.5)
[2021-12-12 10:29] LABS: Basophils # (A) 0 X 10*3/uL (0.00-0.10); Basophils % (A) 0 %; Eosinophils # (A) 0 X 10*3/uL (0.04-0.35); Eosinophils % (A) 0 %; Immature Grans, Automated 0.2 %; Lymphocytes # (A) 0.41 X 10*3/uL (0.90-5.00); Monocytes % (A) 7.4 %; Neutrophils # (A) 3.36 X 10*3/uL (1.80-7.70); Neutrophils % (A) 82.4 %; RBC Morphology NORMAL
[2021-12-12 13:19] VITALS: BP 122/67; PULSE 60; TEMP 98.1
--- NOTE | 2021-12-12 17:30 | DS ---
DISCHARGE SUMMARY FINAL DIAGNOSIS: 1. Nausea, diarrhea, dehydration, acute diarrheal illness. 2. Acute urinary tract infection, present on admission, improved. 3. Dementia. 4. History of coronary artery disease. 5. Diabetes mellitus, type 2. 6. Multiple medical issues. DISCHARGE DISPOSITION: The patient will be discharged in stable condition with guarded prognosis. HISTORY OF PRESENT ILLNESS: This 86-year-old gentleman, being followed Dr. Jw Ruby in the outpatient setting, was admitted with nausea, vomiting, diarrhea, possible acute gastroenteritis. He was treated symptomatically. Antibiotics were also given. Patient got better. Patient is keen on going home. X-rays are normal. On exam, vitals are stable. CARDIOVASCULAR: S1, S2 muffled. ABDOMEN: Soft. NERVOUS SYSTEM: No focal deficit. DISCHARGE ADVICE AND MEDICATIONS: 1. Short course of Ceftin 500 mg p.o. b.i.d. for 3 days. 2. Continue the rest of the medications. See medication reconciliation sheet for list of medications. MMODL / IJN: [id number] /
== END 2021-12-12 15:44 | disposition home or self-care (01) ==
LOC: EC 03:27 → 6NMEDSUR 05:41
PROVIDERS: ADMIT Hospitalist; ATTEND Hospitalist
DX: E86.0 Dehydration (principal); R11.2 Nausea with vomiting, unspecified; R06.02 Shortness of breath; R61 Generalized hyperhidrosis; R63.0 Anorexia; R19.7 Diarrhea, unspecified; N39.0 Urinary tract infection, site not specified; E83.42 Hypomagnesemia; F03.90 Unspecified dementia, unspecified severity, without behavioral disturbance, psychotic disturbance, mood disturbance, and anxiety; I25.10 Atherosclerotic heart disease of native coronary artery without angina pectoris; E11.9 Type 2 diabetes mellitus without complications; I10 Essential (primary) hypertension; I25.2 Old myocardial infarction; F32.A Depression, unspecified; Z20.822 Contact with and (suspected) exposure to COVID-19; Z79.01 Long term (current) use of anticoagulants; Z79.899 Other long term (current) drug therapy; Z95.5 Presence of coronary angioplasty implant and graft; Z95.0 Presence of cardiac pacemaker; Z91.81 History of falling; Z87.891 Personal history of nicotine dependence; Z82.49 Family history of ischemic heart disease and other diseases of the circulatory system; Z80.9 Family history of malignant neoplasm, unspecified
CPT/HCPCS: 96376 ×2; 96361 ×3; 96365; 96375; 99285; 36415; 93005; 97162; 97166; 80053; 80048; 82803; 82009; 83605; 83690; 83735; 84100; 84484; 85025 ×2; 85610; 85730; 81001; 87040; 87324; 87086; 87502; 87635; 72170; 71045; 70450; G0378 ×2; J2405; J0696 ×2; J2270; C9113 ×2

== ENCOUNTER 2021-12-16 13:23 | Inpatient (IN) | payer MEDICARE ==
[2021-12-16] MEDS ORDERED: SODIUM CHLORIDE 0.9% 1,000 ML IV STA (13:47)
[2021-12-16] MEDS ORDERED: MORPHINE SULFATE 2 MG/ML SYRINGE IVP STA (13:47)
[2021-12-16] MEDS ORDERED: diphenhydrAMINE 50 MG/ML 1 ML VIAL IVP STA (13:47)
[2021-12-16] MEDS ORDERED: ONDANSETRON 4 MG/2 ML VIAL IVP STA (13:47)
[2021-12-16] MEDS ORDERED: PANTOPRAZOLE 40 MG/10 ML VIAL IVP STA (13:47)
--- NOTE | 2021-12-16 14:11 | ED ---
General Adult HPI - General Source: patient, RN notes reviewed, old records reviewed Mode of arrival: EMS <Jairo Mcmahon - Last Filed: 12/16/21 14:46> <River Hathaway - Last Filed: 12/16/21 17:21> - General Chief complaint: Abdominal Pain Stated complaint: weakness Time Seen by Provider: 12/16/21 13:32 - History of Present Illness Initial comments: Patient is an 86-year-old male with past medical history remarkable for CAD, diabetes, hypertension, MIs with stents as well as a pacemaker who was seen here last week and discharged home presents with continued symptoms of nonspecific abdominal pain, nausea, vomiting, diarrhea. States he feels dehydrated. Has not been able tolerate any oral intake other than some water. Endorses nonbilious, bloody emesis that is frequent throughout the day as well as nonbloody diarrhea. Denies any no sick contacts. Received one of his COVID-19 vaccines but denies any sick contacts. Denies any fevers, chills. Endorses feeling weak. Is uncertain what is causing his symptoms. Please see may have been discharged home to really last time. Describes his abdominal pain is crampy. Primarily in the left upper and left side of his abdomen. Denies any chest pain, shortness of breath, headaches. HAs no other acute complaints at this time. (Jairo Mcmahon) - Related Data Home Medications Medication Instructions Recorded Confirmed Citalopram Hydrobromide 40 mg PO DAILY 07/20/19 12/16/21 [Citalopram HBr] Apixaban [Eliquis] 5 mg PO BID 11/14/20 12/16/21 Previous Rx's Medication Instructions Recorded Acetaminophen Tab [Tylenol] 650 mg PO Q6HR PRN tab 12/12/21 Magnesium Oxide [Mag-Ox] 400 mg PO BID 30 Days #60 tab 12/12/21 Pantoprazole Sodium [Protonix] 40 mg PO DAILY #30 tab 12/12/21 cefUROXime axetiL [Ceftin] 500 mg PO BID 3 Days #6 tab 12/12/21 Allergies Allergy/AdvReac Type Severity Reaction Status Date / Time No Known Allergies Allergy Verified 12/16/21 15:59 Review of Systems ROS Other: All systems not noted in ROS Statement are negative. <Jairo Mcmahon - Last Filed: 12/16/21 14:46> ROS Other: All systems not noted in ROS Statement are negative. <River Hathaway - Last Filed: 12/16/21 17:21> ROS Statement: Those systems with pertinent positive or pertinent negative responses have been documented in the HPI. Review of Systems: CONST: Denies fever EYES: Denies blurry vision ENT: Denies nasal congestion C/V: Denies Chest pain RESP: Denies shortness of breath GI: Endorses abdominal pain : Denies dysuria SKIN: Denies rash. MSK: Denies joint pain. NEURO: Denies headache (Jairo Mcmahon) Past Medical History Past Medical History: Coronary Artery Disease (CAD), Diabetes Mellitus, Eye Disorder, Hypertension, Myocardial Infarction ([place]) Additional Past Medical History / Comment(s): See Dr Galo's H&P. past cataracts, vertigo/balance issues. past fall w/ rib fx. 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 Last Myocardial Infarction Date:: 2010 History of Any Multi-Drug Resistant Organisms: None Reported Past Surgical History: Heart Catheterization With Stent, Orthopedic Surgery, Pacemaker Additional Past Surgical History / Comment(s): lt eye lens implant, laser eye sx L eye,rt shoulder rotator cuff repair, 2 cardiac stents Past Anesthesia/Blood Transfusion Reactions: Motion Sickness Date of Last Stent Placement:: 2010 Type of Cardiac Device: Permanent Pacemaker Device Placement Date:: 2017 Past Psychological History: Depression Smoking Status: Former smoker Past Alcohol Use History: None Reported Past Drug Use History: None Reported - Past Family History Father Family Medical History: Cancer Mother Family Medical History: Cancer Brother(s) Family Medical History: Cancer, Myocardial Infarction (SD) Sister(s) Family Medical History: Cancer <Jairo Mcmahon - Last Filed: 12/16/21 14:46> General Exam <Jairo Mcmahon - Last Filed: 12/16/21 14:46> - General Exam Comments Initial Comments: General: Appears in no acute distress. HEAD: Normal with no signs of head trauma. EYES: PERRLA, EOMI, conjunctiva normal, no discharge. ENT: Hearing grossly intact, normal oropharynx. Dry mucous membranes. RESPIRATORY: Clear breath sounds bilaterally. No wheezes, rales, or rhonchi. C/V: Regular rate and rhythm. S1 and S2 auscultated, no edema, peripheral pulses 2+ and intact throughout ABD: Abdomen soft, nondistended. Mild tenderness to palpation in the left upper quadrant as well as left lower quadrant. No guarding. No peritoneal signs. No rebound tenderness. EXT: Normal range of motion, no obvious deformity SKIN: No rashes or lesions observed on exposed skin. NEURO: Alert and oriented 4. NIH is 0. GCS of 15. No focal neuro deficits. (Jairo Mcmahon) Course Vital Signs 12/16/21 12/16/21 12/16/21 13:24 14:49 15:15 Temperature 97.7 F Pulse Rate 58 L 59 L Respiratory 18 18 Rate Blood Pressure 108/71 143/74 126/68 O2 Sat by Pulse 100 100 100 Oximetry 12/16/21 16:20 Temperature Pulse Rate 86 Respiratory 18 Rate Blood Pressure 117/59 O2 Sat by Pulse 98 Oximetry Medical Decision Making - Lab Data Result diagrams: 12/16/21 13:54 12/16/21 13:54 - EKG Data -: EKG Interpreted by Me <Jairo Mcmahon - Last Filed: 12/16/21 14:46> - Lab Data Result diagrams: 12/16/21 13:54 12/16/21 13:54 <River Hathaway - Last Filed: 12/16/21 17:21> - Medical Decision Making Based on the patient's presentation and physical exam, I'm concerned for worsening infectious etiology for his current symptoms we cannot rule out other intra-known process. Abdominal imaging was obtained the other day. Therefore we will obtain a CT abdomen and pelvis in addition to abdominal laboratory studies and a screening EKG. He was in agreement this plan. Covid and flu swabs will be obtained. EKG shows no signs of acute ischemia. Unchanged from prior EKGs. Laboratory studies are remarkable for a slight leukopenia 3.1. Lactic acid is within no rmal limits. Patient is hypokalemic to 2.9 which will be replenished. Flu swabs are negative. At this time and see him of my shift. Further laboratory studies are still pending as well as imaging. Patient will be signed out to the [facility] emergency department physician Dr. Hathaway for further workup. (Jairo Mcmahon) Patient is signed out to me by previous shift physician, Dr. Mcmahon. Patient presents to the emergency department for abdominal symptoms ongoing for the last 4 days. Vital signs upon arrival are within acceptable limits. Laboratory evaluation shows mild leukopenia 3.1. Cardiac panel is negative. Calcium level is 2.9. Plan at sign out was to follow-up with CT imaging. Computed tomography scan of the abdomen and pelvis suggests small and large bowel diverticulitis. Patient reevaluated bedside for 4:50 PM. Disposition options were discussed. Patient has been feeling ill and unable to keep anything orally down. Patient feels more comfortable with admission. (River Hathaway) - Lab Data Lab Results 12/16/21 12/16/21 12/16/21 Range/Units 13:54 13:54 13:54 WBC 3.1 L (3.8-10.6) k/uL RBC 4.51 (4.30-5.90) m/uL Hgb 14.7 (13.0-17.5) gm/dL Hct 41.5 (39.0-53.0) % MCV 92.1 (80.0-100.0) fL MCH 32.7 (25.0-35.0) pg MCHC 35.5 (31.0-37.0) g/dL RDW 12.9 (11.5-15.5) % Plt Count 151 (150-450) k/uL MPV 7.2 Neutrophils % 77 % Lymphocytes % 14 % Monocytes % 6 % Eosinophils % 1 % Basophils % 0 % Neutrophils # 2.4 (1.3-7.7) k/uL Lymphocytes # 0.4 L (1.0-4.8) k/uL Monocytes # 0.2 (0-1.0) k/uL Eosinophils # 0.0 (0-0.7) k/uL Basophils # 0.0 (0-0.2) k/uL PT 10.3 (9.0-12.0) sec INR 0.9 (<1.2) APTT 16.8 L (22.0-30.0) sec Sodium 137 (137-145) mmol/L Potassium 2.9 L (3.5-5.1) mmol/L Chloride 105 (98-107) mmol/L Carbon Dioxide 24 (22-30) mmol/L Anion Gap 8 mmol/L BUN 17 (9-20) mg/dL Creatinine 0.95 (0.66-1.25) mg/dL Est GFR (CKD-EPI)AfAm 85 (>60 ml/min/1.73 sqM) Est GFR (CKD-EPI)NonAf 74 (>60 ml/min/1.73 sqM) Glucose 109 H (74-99) mg/dL Plasma Lactic Acid Michael (0.7-2.0) mmol/L Calcium 8.4 (8.4-10.2) mg/dL Total Bilirubin 0.4 (0.2-1.3) mg/dL AST 19 (17-59) U/L ALT 9 (4-49) U/L Alkaline Phosphatase 61 (38-126) U/L Total Protein 5.9 L (6.3-8.2) g/dL Albumin 3.2 L (3.5-5.0) g/dL Amylase 34 (30-110) U/L Lipase 30 (23-300) U/L Urine Color Urine Appearance (Clear) Urine pH (5.0-8.0) Ur Specific [place] (1.001-1.035) Urine Protein (Negative) Urine Glucose (UA) (Negative) Urine Ketones (Negative) Urine Blood (Negative) Urine Nitrite (Negative) Urine Bilirubin (Negative) Urine Urobilinogen (<2.0) mg/dL Ur Leukocyte Esterase (Negative) Urine RBC (0-5) /hpf Urine WBC (0-5) /hpf Ur Squamous Epith Cells (0-4) /hpf Hyaline Casts (0-2) /lpf Urine Mucus (None) /hpf Coronavirus (PCR) (Not Detectd) Influenza Type A RNA (Not Detectd) Influenza Type B (PCR) (Not Detectd) 12/16/21 12/16/21 12/16/21 Range/Units 13:54 13:54 13:54 WBC (3.8-10.6) k/uL RBC (4.30-5.90) m/uL Hgb (13.0-17.5) gm/dL Hct (39.0-53.0) % MCV (80.0-100.0) fL MCH (25.0-35.0) pg MCHC (31.0-37.0) g/dL RDW (11.5-15.5) % Plt Count (150-450) k/uL MPV Neutrophils % % Lymphocytes % % Monocytes % % Eosinophils % % Basophils % % Neutrophils # (1.3-7.7) k/uL Lymphocytes # (1.0-4.8) k/uL Monocytes # (0-1.0) k/uL Eosinophils # (0-0.7) k/uL Basophils # (0-0.2) k/uL PT (9.0-12.0) sec INR (<1.2) APTT (22.0-30.0) sec Sodium (137-145) mmol/L Potassium (3.5-5.1) mmol/L Chloride (98-107) mmol/L Carbon Dioxide (22-30) mmol/L Anion Gap mmol/L BUN (9-20) mg/dL Creatinine (0.66-1.25) mg/dL Est GFR (CKD-EPI)AfAm (>60 ml/min/1.73 sqM) Est GFR (CKD-EPI)NonAf (>60 ml/min/1.73 sqM) Glucose (74-99) mg/dL Plasma Lactic Acid Michael 1.8 (0.7-2.0) mmol/L Calcium (8.4-10.2) mg/dL Total Bilirubin (0.2-1.3) mg/dL AST (17-59) U/L ALT (4-49) U/L Alkaline Phosphatase (38-126) U/L Total Protein (6.3-8.2) g/dL Albumin (3.5-5.0) g/dL Amylase (30-110) U/L Lipase (23-300) U/L Urine Color Urine Appearance (Clear) Urine pH (5.0-8.0) Ur Specific [place] (1.001-1.035) Urine Protein (Negative) Urine Glucose (UA) (Negative) Urine Ketones (Negative) Urine Blood (Negative) Urine Nitrite (Negative) Urine Bilirubin (Negative) Urine Urobilinogen (<2.0) mg/dL Ur Leukocyte Esterase (Negative) Urine RBC (0-5) /hpf Urine WBC (0-5) /hpf Ur Squamous Epith Cells (0-4) /hpf Hyaline Casts (0-2) /lpf Urine Mucus (None) /hpf Coronavirus (PCR) Not Detected (Not Detectd) Influenza Type A RNA Not Detected (Not Detectd) Influenza Type B (PCR) Not Detected (Not Detectd) 12/16/21 Range/Units 16:26 WBC (3.8-10.6) k/uL RBC (4.30-5.90) m/uL Hgb (13.0-17.5) gm/dL Hct (39.0-53.0) % MCV (80.0-100.0) fL MCH (25.0-35.0) pg MCHC (31.0-37.0) g/dL RDW (11.5-15.5) % Plt Count (150-450) k/uL MPV Neutrophils % % Lymphocytes % % Monocytes % % Eosinophils % % Basophils % % Neutrophils # (1.3-7.7) k/uL Lymphocytes # (1.0-4.8) k/uL Monocytes # (0-1.0) k/uL Eosinophils # (0-0.7) k/uL Basophils # (0-0.2) k/uL PT (9.0-12.0) sec INR (<1.2) APTT (22.0-30.0) sec Sodium (137-145) mmol/L Potassium (3.5-5.1) mmol/L Chloride (98-107) mmol/L Carbon Dioxide (22-30) mmol/L Anion Gap mmol/L BUN (9-20) mg/dL Creatinine (0.66-1.25) mg/dL Est GFR (CKD-EPI)AfAm (>60 ml/min/1.73 sqM) Est GFR (CKD-EPI)NonAf (>60 ml/min/1.73 sqM) Glucose (74-99) mg/dL Plasma Lactic Acid Michael (0.7-2.0) mmol/L Calcium (8.4-10.2) mg/dL Total Bilirubin (0.2-1.3) mg/dL AST (17-59) U/L ALT (4-49) U/L Alkaline Phosphatase (38-126) U/L Total Protein (6.3-8.2) g/dL Albumin (3.5-5.0) g/dL Amylase (30-110) U/L Lipase (23-300) U/L Urine Color Yellow Urine Appearance Clear (Clear) Urine pH 6.0 (5.0-8.0) Ur Specific [place] 1.040 H (1.001-1.035) Urine Protein Trace H (Negative) Urine Glucose (UA) Negative (Negative) Urine Ketones Negative (Negative) Urine Blood Negative (Negative) Urine Nitrite Negative (Negative) Urine Bilirubin Negative (Negative) Urine Urobilinogen <2.0 (<2.0) mg/dL Ur Leukocyte Esterase Small H (Negative) Urine RBC 4 (0-5) /hpf Urine WBC 3 (0-5) /hpf Ur Squamous Epith Cells 5 H (0-4) /hpf Hyaline Casts 1 (0-2) /lpf Urine Mucus Rare H (None) /hpf Coronavirus (PCR) (Not Detectd) Influenza Type A RNA (Not Detectd) Influenza Type B (PCR) (Not Detectd) - EKG Data EKG Comments: 12-lead Electrocardiogram Interpretation Note EKG was reviewed and interpreted by myself. 12-lead ECG performed at 1327 is interpreted by me as revealing ventricular paced rhythm with wide complexes. At a rate of 59 beats per minute. Left axis deviation. CT intervals unobtainable, QRS duration is 166 ms, QTC is 510 ms.. There were no acute ST or T wave abnormalities to suggest myocardial ischemia or injury. R wave progression across the precordium was satisfactory. By my interpretation this EKG is non-diagnostic for acute ischemia. No change when compared to prior EKGs. (Jairo Mcmahon) Disposition <Jairo Mcmahon - Last Filed: 12/16/21 14:46> Decision Time: 17:21 <River Hathaway - Last Filed: 12/16/21 17:21> Clinical Impression: Diverticulitis, Intractable nausea and vomiting, Hypokalemia Disposition: ADMITTED IP TO THIS HOSP Condition: Fair Referrals: Jw Ruby MD [Primary Care Provider] - 1-2 days
[2021-12-16 14:12] LABS: Basophils % (A) 0 %; Eosinophils % (A) 1 %; HCT 41.5 % (39.0-53.0); HGB 14.7 gm/dL (13.0-17.5); Lymphocytes # (A) 0.4 k/uL (1.0-4.8); Lymphocytes % (A) 14 %; MCH 32.7 pg (25.0-35.0); MCHC 35.5 g/dL (31.0-37.0); MCV 92.1 fL (80.0-100.0); Mean Platelet Volume 7.2; Monocytes # (A) 0.2 k/uL (0-1.0); Monocytes % (A) 6 %; Neutrophils # (A) 2.4 k/uL (1.3-7.7); Neutrophils % (A) 77 %; Platelet Count 151 k/uL (150-450); RBC 4.51 m/uL (4.30-5.90); RDW 12.9 % (11.5-15.5); WBC 3.1 k/uL (3.8-10.6)
[2021-12-16 14:20] LABS: INR 0.9 (<1.2); Prothrombin Time 10.3 sec (9.0-12.0)
[2021-12-16 14:26] LABS: Partial Thromboplastin Time 16.8 sec (22.0-30.0)
[2021-12-16 14:29] LABS: Albumin 3.2 g/dL (3.5-5.0); Calcium 8.4 mg/dL (8.4-10.2); Potassium 2.9 mmol/L (3.5-5.1); Total Bilirubin 0.4 mg/dL (0.2-1.3); Total Protein 5.9 g/dL (6.3-8.2)
[2021-12-16] MEDS ORDERED: POTASSIUM CHLORIDE ER 20 MEQ TAB.ER PO STA (14:48)
--- NOTE | 2021-12-16 15:59 | CT ---
EXAMINATION TYPE: CT abdomen pelvis w con CT DLP: 1172.1 mGycm, Automated exposure control for dose reduction was used. DATE OF EXAM: 12/16/2021 3:41 PM COMPARISON: CT angiogram chest 01/28/2018 CLINICAL INDICATION:Male, 86 years old with history of abdominal pain, acute, nonlocalized; generaliz ed weakness. nausea and diarrhea. TECHNIQUE: Standard CT of the abdomen and pelvis following the administration of 100 cc of Isovue 3 00 IV contrast material. Coronal and sagittal reformats were performed. FINDINGS: LOWER CHEST: Partially visualized cardiac conduction leads terminating within the right ventricle. Th ere is moderate coronary artery atherosclerosis. Atelectasis changes seen within the lung bases as we ll as chronic bronchiectasis within the left lower lung. ABDOMEN LIVER: Hepatic cysts measuring up to 2.1 cm. GALLBLADDER AND BILE DUCTS: The gallbladder is surgically absent. PANCREAS: Unremarkable. SPLEEN: Unremarkable. ADRENAL GLANDS: Unremarkable. KIDNEYS AND URETERS: No evidence of hydronephrosis or renal calculus. The ureters are unremarkable. PELVIS BLADDER: Unremarkable REPRODUCTIVE: Unremarkable. ABDOMEN & PELVIS STOMACH AND BOWEL: Scattered colonic diverticulosis. Appendix is normal. Multiple small bowel diverti cula are seen throughout the abdomen most proximal and left upper quadrant. No evidence of bowel obst ruction. PERITONEUM: No evidence of pneumoperitoneum or free fluid. VASCULATURE: No evidence of aortic aneurysm. MUSCULOSKELETAL: No acute osseous abnormalities. End-stage osteophytic changes of the right hip with qpal-ss-ssiw articulation. LYMPH NODES: No gross evidence for lymphadenopathy. SOFT TISSUE/ABDOMINAL WALL: Bilateral fat filled inguinal hernia. IMPRESSION: 1. Small and large bowel diverticula with mesenteric fat stranding/inflammation changes which could r epresent uncomplicated small bowel diverticulitis. These findings are not definitively visualized on prior in 2019. 2. Bilateral fat filled inguinal hernias. 3. End-stage right hip osteoarthrosis
[2021-12-16 16:34] LABS: Appearance,Urine Clear (Clear); Bilirubin,Urine Negative (Negative); Blood,Urine Negative (Negative); Color,Urine Yellow; Glucose,Urine (UA) Negative (Negative); Hyaline Casts,Urine 1 /lpf (0-2); Ketones,Urine Negative (Negative); Leukocyte Esterase,Urine Small (Negative); Mucus,Urine Rare /hpf; Nitrite,Urine Negative (Negative); Protein,Urine Trace (Negative); RBC,Urine 4 /hpf (0-5); Squamous Epithelial Cell,Urine 5 /hpf (0-4); Urobilinogen,Urine <2.0 mg/dL (<2.0); WBC,Urine 3 /hpf (0-5)
[2021-12-16] MEDS ORDERED: NALOXONE 0.4 MG/ML 1 ML VIAL IV PRN (17:03)
[2021-12-16] MEDS ORDERED: ONDANSETRON 4 MG/2 ML VIAL IVP PRN (17:03)
[2021-12-16] MEDS ORDERED: ACETAMINOPHEN TAB 325 MG TAB PO PRN (17:03)
[2021-12-16] MEDS ORDERED: AMPICILLIN-SULBACTAM 3 GM in SODIUM CHLORIDE 0.9% 100 ML IVPB STA (17:05)
[2021-12-16] MEDS: SODIUM CHLORIDE 0.9% 1,000 ML IV SCH (17:23)
[2021-12-16] MEDS ORDERED: MORPHINE SULFATE 2 MG/ML SYRINGE IVP PRN (18:08)
[2021-12-16 20:50] LABS: Glucose,Whole Blood 97 mg/dL (70-110)
[2021-12-16] MEDS: ENOXAPARIN 100 MG/ML SYRINGE SQ SCH (22:16)
[2021-12-17] MEDS: AMPICILLIN-SULBACTAM 3 GM in SODIUM CHLORIDE 0.9% 100 ML IVPB SCH ×3 (00:59→16:16)
[2021-12-17 07:27] LABS: Glucose,Whole Blood 92 mg/dL (70-110)
[2021-12-17] MEDS: SODIUM CHLORIDE 0.9% 1,000 ML IV SCH ×3 (08:11→23:45)
[2021-12-17] MEDS: ENOXAPARIN 100 MG/ML SYRINGE SQ SCH ×2 (08:12→21:15)
[2021-12-17 10:09] LABS: HGB 10.1 g/dL (13.0-17.0); MCH 31.2 pg (27.0-32.0); MCHC 34.8 g/dL (32.0-37.0); MCV 89.5 fL (80.0-97.0); Mean Platelet Volume 9.8 fL (9.5-12.2); NRBC Per 100 WBC 0 /100 WBCS (0.0-0.0); Platelet Count 163 X 10*3/uL (140-440); RBC 3.24 X 10*6/uL (4.40-5.60); RDW 12.7 % (11.5-14.5); WBC 4.03 X 10*3/uL (4.50-10.00)
[2021-12-17 10:37] LABS: Basophils # (M) 0 X 10*3/uL (0.00-0.10); Eosinophils # (M) 0.04 X 10*3/uL (0.04-0.35); Lymphocytes # (M) 0.32 X 10*3/uL (0.90-5.00); Monocytes # (M) 0.24 X 10*3/uL (0.20-1.00); Neutrophils # (M) 3.43 X 10*3/uL (2.00-8.90); Neutrophils % (M) 85 %
[2021-12-17 10:59] LABS: African American GFR (CKD) 71.1 (60.0-200.0); Anion Gap 12.4 mmol/L (10.00-18.00); Carbon Dioxide 20.6 mmol/L (20.0-27.5); Magnesium 1.7 mg/dL (1.5-2.4); Non-African American GFR(CKD) 61.3 (60.0-200.0)
--- NOTE | 2021-12-17 11:33 | P.HPIM ---
History of Present Illness This is a pleasant 86 years old male with past medical history of atrial fibrillation on liquids status post pacemaker, gastroesophageal reflux disease, diabetes mellitus, depression Patient presents because of left lower quadrant abdominal pain for about one week associated with diarrhea without specification and vomiting, he was vomiting for the last 2 days including this morning. He denies blood in it. However this morning he states that his abdominal pain went down from 7/10 out to 0 and currently he is. He denies any chest pain or dyspnea. No headache or dizziness. He says he tolerates liquid diet and we will keep in since patient has no abdominal pain today. He denies smoking, alcohol or illicit drugs Patient is afebrile and vital signs stable. mild leukopenia of 3.1, rest of cbc is unremarkable. inr 0.9 potassium low at 2.9, rest of bmp and liver enzymes are unremarkable. lipase is normal at 30. urine analysis is negative for infection undetected viruses including covid and influenza EKG: Paced rhythm CT of the abdomen and pelvis with IV contrast: Colonic diverticulosis, multiple small bowel diverticula, no bowel obstruction, small and large bowel diverticula with mesenteric fat stranding/inflammation changes which could represent an uncomplicated small bowel diverticulitis. These findings are not definitely visualized on the prior in 2019. Bilateral fat filled inguinal hernias. End stage right hip osteoarthritis Review of Systems Review of systems CONSTITUTIONAL: No fever, no malaise, no fatigue. HEENT: No recent visual problems or hearing problems. Denied any sore throat. CARDIOVASCULAR: No orthopnea, PND, no palpitations, no syncope. PULMONARY: No shortness of breath, no cough, no hemoptysis. -GASTROINTESTINAL: As above NEUROLOGICAL: No headaches, no weakness, no numbness. HEMATOLOGICAL: Denies any bleeding or petechiae. GENITOURINARY: Denies any burning micturition, frequency, or urgency. MUSCULOSKELETAL/RHEUMATOLOGICAL: Denies any joint pain, swelling, or any muscle pain. ENDOCRINE: Denies any polyuria or polydipsia. Past Medical History Past Medical History: Atrial Fibrillation, Coronary Artery Disease (CAD), Diabetes Mellitus, Eye Disorder, Hypertension, Myocardial Infarction ([place]), Syncope Additional Past Medical History / Comment(s): past cataracts, diverticulitis, vertigo/balance issues. past fall w/ rib fx. 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 Last Myocardial Infarction Date:: 2010 History of Any Multi-Drug Resistant Organisms: None Reported Past Surgical History: Heart Catheterization With Stent, Orthopedic Surgery, Pacemaker Additional Past Surgical History / Comment(s): lt eye lens implant, laser eye sx L eye,rt shoulder rotator cuff repair, 2 cardiac stents Past Anesthesia/Blood Transfusion Reactions: Motion Sickness Date of Last Stent Placement:: 2010 Type of Cardiac Device: Permanent Pacemaker Device Placement Date:: 2017 Past Psychological History: Depression Additional Psychological History / Comment(s): pt lives with kade alvarez. lives in 2 story home that has 5 porch steps.no home care services, no medical equipment. 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 8 dogs, 4 cats. no service in past. Smoking Status: Former smoker Past Alcohol Use History: None Reported Additional Past Alcohol Use History / Comment(s): chewed tobacco quit 34 years ago, smoked cigar occas quit 20 years ago Past Drug Use History: None Reported - Past Family History Father Family Medical History: Cancer Mother Family Medical History: Cancer Brother(s) Family Medical History: Cancer, Myocardial Infarction ([place]) Sister(s) Family Medical History: Cancer Medications and Allergies Home Medications Medication Instructions Recorded Confirmed Type Citalopram Hydrobromide 40 mg PO DAILY 07/20/19 12/16/21 History [Citalopram HBr] Apixaban [Eliquis] 5 mg PO BID 11/14/20 12/16/21 History Acetaminophen Tab [Tylenol] 650 mg PO Q6HR PRN tab 12/12/21 12/16/21 Rx Magnesium Oxide [Mag-Ox] 400 mg PO BID 30 Days #60 tab 12/12/21 12/16/21 Rx Pantoprazole Sodium [Protonix] 40 mg PO DAILY #30 tab 12/12/21 12/16/21 Rx cefUROXime axetiL [Ceftin] 500 mg PO BID 3 Days #6 tab 12/12/21 12/16/21 Rx Allergies Allergy/AdvReac Type Severity Reaction Status Date / Time No Known Allergies Allergy Verified 12/16/21 15:59 Physical Exam Vitals: Vital Signs Temp Pulse Pulse Resp BP BP Pulse Ox 12/17/21 02:00 98.6 F 61 16 115/70 97 12/16/21 20:12 16 12/16/21 20:00 98.3 F 60 16 112/67 99 12/16/21 19:17 98.2 F 69 18 120/69 100 12/16/21 17:32 60 18 128/60 100 12/16/21 16:20 86 18 117/59 98 12/16/21 15:15 126/68 100 12/16/21 14:49 59 L 18 143/74 100 12/16/21 13:24 97.7 F 58 L 18 108/71 100 Intake and Output 12/16/21 12/16/21 12/17/21 14:59 22:59 06:59 Intake Total 1080 Balance 1080 Intake: Oral 1080 Other: Voiding Method Toilet Weight 88.451 kg 88.451 kg GENERAL: The patient is alert and oriented x3, not in any acute distress. Well developed, well nourished. HEENT: Pupils are round and equally reacting to light. EOMI. No scleral icterus. No conjunctival pallor. Normocephalic, atraumatic. No pharyngeal erythema. No thyromegaly. CARDIOVASCULAR: S1 and S2 present. No murmurs, rubs, or gallops. PULMONARY: Chest is clear to auscultation, no wheezing or crackles. ABDOMEN: Soft, nontender, nondistended, normoactive bowel sounds. No palpable organomegaly. MUSCULOSKELETAL: No joint swelling or deformity. EXTREMITIES: No cyanosis, clubbing, or pedal edema. NEUROLOGICAL: Gross neurological examination did not reveal any focal deficits. SKIN: No rashes. no petechiae. Results CBC & Chem 7: 12/17/21 06:22 12/17/21 06:22 Labs: Abnormal Lab Results - Last 24 Hours (Table) 12/16/21 12/16/21 12/16/21 Range/Units 13:54 13:54 13:54 WBC 3.1 L (3.8-10.6) k/uL Lymphocytes # 0.4 L (1.0-4.8) k/uL APTT 16.8 L (22.0-30.0) sec Potassium 2.9 L (3.5-5.1) mmol/L Glucose 109 H (74-99) mg/dL Total Protein 5.9 L (6.3-8.2) g/dL Albumin 3.2 L (3.5-5.0) g/dL Ur Specific [place] (1.001-1.035) Urine Protein (Negative) Ur Leukocyte Esterase (Negative) Ur Squamous Epith Cells (0-4) /hpf Urine Mucus (None) /hpf 12/16/21 Range/Units 16:26 WBC (3.8-10.6) k/uL Lymphocytes # (1.0-4.8) k/uL APTT (22.0-30.0) sec Potassium (3.5-5.1) mmol/L Glucose (74-99) mg/dL Total Protein (6.3-8.2) g/dL Albumin (3.5-5.0) g/dL Ur Specific [place] 1.040 H (1.001-1.035) Urine Protein Trace H (Negative) Ur Leukocyte Esterase Small H (Negative) Ur Squamous Epith Cells 5 H (0-4) /hpf Urine Mucus Rare H (None) /hpf Thrombosis Risk Factor Assmnt - Choose All That Apply Each Factor Represents 1 point: Obesity (BMI >25) Each Risk Factor Represents 3 Points: Age 75 years or older Thrombosis Risk Factor Assessment Total Risk Factor Score: 4 Thrombosis Risk Factor Assessment Level: Moderate Risk Assessment and Plan Assessment: Acute diverticulitis Diabetes mellitus End stage right hip osteoarthritis Chronic atrial fibrillation on liquids History of GERD History of depression, not an active issue Plan: This is a pleasant 86 years old male who presents with acute diverticulitis Continue with bowel rest and continue with IV fluid. Patient currently is on liquid diet. We will continue Continue with antibiotic and pain medication Change the Eliquis dose into Lovenox while in-house surgical team consult Labs and medication were reviewed.. Continue same treatment. Continue with symptomatic treatment. Resume home medication. Monitor lytes and vitals. DVT and GI prophylaxis. Further recommendations as per clinical course of the patient DVT prophylaxis: Subcutaneous Lovenox GI Prophylaxis: Ppi PT/OT: Pending Prognosis is guarded
[2021-12-17 11:43] LABS: Glucose,Whole Blood 101 mg/dL (70-110)
[2021-12-17 16:35] LABS: Glucose,Whole Blood 102 mg/dL (70-110)
[2021-12-17 20:51] LABS: Glucose,Whole Blood 107 mg/dL (70-110)
[2021-12-18] MEDS: AMPICILLIN-SULBACTAM 3 GM in SODIUM CHLORIDE 0.9% 100 ML IVPB SCH ×3 (00:58→17:20)
[2021-12-18 07:17] LABS: Glucose,Whole Blood 96 mg/dL (70-110)
[2021-12-18] MEDS: SODIUM CHLORIDE 0.9% 1,000 ML IV SCH (09:15)
[2021-12-18] MEDS: ENOXAPARIN 100 MG/ML SYRINGE SQ SCH ×2 (09:17→19:49)
--- NOTE | 2021-12-18 10:30 | P.GSCN ---
History of Present Illness Consult date: 12/18/21 History of present illness: 86-year-old male presents to the emergency department with complaints of abdominal pain. He states that most of the abdominal pain is on the left side of his abdomen. He also complained of nausea and vomiting. He states that this again suddenly and did worsen. On workup, he was found to have uncomplicated diverticulitis on CT of the abdomen and pelvis. Since his admission, he states that he is feeling much better. He has been on IV fluids, IV antibiotics and his diet has slowly been advanced. He states that he is hungry. He has had multiple episodes of loose stool. He denies having this type of issue previously. Review of Systems All systems: negative Past Medical History Past Medical History: Atrial Fibrillation, Coronary Artery Disease (CAD), Diabetes Mellitus, Eye Disorder, Hypertension, Myocardial Infarction ([place]), Syncope Additional Past Medical History / Comment(s): past cataracts, diverticulitis, vertigo/balance issues. past fall w/ rib fx. 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 Last Myocardial Infarction Date:: 2010 History of Any Multi-Drug Resistant Organisms: None Reported Past Surgical History: Heart Catheterization With Stent, Orthopedic Surgery, Pacemaker Additional Past Surgical History / Comment(s): lt eye lens implant, laser eye sx L eye,rt shoulder rotator cuff repair, 2 cardiac stents Past Anesthesia/Blood Transfusion Reactions: Motion Sickness Date of Last Stent Placement:: 2010 Type of Cardiac Device: Permanent Pacemaker Device Placement Date:: 2017 Past Psychological History: Depression Additional Psychological History / Comment(s): pt lives with kade alvarez. lives in 2 story home that has 5 porch steps.no home care services, no medical equipment. 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 8 dogs, 4 cats. no service in past. Smoking Status: Former smoker Past Alcohol Use History: None Reported Additional Past Alcohol Use History / Comment(s): chewed tobacco quit 34 years ago, smoked cigar occas quit 20 years ago Past Drug Use History: None Reported - Past Family History Father Family Medical History: Cancer Mother Family Medical History: Cancer Brother(s) Family Medical History: Cancer, Myocardial Infarction ([place]) Sister(s) Family Medical History: Cancer Medications and Allergies Home Medications Medication Instructions Recorded Confirmed Type Citalopram Hydrobromide 40 mg PO DAILY 07/20/19 12/16/21 History [Citalopram HBr] Apixaban [Eliquis] 5 mg PO BID 11/14/20 12/16/21 History Acetaminophen Tab [Tylenol] 650 mg PO Q6HR PRN tab 12/12/21 12/16/21 Rx Magnesium Oxide [Mag-Ox] 400 mg PO BID 30 Days #60 tab 12/12/21 12/16/21 Rx Pantoprazole Sodium [Protonix] 40 mg PO DAILY #30 tab 12/12/21 12/16/21 Rx cefUROXime axetiL [Ceftin] 500 mg PO BID 3 Days #6 tab 12/12/21 12/16/21 Rx Allergies Allergy/AdvReac Type Severity Reaction Status Date / Time No Known Allergies Allergy Verified 12/16/21 15:59 Surgical - Exam Osteopathic Statement: *. No significant issues noted on an osteopathic structural exam other than those noted in the History and Physical/Consult. Vital Signs Temp Pulse Resp BP Pulse Ox 97.7 F 58 L 18 108/71 100 12/16/21 13:24 12/16/21 13:24 12/16/21 13:24 12/16/21 13:24 12/16/21 13:24 - General well nourished, no distress - Eyes normal ocular movement - ENT no hearing loss - Neck trachea midline - Respiratory normal respiratory effort - Abdomen Abdomen: soft, non tender - Psychiatric oriented to time, oriented to person, oriented to place Results - Labs 12/17/21 06:22 12/17/21 06:22 Abnormal Lab Results - Last 24 Hours (Table) 12/17/21 12/17/21 Range/Units 06:22 06:22 Lymphocytes # (Manual) 0.32 L (0.90-5.00) X 10*3/uL Potassium 3.0 L (3.5-5.5) mmol/L BUN/Creatinine Ratio 10.00 L (12.00-20.00) Ratio Calcium 8.0 L (8.7-10.3) mg/dL Diabetes panel 12/17/21 Range/Units 06:22 Sodium 139 (135-145) mmol/L Potassium 3.0 L (3.5-5.5) mmol/L Chloride 106 (96-109) mmol/L Carbon Dioxide 20.6 (20.0-27.5) mmol/L BUN 11.0 (9.0-27.0) mg/dL Creatinine 1.1 (0.6-1.5) mg/dL Glucose 81 (70-110) mg/dL Calcium 8.0 L (8.7-10.3) mg/dL Calcium panel 12/17/21 Range/Units 06:22 Calcium 8.0 L (8.7-10.3) mg/dL Pituitary panel 12/17/21 Range/Units 06:22 Sodium 139 (135-145) mmol/L Potassium 3.0 L (3.5-5.5) mmol/L Chloride 106 (96-109) mmol/L Carbon Dioxide 20.6 (20.0-27.5) mmol/L BUN 11.0 (9.0-27.0) mg/dL Creatinine 1.1 (0.6-1.5) mg/dL Glucose 81 (70-110) mg/dL Calcium 8.0 L (8.7-10.3) mg/dL Adrenal panel 12/17/21 Range/Units 06:22 Sodium 139 (135-145) mmol/L Potassium 3.0 L (3.5-5.5) mmol/L Chloride 106 (96-109) mmol/L Carbon Dioxide 20.6 (20.0-27.5) mmol/L BUN 11.0 (9.0-27.0) mg/dL Creatinine 1.1 (0.6-1.5) mg/dL Glucose 81 (70-110) mg/dL Calcium 8.0 L (8.7-10.3) mg/dL Assessment and Plan Plan: 86-year-old male with diverticulitis. Based on CT, it is possible of either small or large bowel diverticulitis based on mesenteric fat stranding. At this point, the patient seems significantly improved than his arrival to the emergency department. His abdominal pain has completely been relieved. He is hungry and asking for a diet. There is no evidence of leukocytosis on last blood draw. Based on improvement of symptoms, agents diet to be advanced. Continue antibiotics. No plan for acute surgical intervention.
[2021-12-18 11:08] LABS: Glucose,Whole Blood 112 mg/dL (70-110)
[2021-12-18 16:46] LABS: Glucose,Whole Blood 124 mg/dL (70-110)
--- NOTE | 2021-12-18 19:59 | P.PN ---
Subjective Progress Note Date: 12/18/21 86 years old male with past medical history of atrial fibrillation on liquids status post pacemaker, gastroesophageal reflux disease, diabetes mellitus, depression Patient presents because of left lower quadrant abdominal pain for about one week associated with diarrhea without specification and vomiting, he was vomiting for the last 2 days including this morning. He denies blood in it. However this morning he states that his abdominal pain went down from 7/10 out to 0 and currently he is. He denies any chest pain or dyspnea. No headache or dizziness. He says he tolerates liquid diet and we will keep in since patient has no abdominal pain today. He denies smoking, alcohol or illicit drugs mild leukopenia of 3.1, rest of cbc is unremarkable. inr 0.9 potassium low at 2.9, rest of bmp and liver enzymes are unremarkable. lipase is normal at 30. urine analysis is negative for infection undetected viruses including covid and influenza EKG: Paced rhythm CT of the abdomen and pelvis with IV contrast: Colonic diverticulosis, multiple small bowel diverticula, no bowel obstruction, small and large bowel diverticula with mesenteric fat stranding/inflammation changes which could represent an unc omplicated small bowel diverticulitis. These findings are not definitely visualized on the prior in 2019. Bilateral fat filled inguinal hernias. End stage right hip osteoarthritis Objective - Vital Signs Vital signs: Vital Signs Temp 97.9 F 12/18/21 14:00 Pulse 61 12/18/21 14:00 Resp 18 12/18/21 14:00 BP 143/80 12/18/21 14:00 Pulse Ox 98 12/18/21 14:00 FiO2 Intake & Output 12/17/21 12/18/21 12/18/21 18:59 06:59 18:59 Intake Total 360 1080 Balance 360 1080 Intake: Oral 360 1080 Other: Voiding Method Toilet Toilet Toilet # Voids 3 # Bowel Movements 2 - Exam GENERAL: The patient is alert and oriented x3, not in any acute distress. Well developed, well nourished. HEENT: Pupils are round and equally reacting to light. EOMI. No scleral icterus. No conjunctival pallor. Normocephalic, atraumatic. No pharyngeal erythema. No thyromegaly. CARDIOVASCULAR: S1 and S2 present. No murmurs, rubs, or gallops. PULMONARY: Chest is clear to auscultation, no wheezing or crackles. ABDOMEN: Soft, nontender, nondistended, normoactive bowel sounds. No palpable organomegaly. MUSCULOSKELETAL: No joint swelling or deformity. EXTREMITIES: No cyanosis, clubbing, or pedal edema. NEUROLOGICAL: Gross neurological examination did not reveal any focal deficits. SKIN: No rashes. no petechiae. - Labs CBC & Chem 7: 12/17/21 06:22 12/17/21 06:22 Labs: Abnormal Lab Results - Last 24 Hours (Table) 12/18/21 Range/Units 11:06 POC Glucose (mg/dL) 112 H (70-110) mg/dL Assessment and Plan Assessment: Acute diverticulitis Diabetes mellitus End stage right hip osteoarthritis Chronic atrial fibrillation on liquids History of GERD History of depression, not an active issue Continue with bowel rest and continue with IV fluid. Patient currently is on liquid diet. We will continue Continue with antibiotic and pain medication Change the Eliquis dose into Lovenox while in-house surgical team consult Labs and medication were reviewed.. Continue same treatment. Continue with symptomatic treatment. Resume home medication. Monitor lytes and vitals. DVT and GI prophylaxis. Further recommendations as per clinical course of the patient DVT prophylaxis: Subcutaneous Lovenox GI Prophylaxis: Ppi PT/OT: Pending Prognosis is guarded
[2021-12-18 21:16] LABS: Glucose,Whole Blood 110 mg/dL (70-110)
[2021-12-19] MEDS: AMPICILLIN-SULBACTAM 3 GM in SODIUM CHLORIDE 0.9% 100 ML IVPB SCH ×2 (00:20→08:24)
[2021-12-19 07:09] LABS: Glucose,Whole Blood 101 mg/dL (70-110)
[2021-12-19] MEDS: SODIUM CHLORIDE 0.9% 1,000 ML IV SCH ×2 (08:19→08:25)
[2021-12-19] MEDS: ENOXAPARIN 100 MG/ML SYRINGE SQ SCH (08:19)
[2021-12-19 08:33] VITALS: TEMP 97.9
[2021-12-19 11:11] LABS: Glucose,Whole Blood 112 mg/dL (70-110)
--- NOTE | 2021-12-19 11:37 | P.PN ---
Subjective Progress Note Date: 12/19/21 Principal diagnosis: Diverticulitis Patient was admitted due to diverticulitis. Feeling much better than admission. He tolerated a diet. No nausea or vomiting. He is having some diarrhea. Anxious to go home Objective - Vital Signs Vital signs: Vital Signs Temp 97.9 F 12/19/21 08:00 Pulse 60 12/19/21 08:00 Resp 16 12/19/21 08:00 BP 141/65 12/19/21 08:00 Pulse Ox 94 L 12/19/21 08:00 FiO2 Intake & Output 12/18/21 12/19/21 12/19/21 18:59 06:59 18:59 Intake Total 120 Balance 120 Intake: Oral 120 Other: Voiding Method Toilet Toilet # Voids 1 - Constitutional General appearance: Present: cooperative, no acute distress - Gastrointestinal General gastrointestinal: Present: normal bowel sounds, soft. Absent: distended, tenderness - Labs CBC & Chem 7: 12/17/21 06:22 12/17/21 06:22 Labs: Abnormal Lab Results - Last 24 Hours (Table) 12/18/21 12/19/21 Range/Units 16:45 11:10 POC Glucose (mg/dL) 124 H 112 H (70-110) mg/dL Assessment and Plan (1) Diverticulitis Current Visit: Yes Status: Acute Code(s): K57.92 - DVTRCLI OF INTEST, PART UNSP, W/O PERF OR ABSCESS W/O BLEED SNOMED Code(s): 748673705 Plan: Clinically the patient is improving. Nonsurgical. Surgically stable for discharge. Follow-up as needed
[2021-12-19 14:38] VITALS: BP 138/71; PULSE 62; RESP 17
== END 2021-12-19 15:02 | disposition home or self-care (01) | DRG 392 ==
LOC: EC 13:23 → 4SSUR 17:04
PROVIDERS: ADMIT Family Medicine; ATTEND Family Medicine
DX: K57.92 Diverticulitis of intestine, part unspecified, without perforation or abscess without bleeding (principal); I48.20 Chronic atrial fibrillation, unspecified; K92.0 Hematemesis; K40.20 Bilateral inguinal hernia, without obstruction or gangrene, not specified as recurrent; D72.819 Decreased white blood cell count, unspecified; E11.9 Type 2 diabetes mellitus without complications; E87.6 Hypokalemia; F32.A Depression, unspecified; I10 Essential (primary) hypertension; I25.10 Atherosclerotic heart disease of native coronary artery without angina pectoris; I25.2 Old myocardial infarction; Z20.822 Contact with and (suspected) exposure to COVID-19; M16.11 Unilateral primary osteoarthritis, right hip; Z79.01 Long term (current) use of anticoagulants; Z79.899 Other long term (current) drug therapy; Z82.49 Family history of ischemic heart disease and other diseases of the circulatory system; Z87.891 Personal history of nicotine dependence; Z95.0 Presence of cardiac pacemaker; Z95.5 Presence of coronary angioplasty implant and graft; Z28.311 Partially vaccinated for COVID-19; Z91.81 History of falling
CPT/HCPCS: 36415; 74177; 80048; 80053; 81001; 82150; 83605; 83690; 83735; 84145; 85025; 85610; 85730; 87502; 87635; 93005; 96361; 96365; 96366; 96375; 99285

== ENCOUNTER → 2022-10-12 | Outpatient (CLI) | payer MEDICARE ==
--- NOTE | 2022-10-13 08:33 | XR ---
EXAMINATION TYPE: XR Hip Bilateral and AP pelvis DATE OF EXAM: 10/12/2022 COMPARISON: NONE HISTORY: Pain TECHNIQUE: A single AP view of the pelvis is obtained. Two views of the bilateral hip are obtained. FINDINGS: There is no acute fracture/dislocation evident in the pelvis. There is severe narrowing of the right hip joint with complete loss of joint space and moderate concentric narrowing of the left. Hypertrophic and degenerative changes of the spine. SI joints symmetric. Calcifications pelvis are l ikely vascular. There is diffuse osteopenia. Hypertrophic change of the acetabulum The overlying soft tissue appears unremarkable. Two views of bilateral hip show no acute fracture or dislocation. No focal lytic or sclerotic lesion seen in the proximal bilateral femur. The overlying soft tissue is unremarkable. IMPRESSION: 1. Severe arthropathy right hip with complete loss of joint space and remodeling of the acetabulum. 2. Moderate arthropathy of the left hip correlate for femoral acetabular impingement.
--- NOTE | 2022-10-13 08:34 | XR ---
EXAMINATION TYPE: XR knee complete bilateral DATE OF EXAM: 10/12/2022 COMPARISON: NONE HISTORY: Pain TECHNIQUE: Three views are submitted. FINDINGS: Left knee: Complete loss of joint space in the medial Coretta and moderate narrowing of patellofemor al joint. There is vascular calcifications.. Osseous structures are intact. No acute fracture seen. Right knee: There is mild narrowing of the medial compartment of the knee joint. There is mild narrow ing of the patellofemoral joint. Vascular calcifications seen IMPRESSION: 1. Severe left-sided osteoarthritis. Mild right-sided osteoarthritis.
--- NOTE | 2022-10-13 08:35 | XR ---
EXAM TYPE: LUMBAR SPINE X RAY SERIES COMPARISON: NONE HISTORY: Pain TECHNIQUE: 4 views are submitted. FINDINGS: Alignment is anatomic. The pedicles are intact. The transverse processes are intact. There is no s pondylolisthesis. Diffuse osteopenia. There is marked facet arthropathy lower lumbar spine with fora tiana bulging at L4-5 and L5-S1. There is diffuse osteopenia. Moderate degenerative disc disease L4-5 and L5-S1. IMPRESSION: 1. 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 There is a foraminal encroachment bilaterally likely present. Consider follow-up MRI
== END | disposition home or self-care (01) ==
LOC: RADXRMAIN 15:24
PROVIDERS: ATTEND Family Medicine
DX: M17.0 Bilateral primary osteoarthritis of knee (principal); M54.41 Lumbago with sciatica, right side; M16.9 Osteoarthritis of hip, unspecified; M25.851 Other specified joint disorders, right hip; M47.817 Spondylosis without myelopathy or radiculopathy, lumbosacral region
CPT/HCPCS: 72100; 73521